=== PATIENT | female | born 1955 | race Caucasian/White ===

== ENCOUNTER → 2016-08-13 | Outpatient (CLI) | payer BC, MEDICAID ==
[~2016-08-13] MED LIST: IOHEXOL 350 MG/ML 100 ML (OMNIPAQUE 350) VIAL IV ONE; NS 100 ML (IVPB) BAG IV ONE
[2016-08-13 13:13] LABS: BLOOD UREA NITROGEN 11 MG/DL (7-18); BUN/CREATININE RATIO 13; CREATININE SERUM 0.82 MG/DL (0.60-1.30); GFR ESTIMATED > 60
--- NOTE | 2016-08-13 17:42 | Diagnostic Imaging Report ---
PROCEDURE: CT chest with contrast only. TECHNIQUE: Multiple contiguous axial images were obtained through the chest after administration of intravenous contrast. INDICATION: Left lung mass seen on chest x-ray performed in an outside facility. 100 mL of Omnipaque 350 is administered intravenously. FINDINGS: There are minimal areas of atelectasis in the mid and lower left lung seen. This is not associated with significant consolidation, mass or suspicious nodule. There is no pleural or pericardial effusion. The thoracic aorta is normal in caliber. The heart size appears normal. No mediastinal mass. No hilar, mediastinal or axillary lymphadenopathy is seen. The sections of the upper abdomen demonstrate cholecystectomy clips. The osseous structures demonstrate mild degenerative changes. IMPRESSION: Mild subsegmental areas of atelectasis in the mid and lower left lung. No lung mass or suspicious nodule seen. Dictated by: Dictated on workstation # [id number]
== END ==
LOC: RAD 12:29
PROVIDERS: ATTEND Nurse Practitioner Family
DX: R91.8 Other nonspecific abnormal finding of lung field (principal); J98.11 Atelectasis
CPT/HCPCS: 36415; 71260; 82565; 84520

== ENCOUNTER → 2016-09-23 | Outpatient (CLI) | payer BC, MEDICAID ==
--- NOTE | 2016-10-02 09:50 | Diagnostic Imaging Report ---
Bilateral screening mammogram The current study was also evaluated with a Computer Aided Detection (CAD) system. Indication: Screening. No current complaints stated on the questionnaire. COMPARISON: 12/20/2008 FINDINGS: The breasts are composed of scattered fibroglandular densities. There are occasional benign-appearing calcifications. Allowing for technique and positional differences, no suspicious change is seen. IMPRESSION: No significant change. ACR BI-RADS Category 2: Benign findings. Result letter will be mailed to the patient. Note: At least 10% of breast cancer is not imaged by mammography. Dictated by: Dictated on workstation # [id number]
== END ==
LOC: RAD 14:58
PROVIDERS: ATTEND Nurse Practitioner Family
DX: Z12.31 Encounter for screening mammogram for malignant neoplasm of breast (principal)
CPT/HCPCS: 77067

== ENCOUNTER 2018-01-18 14:00 | Observation (INO) | payer BC, MEDICAID, OTHER ==
[~2018-01-18] VITALS: Ht 162.6 cm; Wt 98.4 kg
--- OUTSIDE RECORDS SUMMARY | 2018-01-18 14:04 | XMS REPORT ---
Author Author RAÚL CARLSON Organization [facility] Address [address] [place] [address] Care Team Providers Care Camp Dining Room Attendant Name Role Phone RAÚL CARLSON Unavailable PROBLEMS Type Condition ICD9-CM Code WAX89-YW Code Onset Dates Condition Status SNOMED Code Problem Post traumatic stress disorder (PTSD) F43.10 Active 05866407 Problem Psychophysiological insomnia F51.04 Active 392246649 Problem Essential (primary) hypertension I10 Active 58470608 Problem Bilateral low back pain without sciatica, unspecified chronicity M54.5 Active 510540066 Problem Forgetfulness R68.89 Active 46826214 Problem Severe episode of recurrent major depressive disorder, without psychotic features F33.2 Active 94102310 Problem Anxiety, generalized F41.1 Active 36497499 Problem Pinched nerve in neck G58.8 Active 90043123 Problem Type 2 diabetes mellitus without complication, without long-term current use of insulin E11.9 Active 071558677 Problem Vaginal dryness, menopausal N95.1 Active 39126013 Problem Mild intermittent asthma with acute exacerbation J45.21 Active 611641060 Problem Chronic nonintractable headache, unspecified headache type R51 Active 79649971 Problem Vitreous floaters of right eye H43.391 Active 20281324 ALLERGIES Substance Reaction Event Type Date Status Penicillin V Potassium anaphylaxis Drug Allergy Aug, Active tape Unknown Non Drug Allergy Aug, Active ENCOUNTERS Encounter Location Date Diagnosis [facility] [address] [facility] [id number], [place] [address] Dec, [facility] [address] [facility] [id number] [id number] Sep, Post traumatic stress disorder (PTSD) F43.10 ; Severe episode of recurrent major depressive disorder, without psychotic features F33.2 and Psychophysiological insomnia F51.04 [facility] [address] [id number], [place] [address] Aug, Dental examination Z01.20 [facility] [address] [id number], [place] [address] Aug, Dental caries on smooth surface penetrating into pulp K02.63 and Encounter for dental examination Z01.20 [facility] [address] [id number], [place] [address] Aug, Dental examination Z01.20 [facility] [id number] [place] [address] Aug, [facility] [id number] [place] [address] [phone] July, Other infective chronic otitis externa of right ear H60.391 [facility] [id number] [place] [address] July, [facility] [place] [id number] [place] [address] [phone] July, Other infective acute otitis externa of right ear H60.391 and Vaginal dryness, menopausal N95.1 [facility] [place] [id number] [place] [phone] July, [facility] [id number] [place] [address] [phone] July, Dental examination Z01.20 [facility] [address] [id number] [phone] July, [facility] [address] [place] [address] Jun, Post traumatic stress disorder (PTSD) F43.10 ; Severe episode of recurrent major depressive disorder, without psychotic features F33.2 and Psychophysiological insomnia F51.04 [facility] [place] [id number] [place] [id number] May, Cervicalgia M54.2 [facility] [id number] [place] [address] May, Pinched nerve in neck G58.8 [place] [id number] [place] [address] Apr, Post traumatic stress disorder (PTSD) F43.10 ; Severe episode of recurrent major depressive disorder, without psychotic features F33.2 and Psychophysiological insomnia F51.04 [place] [id number] [place] [address] Apr, [facility] [id number] [place] [address] [id number] 07 Apr, 2017 Mild intermittent asthma with acute exacerbation J45.21 [facility] [address] [id number] Apr, 2017 Chronic nonintractable headache, unspecified headache type R51 [place] [id number] [place] [address] Mar, Post traumatic stress disorder (PTSD) F43.10 ; Severe episode of recurrent major depressive disorder, without psychotic features F33.2 and Psychophysiological insomnia F51.04 [place] [id number] [place] [address] Mar, Post traumatic stress disorder (PTSD) F43.10 [facility] [id number] [place] [address] [phone] Mar, Type 2 diabetes mellitus without complication, without long-term current use of insulin E11.9 ; Bilateral low back pain without sciatica, unspecified chronicity M54.5 and Chronic nonintractable headache, unspecified headache type R51 [place] [id number] [place] [address] Feb, [facility] [address] [id number] Jan, Vitreous floaters of right eye H43.391 [facility] [id number] [place] [address] [phone] Jan, [place] [address] [address] Nov, Post traumatic stress disorder (PTSD) F43.10 ; Severe episode of recurrent major depressive disorder, without psychotic features F33.2 ; Psychophysiological insomnia F51.04 and Homeless Z59.0 [facility] [id number] [place] [address] Oct, Post traumatic stress disorder (PTSD) F43.10 ; Severe episode of recurrent major depressive disorder, without psychotic features F33.2 and Psychophysiological insomnia F51.04 [facility] [id number] [place] [address] [phone] Oct, Vaginal dryness, menopausal N95.1 and Dyspareunia in female N94.10 [facility] [id number] [place] [address] [phone] Oct, [facility] [id number] [place] [address] Aug, Post traumatic stress disorder (PTSD) F43.10 ; Severe episode of recurrent major depressive disorder, without psychotic features F33.2 and Psychophysiological insomnia F51.04 [facility] [id number] [place] [address] [phone] Aug, [facility] [id number] [place] [address] [phone] Aug, Well woman exam Z01.419 and Vaginal dryness, menopausal N95.1 [facility] [id number] [place] [address] July, [facility] [id number] [place] [address] July, [facility] [id number] [place] [address] July, Post traumatic stress disorder (PTSD) F43.10 ; Severe episode of recurrent major depressive disorder, without psychotic features F33.2 and Psychophysiological insomnia F51.04 [facility] [id number] [place] [address] [phone] July, Mass of left lung R91.8 [facility] [address], [place] [address] Jun, Shortness of breath R06.02 ; Wheezing R06.2 and Mild intermittent asthma with acute exacerbation J45.21 [facility] [address], [place] [address] May, Post traumatic stress disorder (PTSD) F43.10 ; Severe episode of recurrent major depressive disorder, without psychotic features F33.2 ; Essential (primary) hypertension I10 and Psychophysiological insomnia F51.04 [facility] [id number] [place] [phone] May, 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 and Headache, unspecified headache type R51 [facility] [id number] [place] [address] Apr, [facility] [id number] [place] [address] Apr, Post traumatic stress disorder (PTSD) F43.10 ; Severe episode of recurrent major depressive disorder, without psychotic features F33.2 ; Essential (primary) hypertension I10 and Psychophysiological insomnia F51.04 [facility] [address] [place] [address] 21664[address] Mar, Post traumatic stress disorder (PTSD) F43.10 and Severe episode of recurrent major depressive disorder, without psychotic features F33.2 [place] [address] [place] [address]53- 8[address] Feb, Post traumatic stress disorder (PTSD) F43.10 [place] [address] [place] [address]96[address] Feb, Post traumatic stress disorder (PTSD) F43.10 and Severe episode of recurrent major depressive disorder, without psychotic features F33.2 [facility] [address] [id number] Feb, Anxiety, generalized F41.1 and Severe episode of recurrent major depressive disorder, without psychotic features F33.2 [place] [address] [id number] [address] Feb, Severe episode of recurrent major depressive disorder, without psychotic features F33.2 and Anxiety, generalized F41.1 [facility] [place] [id number] [place] [address] [phone] Aug, [facility] [place] [id number] [place] [address] [phone] May, Forgetfulness R68.89 and Bilateral low back pain without sciatica, unspecified chronicity M54.5 [facility] [place] [id number] [place] [address] [phone] Apr, Forgetfulness R68.89 [facility] [place] [address] [id number] Jan, Irritant contact dermatitis due to other chemical products L24.5 [facility] [place] [id number] [place] [address] [phone] Sep, Nausea vomiting and diarrhea 787.91 [facility] [id number] [place] [address]46- 97[address] Jun, [facility] [id number] [place] [address] 56179 2546 Jun, [facility] [id number] [place] [address]46 July, [facility] [place] [id number] [place] [address] [phone] July, [facility] [place] [id number] [place] [address] [phone] Jun, [facility] [id number] [place] [address] 52176 2546 Jun, [facility] [place] [id number] [place] [address] [phone] May, [facility] [id number] [place] [address] 66194- 2546 May, [facility] [place] [id number] [place] [address] [phone] May, [facility] [address] [facility] [id number], [place] [address] May, [facility] [place] [facility] [address] [facility] [id number] [place] [address] May, [facility] [place] [facility] [address] [facility] [id number], [place] [address] May, [facility] [address] [facility] [id number] [place] [phone] Apr, [facility] [address] [facility] [id number], [place] [address] Apr, [facility] [address] [id number] [place] [phone] Apr, [facility] [address] [id number], [place] [address] Apr, [facility] [address] [id number] [place] [id number] Apr, [facility] [address] [id number], [place] [address] Apr, [facility] [address] [id number] [place] [id number] Apr, [facility] [address] [id number], [place] [address] Apr, [facility] [id number] [place] [id number] Apr, [facility] [place] [facility] [address] [id number], [place] [address] Apr, [facility] [place] [facility] [address] [facility] [id number], [place] [address] Jan, [facility] [place] [facility] [address] [facility] [id number], [place] [address] Jan, [facility] [address] [facility] [id number] [place] [phone] Dec, [facility] [address] [facility] [id number] [place] [id number] Oct, [facility] [place] [address] [facility] [id number] [place] [id number] Sep, [facility] [address] [facility] [id number] [place] [id number] Aug, [facility] [address] [id number] [place] [id number] Aug, [facility] [address] [id number] [place] [id number] Jun, [facility] [address] [facility] [id number] [place] [phone] May, [facility] [id number] [place] [phone] May, [facility] [address] [facility] [id number], [place] [address] Apr, IMMUNIZATIONS No Known Immunizations SOCIAL HISTORY Never Assessed REASON FOR VISIT Multi TE W N2O PLAN OF CARE Activity Details Follow Up PRN Reason: VITAL SIGNS Heart Rate 70 bpm 2017-09-08 Blood pressure systolic 172 mmHg 2017-09-08 Blood pressure diastolic 90 mmHg 2017-09-08 MEDICATIONS Medication Instructions Dosage Frequency Start Date End Date Duration Status Trazodone HCl 100 mg Orally Once a day 1/2 tablet at bedtime 24h 30 days Active Ibuprofen 800 MG Orally Three times a day 1 tablet 8h 23 May, 2015 Active Ventolin HFA 108 (90 Base) MCG/ACT Inhalation 4 times a day 2 puffs as needed 6h 07 Apr, 2017 Active Acetaminophen Active Ambien 5 mg Orally Once a day 1 tablet at bedtime 24h 30 days Active [place] 7.5-325 MG Orally every 4-6 hours as needed 1 tablet Aug, Active Clindamycin HCl 150 MG Orally with food every 8 hrs 2 capsules 8h 7 days Active Premarin 0.625 MG/GM Vaginal Daily for Three Weeks, 1 Week off then every other day for 3 weeks, then twice weekly 1 gram Active Cipro HC 0.2-1 % Otic Twice a day 3 drops into affected ear 12h July, 7 day(s) Active RESULTS No Results PROCEDURES Procedure Date Ordered Result Body Site EXTRAC ERUPTED TOOTH/EXPOSED ROOT September 08, 2017 SURG REMOVAL ERUPTED TOOTH September 08, 2017 Billing Notes on claim September 08, 2017 ANALG ANXIOLYSIS INHAL NITROUS OXID September 08, 2017 INSTRUCTIONS MEDICATIONS ADMINISTERED No Known Medications MEDICAL (GENERAL) HISTORY Type Description Date Medical History hypertension Medical History type II diabetes Medical History depression Medical History acid reflux Medical History anxiety Medical History PTSD Medical History headache Medical History asthma Surgical History cholecystectomy 1979 Surgical History tonsillectomy childhood Surgical History hysterectomy, total with bilateral salpingo-oophorectomy (BSO ) 1996 Hospitalization History surgeries
--- OUTSIDE RECORDS SUMMARY | 2018-01-18 14:04 | XMS REPORT ---
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 Name Role Phone CHRISTIAN RAYMOND Unavailable PROBLEMS Type Condition ICD9-CM Code TQS43-RB Code Onset Dates Condition Status SNOMED Code Problem Post traumatic stress disorder (PTSD) F43.10 Active 65224939 Problem Psychophysiological insomnia F51.04 Active 260531167 Problem Essential (primary) hypertension I10 Active 54830836 Problem Bilateral low back pain without sciatica, unspecified chronicity M54.5 Active 794359160 Problem Forgetfulness R68.89 Active 24720497 Problem Severe episode of recurrent major depressive disorder, without psychotic features F33.2 Active 19596323 Problem Anxiety, generalized F41.1 Active 17492103 Problem Pinched nerve in neck G58.8 Active 72161552 Problem Type 2 diabetes mellitus without complication, without long-term current use of insulin E11.9 Active 272546859 Problem Vaginal dryness, menopausal N95.1 Active 20428317 Problem Mild intermittent asthma with acute exacerbation J45.21 Active 765120783 Problem Chronic nonintractable headache, unspecified headache type R51 Active 80651219 Problem Vitreous floaters of right eye H43.391 Active 75239246 ALLERGIES No Information ENCOUNTERS Encounter Location Date Diagnosis [facility] [id number] [id number] Dec, [facility] [id number] [id number] Nov, [facility] [address] [address] 11 Sep, 2017 Post traumatic stress disorder (PTSD) F43.10 ; Severe episode of recurrent major depressive disorder, without psychotic features F33.2 and Psychophysiological insomnia F51.04 [facility] [address] [id number] [address] Aug, Dental examination Z01.20 [facility] [id number] [place] [address] Aug, Dental caries on smooth surface penetrating into pulp K02.63 and Encounter for dental examination Z01.20 [facility] [id number] [place] [address] Aug, Dental examination Z01.20 [facility] [id number] [place] [address] Aug, [facility] [place] [id number] [place] [id number] July, Other infective chronic otitis externa of right ear H60.391 [facility] [id number] [place] [address] July, [facility] [place] [id number] [place] [phone] July, Other infective acute otitis externa of right ear H60.391 and Vaginal dryness, menopausal N95.1 [facility] [address] [id number] [id number] July, [facility] [address] [id number][place] [phone] July, Dental examination Z01.20 [facility] [address] [id number][place] [id number] July, [facility] [address] [place] [address] Jun, Post traumatic stress disorder (PTSD) F43.10 ; Severe episode of recurrent major depressive disorder, without psychotic features F33.2 and Psychophysiological insomnia F51.04 [facility] [place] [id number] [id number] May, Cervicalgia M54.2 [facility] [id number] [place] [address] May, Pinched nerve in neck G58.8 [place] [address] [address] Apr, Post traumatic stress disorder (PTSD) F43.10 ; Severe episode of recurrent major depressive disorder, without psychotic features F33.2 and Psychophysiological insomnia F51.04 [address] [address] [address] Apr, [facility] [id number] [place] [id number] Apr, Mild intermittent asthma with acute exacerbation J45.[address] [id number] Apr, Chronic nonintractable headache, unspecified headache type R51 [address] [address] [address] Mar, Post traumatic stress disorder (PTSD) F43.10 ; Severe episode of recurrent major depressive disorder, without psychotic features F33.2 and Psychophysiological insomnia F51.04 [place] [address] [address] Mar, Post traumatic stress disorder (PTSD) F43.10 [address] [id number] [place] [id number] Mar, Type 2 diabetes mellitus without complication, without long-term current use of insulin E11.9 ; Bilateral low back pain without sciatica, unspecified chronicity M54.5 and Chronic nonintractable headache, unspecified headache type R51 [place] [id number] [place] [address] Feb, [address] [id number] Jan, Vitreous floaters of right eye H43.391 [facility] [id number] [place] [id number] Jan, [place] [address] [place] [address] Nov, Post traumatic stress disorder (PTSD) F43.10 ; Severe episode of recurrent major depressive disorder, without psychotic features F33.2 ; Psychophysiological insomnia F51.04 and Homeless Z59.0 [facility] [id number] [place] [address] Oct, Post traumatic stress disorder (PTSD) F43.10 ; Severe episode of recurrent major depressive disorder, without psychotic features F33.2 and Psychophysiological insomnia F51.04 [facility] [id number] [place] [address] [phone] Oct, Vaginal dryness, menopausal N95.1 and Dyspareunia in female N94.10 [facility] [id number] [place] [address] [id number] Oct, [facility] [id number] [place] [address] Aug, Post traumatic stress disorder (PTSD) F43.10 ; Severe episode of recurrent major depressive disorder, without psychotic features F33.2 and Psychophysiological insomnia F51.04 [facility] [id number] [place] [address] [id number] Aug, [facility] [id number] [place] [address] [phone] Aug, Well woman exam Z01.419 and Vaginal dryness, menopausal N95.1 [facility] [id number] [place] [address] July, [facility] [id number] [place] [address] July, [facility] [id number] [place] [address] July, Post traumatic stress disorder (PTSD) F43.10 ; Severe episode of recurrent major depressive disorder, without psychotic features F33.2 and Psychophysiological insomnia F51.04 [facility] [id number] [place] [address] [id number] July, Mass of left lung R91.8 [facility] [address], [place] [address] Jun, Shortness of breath R06.02 ; Wheezing R06.2 and Mild intermittent asthma with acute exacerbation J45.21 [facility] [address]100[place], [place] [address] May, Post traumatic stress disorder (PTSD) F43.10 ; Severe episode of recurrent major depressive disorder, without psychotic features F33.2 ; Essential (primary) hypertension I10 and Psychophysiological insomnia F51.04 [facility] [id number][place] [id number] May, 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 and Headache, unspecified headache type R51 [facility] [id number] [place] [address] Apr, [facility] [id number] [place] [address]65[address] Apr, Post traumatic stress disorder (PTSD) F43.10 ; Severe episode of recurrent major depressive disorder, without psychotic features F33.2 ; Essential (primary) hypertension I10 and Psychophysiological insomnia F51.04 [facility] [address] [place] [address]47[address] Mar, Post traumatic stress disorder (PTSD) F43.10 and Severe episode of recurrent major depressive disorder, without psychotic features F33.2 [facility] [address] [place] [address] Feb, Post traumatic stress disorder (PTSD) F43.10 [facility] [address] [place] [address] Feb, Post traumatic stress disorder (PTSD) F43.10 and Severe episode of recurrent major depressive disorder, without psychotic features F33.2 [facility] [id number], [place] [id number] Feb, Anxiety, generalized F41.1 and Severe episode of recurrent major depressive disorder, without psychotic features F33.2 [place] [id number] [place] [address] Feb, Severe episode of recurrent major depressive disorder, without psychotic features F33.2 and Anxiety, generalized F41.1 [facility] [place] [id number] [place] [address] [id number] Aug, [facility] [place] [id number] [place] [address] [phone] May, Forgetfulness R68.89 and Bilateral low back pain without sciatica, unspecified chronicity M54.5 [facility] [place] [id number] [place] [address] [id number] Apr, Forgetfulness R68.89 [facility] [place] [address] [id number] Jan, Irritant contact dermatitis due to other chemical products L24.5 [facility] [place] [id number] [place] [address] [phone] Sep, Nausea vomiting and diarrhea 787.91 [facility] [id number] [place] [address]- [address] Jun, [facility] [id number] [place] [address] 92104- [address] Jun, [facility] [id number] [place] [address]22- [address] July, [facility] [place] [id number] [place] [address] [id number] July, [facility] [place] [id number] [place] [address] [phone] Jun, [facility] [id number] [place] [address] 2546 Jun, [facility] [place] [id number] [place] [address] [phone] May, [facility] [id number] [place] [address]18- [address] May, [facility] [place] [id number] [place] [address] [phone] May, [facility] [place] [facility] [address] [facility] [id number], [place] [address] May, [facility] [place] [facility] [address] [facility] [id number] [place] [address]- [address] May, [facility] [place] [facility] [address] [facility] [id number] [place] [address]- [address] May, [facility] [address] [facility] [id number][place] [phone] Apr, [facility] [place] [facility] [address] [facility] [id number] [place] [address] Apr, [facility] [address] [facility] [id number][place] [phone] Apr, [facility] [place] [facility] [address], [place] [address] Apr, [facility] [address] [id number][place] [id number] Apr, [facility] [place] [facility] [id number], [place] [address] Apr, [facility] [address] [id number][place] [id number] Apr, [facility] [place] [facility] [id number], [place] [address] Apr, [facility] [address] [id number], [place] [id number] Apr, [facility] [place] [facility] [id number], [place] [address] Apr, [facility] [place] [facility] [address], [place] [address] Jan, [facility] [place] [facility] [address] [facility] [id number], [place] [address] Jan, [facility] [address] [id number][place] [id number] Dec, [facility] [address] [facility] [id number][place] [phone] Oct, [facility] [address] [facility] [id number], [place] [id number] Sep, [facility] [address] [id number], [place] [phone] Aug, [facility] [address] [id number][place] [id number] Aug, [facility] [address] [id number][place] [id number] Jun, [facility] [address] [id number] [id number] May, [id number] [id number] May, [facility] [address] [facility] [id number] [place] [address] Apr, IMMUNIZATIONS No Known Immunizations SOCIAL HISTORY Never Assessed REASON FOR VISIT Requests return call PLAN OF CARE VITAL SIGNS MEDICATIONS Medication Instructions Dosage Frequency Start Date End Date Duration Status Abilify 5 mg Orally Once a day 1 tablet 24h May, 30 days Active RESULTS No Results PROCEDURES No Known procedures INSTRUCTIONS MEDICATIONS ADMINISTERED No Known Medications MEDICAL [...]
--- OUTSIDE RECORDS SUMMARY | 2018-01-18 14:05 | XMS REPORT ---
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 Role Phone RAÚL CARLSON Unavailable PROBLEMS Type Condition ICD9-CM Code RAB25-NC Code Onset Dates Condition Status SNOMED Code Problem Post traumatic stress disorder (PTSD) F43.10 Active 30721393 Problem Psychophysiological insomnia F51.04 Active 574281922 Problem Essential (primary) hypertension I10 Active 43811267 Problem Bilateral low back pain without sciatica, unspecified chronicity M54.5 Active 510320406 Problem Forgetfulness R68.89 Active 07099215 Problem Severe episode of recurrent major depressive disorder, without psychotic features F33.2 Active 14993832 Problem Anxiety, generalized F41.1 Active 22026599 Problem Pinched nerve in neck G58.8 Active 16919172 Problem Type 2 diabetes mellitus without complication, without long-term current use of insulin E11.9 Active 890942777 Problem Vaginal dryness, menopausal N95.1 Active 76927503 Problem Mild intermittent asthma with acute exacerbation J45.21 Active 374998469 Problem Chronic nonintractable headache, unspecified headache type R51 Active 05972797 Problem Vitreous floaters of right eye H43.391 Active 49247815 ALLERGIES No Information ENCOUNTERS Encounter Location Date Diagnosis [facility] [address] [facility] [id number], [place] [address] Dec, [facility] [address], [place] [address] 11 Sep, 2017 Post traumatic stress disorder (PTSD) F43.10 ; Severe episode of recurrent major depressive disorder, without psychotic features F33.2 and Psychophysiological insomnia F51.04 [facility] [address] [id number] [place] [address] 25 Robel, 2018 Dental examination Z01.20 [facility] [address] [id number] [place] [address] Aug, Dental caries on smooth surface penetrating into pulp K02.63 and Encounter for dental examination Z01.20 [facility] [address] [id number] [place] [address] Aug, Dental examination Z01.20 [facility] [address] [id number] [place] [address] Aug, [facility] [id number] [place] [address] [id number] July, Other infective chronic otitis externa of right ear H60.391 [facility] [address] [id number] [place] [address] July, [facility] [id number] [place] [address] [phone] July, Other infective acute otitis externa of right ear H60.391 and Vaginal dryness, menopausal N95.1 [facility] [address] [id number] [phone] July, [facility] [address] [id number][place] [id number] July, Dental examination Z01.20 [facility] [address] [facility] [address] [id number] [phone] July, [facility] [address] [place] [address] Jun, Post traumatic stress disorder (PTSD) F43.10 ; Severe episode of recurrent major depressive disorder, without psychotic features F33.2 and Psychophysiological insomnia F51.04 [facility] [id number] [place] [address] [phone] May, Cervicalgia M54.2 [facility] [address] [place] [address] May, Pinched nerve in neck G58.8 [place] [id number] [place] [address] Apr, Post traumatic stress disorder (PTSD) F43.10 ; Severe episode of recurrent major depressive disorder, without psychotic features F33.2 and Psychophysiological insomnia F51.04 [place] [facility] [id number] [place] [address] Apr, [id number] [place] [address] [phone] [id number] Apr, 2017 Mild intermittent asthma with acute exacerbation J45.21 [address] [place] [id number] [place] [address] [phone] Apr, Chronic nonintractable headache, unspecified headache type R51 [place] [facility] [id number] [place] [address] Mar, Post traumatic stress disorder (PTSD) F43.10 ; Severe episode of recurrent major depressive disorder, without psychotic features F33.2 and Psychophysiological insomnia F51.04 [place] [id number] [place] [address] Mar, Post traumatic stress disorder (PTSD) F43.10 [place] [id number] [place] [address] [id number] Mar, Type 2 diabetes mellitus without complication, without long-term current use of insulin E11.9 ; Bilateral low back pain without sciatica, unspecified chronicity M54.5 and Chronic nonintractable headache, unspecified headache type R51 [place] [address] [place] [address] Feb, [place] [id number] [place] [address] [phone] Jan, Vitreous floaters of right eye H43.391 [address] [id number] [place] [address] [id number] Jan, [place] [id number] [place] [address] Nov, Post traumatic stress disorder (PTSD) F43.10 ; Severe episode of recurrent major depressive disorder, without psychotic features F33.2 ; Psychophysiological insomnia F51.04 and Homeless Z59.0 [facility] [address] [address] Oct, Post traumatic stress disorder (PTSD) F43.10 ; Severe episode of recurrent major depressive disorder, without psychotic features F33.2 and Psychophysiological insomnia F51.04 [facility] [id number] [place] [address] [id number] Oct, Vaginal dryness, menopausal N95.1 and Dyspareunia in female N94.10 [facility] [address] [id number] Oct, [facility] [id number] [place] [address] Aug, Post traumatic stress disorder (PTSD) F43.10 ; Severe episode of recurrent major depressive disorder, without psychotic features F33.2 and Psychophysiological insomnia F51.04 [facility] [id number] [place] [address] [phone] Aug, [facility] [id number] [place] [address] [id number] Aug, Well woman exam Z01.419 and Vaginal dryness, menopausal N95.1 [facility] [id number] [place] [address] July, [facility] [id number] [place] [address] July, [facility] [id number] [place] [address] July, Post traumatic stress disorder (PTSD) F43.10 ; Severe episode of recurrent major depressive disorder, without psychotic features F33.2 and Psychophysiological insomnia F51.04 [facility] [id number] [place] [address] [phone] July, Mass of left lung R91.8 [facility] [id number] [place] [address] Jun, Shortness of breath R06.02 ; Wheezing R06.2 and Mild intermittent asthma with acute exacerbation J45.21 [place] [id number] [place] [address] May, Post traumatic stress disorder (PTSD) F43.10 ; Severe episode of recurrent major depressive disorder, without psychotic features F33.2 ; Essential (primary) hypertension I10 and Psychophysiological insomnia F51.04 [facility] [id number] [phone] May, 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 and Headache, unspecified headache type R51 [place] [id number] [place] [address] 99383[address] Apr, [place] [id number] [place] [address] 51971[address] 7183 Apr, Post traumatic stress disorder (PTSD) F43.10 ; Severe episode of recurrent major depressive disorder, without psychotic features F33.2 ; Essential (primary) hypertension I10 and Psychophysiological insomnia F51.04 [place] [address] [place] [address] 40535- 2759 Mar, Post traumatic stress disorder (PTSD) F43.10 and Severe episode of recurrent major depressive disorder, without psychotic features F33.2 [place] [address] [place] [address] 02905- 5[address] Feb, Post traumatic stress disorder (PTSD) F43.10 [facility] [facility] [id number] [place] [address] 13568- 8[address] Feb, Post traumatic stress disorder (PTSD) F43.10 and Severe episode of recurrent major depressive disorder, without psychotic features F33.2 [facility] [address] [id number] Feb, Anxiety, generalized F41.1 and Severe episode of recurrent major depressive disorder, without psychotic features F33.2 [facility] [facility] [id number] [place] [address] 65530- 7983 Feb, Severe episode of recurrent major depressive disorder, without psychotic features F33.2 and Anxiety, generalized F41.1 [facility] [id number] [place] [address] [id number] Aug, [facility] [id number] [place] [address] [id number] May, Forgetfulness R68.89 and Bilateral low back pain without sciatica, unspecified chronicity M54.5 [facility] [id number] [place] [address] [phone] Apr, Forgetfulness R68.89 [facility] [id number] [place] [address] [id number] Jan, Irritant contact dermatitis due to other chemical products L24.5 [facility] [id number] [place] [address] [id number] Sep, Nausea vomiting and diarrhea 787.91 [facility] [address] [address] Jun, [facility] [id number] [place] [address] 11249- 6816 Jun, [facility] [address] [address] July, [facility] [id number] [place] [address] [id number] July, [facility] [id number] [place] [address] [phone] Jun, [facility] [id number] [place] [address] 72009- 5387 Jun, [facility] [id number] [place] [address] [id number] May, [facility] [id number] [place] [address] 82534- 5696 May, [facility] [id number] [place] [address] [phone] May, [facility] [address] [id number] 3566 May, [facility] [address] [facility] [id number], [place] [address] May, [facility] [address] [facility] [id number], [place] [address] May, [facility] [address] [id number] [place] [id number] Apr, [facility] [address] [facility] [id number], [place] [address] Apr, [facility] [address] [id number] [id number] Apr, [facility] [address] [facility] [id number], [place] [address] Apr, [facility] [address] [id number][place] [phone] Apr, [facility] [address] [facility] [id number], [place] [address] Apr, [facility] [address] [id number][place] [id number] Apr, [facility] [address] [facility] [id number], [place] [address] Apr, [facility] [address] [facility] [id number][place] [id number] Apr, [facility] [address] [facility] [id number], [place] [address] Apr, [facility] [address] [facility] [id number], [place] [address] Jan, [facility] [address] [facility] [id number], [place] [address] Jan, [facility] [address] [id number][place] [id number] Dec, [facility] [address] [id number][place] [id number] Oct, [facility] [address] [id number][place] [id number] Sep, [place] [id number] [id number] Aug, [place] [id number] [id number] Aug, [place] [id number] [id number] Jun, [place] [id number] [id number] May, [address] [id number] [id number] May, [facility] [address] [facility] [id number]12[place] Apr, IMMUNIZATIONS No Known Immunizations SOCIAL HISTORY Never Assessed REASON FOR VISIT Referral Change requested PLAN OF CARE VITAL SIGNS MEDICATIONS Unknown Medications RESULTS No Results PROCEDURES No Known procedures [...]
--- OUTSIDE RECORDS SUMMARY | 2018-01-18 14:05 | XMS REPORT ---
Author Author CHRISTIAN RAYMOND [facility] [address] Address [address] [place] [address] Care Team Providers Care Criminal Legal Assistant Name Role Phone FLOR RAYMONDJONO Unavailable PROBLEMS Type Condition ICD9-CM Code KYI94-[place] Code Onset Dates Condition Status SNOMED Code Problem Post traumatic stress disorder (PTSD) F43.10 Active 22373391 Problem Psychophysiological insomnia F51.04 Active 055805682 Problem Essential (primary) hypertension I10 Active 49587112 Problem Bilateral low back pain without sciatica, unspecified chronicity M54.5 Active 848359089 Problem Forgetfulness R68.89 Active 75152715 Problem Severe episode of recurrent major depressive disorder, without psychotic features F33.2 Active 02005296 Problem Anxiety, generalized F41.1 Active 55251883 Problem Pinched nerve in neck G58.8 Active 53326215 Problem Type 2 diabetes mellitus without complication, without long-term current use of insulin E11.9 Active 425296397 Problem Vaginal dryness, menopausal N95.1 Active 74688382 Problem Mild intermittent asthma with acute exacerbation J45.21 Active 366733844 Problem Chronic nonintractable headache, unspecified headache type R51 Active 19652607 Problem Vitreous floaters of right eye H43.391 Active 04297595 ALLERGIES No Information ENCOUNTERS Encounter Location Date Diagnosis [facility] [address] [facility] [id number] [address] Dec, [facility] [address] [id number] [address] Sep, Post traumatic stress disorder (PTSD) F43.10 ; Severe episode of recurrent major depressive disorder, without psychotic features F33.2 and Psychophysiological insomnia F51.04 [facility] [address] [id number] [address] Aug, Dental examination Z01.20 [facility] [address] [id number] [place] [address] Aug, Dental caries on smooth surface penetrating into pulp K02.63 and Encounter for dental examination Z01.20 [facility] [address] [id number] [place] [address] Aug, Dental examination Z01.20 [facility] [id number] [place] [address] Aug, [facility] [id number] [place] [address] [phone] July, Other infective chronic otitis externa of right ear H60.391 [facility] [address] [id number] [place] [address] July, [facility] [id number] [place] [address] [id number] July, Other infective acute otitis externa of right ear H60.391 and Vaginal dryness, menopausal N95.1 [facility] [address] [id number] [phone] July, [facility] [id number] [place] [id number] July, Dental examination Z01.20 [facility] [address] [facility] [address] [id number][place] [phone] July, [facility] [address] [place] [address] Jun, Post traumatic stress disorder (PTSD) F43.10 ; Severe episode of recurrent major depressive disorder, without psychotic features F33.2 and Psychophysiological insomnia F51.04 [facility] [id number] [place] [address] [phone] May, Cervicalgia M54.2 [facility] [id number] [place] [address] May, Pinched nerve in neck G58.8 [facility] [id number] [place] [address] Apr, Post traumatic stress disorder (PTSD) F43.10 ; Severe episode of recurrent major depressive disorder, without psychotic features F33.2 and Psychophysiological insomnia F51.04 [id number] [place] [address] Apr, [facility] [id number] [place] [address] [phone] Apr, Mild intermittent asthma with acute exacerbation J45.21 [id number] [place] [address] [phone] Apr, Chronic nonintractable headache, unspecified headache type R51 [address] [id number] [place] [address] Mar, Post traumatic stress disorder (PTSD) F43.10 ; Severe episode of recurrent major depressive disorder, without psychotic features F33.2 and Psychophysiological insomnia F51.04 [address] [place] [id number] [place] [address] Mar, Post traumatic stress disorder (PTSD) F43.10 [id number] [place] [address] [id number] Mar, Type 2 diabetes mellitus without complication, without long-term current use of insulin E11.9 ; Bilateral low back pain without sciatica, unspecified chronicity M54.5 and Chronic nonintractable headache, unspecified headache type R51 [address] [place] [address] Feb, [id number] [place] [address] [id number] Jan, Vitreous floaters of right eye H43.391 [id number] [place] [address] [phone] Jan, [address] [place] [id number] [place] [address] Nov, Post traumatic stress disorder (PTSD) F43.10 ; Severe episode of recurrent major depressive disorder, without psychotic features F33.2 ; Psychophysiological insomnia F51.04 and Homeless Z59.0 [facility] [id number] [place] [address] Oct, Post traumatic stress disorder (PTSD) F43.10 ; Severe episode of recurrent major depressive disorder, without psychotic features F33.2 and Psychophysiological insomnia F51.04 [facility] [id number] [place] [address] [phone] Oct, Vaginal dryness, menopausal N95.1 and Dyspareunia in female N94.10 [facility] [id number] [place] [address] [id number] Oct, [facility] [id number] [place] [address] Aug, Post traumatic stress disorder (PTSD) F43.10 ; Severe episode of recurrent major depressive disorder, without psychotic features F33.2 and Psychophysiological insomnia F51.04 [facility] [id number] [place] [address] [id number] Aug, [facility] [id number] [place] [address] [id number] Aug, Well woman exam Z01.419 and Vaginal dryness, menopausal N95.1 [facility] [id number] [place] [address] July, [facility] [id number] [place] [address]26[address] July, [facility] [id number] [place] [address] 76902- [address] July, Post traumatic stress disorder (PTSD) F43.10 ; Severe episode of recurrent major depressive disorder, without psychotic features F33.2 and Psychophysiological insomnia F51.04 [facility] [id number] [place] [address] [id number] July, Mass of left lung R91.8 [facility] [id number] [place] [address] Jun, Shortness of breath R06.02 ; Wheezing R06.2 and Mild intermittent asthma with acute exacerbation J45.21 [facility] [address] [address] May, Post traumatic stress disorder (PTSD) F43.10 ; Severe episode of recurrent major depressive disorder, without psychotic features F33.2 ; Essential (primary) hypertension I10 and Psychophysiological insomnia F51.04 [facility] [id number] [phone] May, 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 and Headache, unspecified headache type R51 [facility] [address] [place] [address]21[address] Apr, [facility] [id number] [place] [address] 47485- 3798 Apr, Post traumatic stress disorder (PTSD) F43.10 ; Severe episode of recurrent major depressive disorder, without psychotic features F33.2 ; Essential (primary) hypertension I10 and Psychophysiological insomnia F51.04 [address] [address] Mar, Post traumatic stress disorder (PTSD) F43.10 and Severe episode of recurrent major depressive disorder, without psychotic features F33.2 [facility] [address] [address] Feb, Post traumatic stress disorder (PTSD) F43.10 [address] [place] [address] Feb, Post traumatic stress disorder (PTSD) F43.10 and Severe episode of recurrent major depressive disorder, without psychotic features F33.2 [facility] [id number][place] [id number] Feb, Anxiety, generalized F41.1 and Severe episode of recurrent major depressive disorder, without psychotic features F33.2 [facility] [address] [address] Feb, Severe episode of recurrent major depressive disorder, without psychotic features F33.2 and Anxiety, generalized F41.1 [facility] [id number][place] [id number] Aug, [facility] [id number] [place] [address] [id number] May, Forgetfulness R68.89 and Bilateral low back pain without sciatica, unspecified chronicity M54.5 [facility] [id number] [place] [address] [id number] Apr, Forgetfulness R68.89 [facility] [id number] [place] [address] [id number] Jan, Irritant contact dermatitis due to other chemical products L24.5 [facility] [id number] [place] [address] [id number] Sep, Nausea vomiting and diarrhea 787.91 [facility] [id number] [place] [address] 51044- 6996 Jun, [facility] [id number] [place] [address] 21894- 2546 Jun, [facility] [id number] [place] [address] 46937- 0366 July, [facility] [id number] [place] [address] [id number] July, [facility] [id number] [place] [address] [id number] Jun, [facility] [id number] [place] [address] 10617 2546 Jun, [facility] [id number] [place] [address] [phone] May, [facility] [id number] [place] [address] 35391- 1696 May, [facility] [id number] [place] [address] [id number] May, [facility] [id number] [place] [address] 63627- 2826 May, [facility] [address] [facility] [id number] [place] [address] May, [facility] [address] [facility] [id number] [place] [address] May, [facility] [address] [id number][place] [phone] Apr, [facility] [address] [facility] [id number] [place] [address] Apr, [facility] [address] [id number] [place] [id number] Apr, [facility] [address] [facility] [id number] [place] [address] Apr, [facility] [address] [id number][place] [id number] Apr, [facility] [address] [facility] [id number] [place] [address]46 Apr, [facility] [address] [id number], [place] [phone] Apr, [facility] [address] [facility] [id number] [place] [address] Apr, [facility] [address] [id number], [place] [id number] Apr, [facility] [address] [facility] [id number] [place] [address] Apr, [facility] [address] [facility] [id number] [place] [address] Jan, [facility] [address] [facility] [id number] [place] [address] Jan, [facility] [address] [id number], [place] [id number] Dec, [facility] [address] [id number][place] [phone] Oct, [facility] [address] [id number] [place] [phone] Sep, [facility] [address] [facility] [id number][place] [id number] Aug, [facility] [address] [facility] [id number], [place] [id number] Aug, [facility] [address] [facility] [id number], [place] [phone] Jun, [facility] [address] [facility] [id number], [place] [id number] May, [facility] [address] [facility] [id number][place] [phone] May, [facility] [address] [facility] [id number] [place] [address] Apr, IMMUNIZATIONS No Known Immunizations SOCIAL HISTORY Never Assessed REASON FOR VISIT f/u PLAN OF CARE Activity Details Follow Up 3 Months Reason: VITAL SIGNS Height 64.75 in 2017-09-29 Weight 229.0 lbs 2017-09-29 Heart Rate 78 bpm 2017-09-29 Respiratory Rate 22 2017-09-29 BMI 38.4 kg/m2 2017-09-29 Blood pressure systolic 144 mmHg 2017-09-29 Blood pressure diastolic 74 mmHg 2017-09-29 MEDICATIONS Medication Instructions Dosage Frequency Start Date End Date Duration Status Cipro HC 0.2-1 % Otic Twice a day 3 drops into affected ear 12h July, 7 day(s) Not-Taking Premarin 0.625 MG/GM Vaginal Daily for Three Weeks, 1 Week off then every other day for 3 weeks, then twice weekly 1 gram Active Acetaminophen Active [place]ao 7.5-325 MG Orally every 4-6 hours as needed 1 tablet 20 Aug, 2017 Not-Taking Ventolin HFA 108 (90 Base) MCG/ACT Inhalation 4 times a day 2 puffs as needed 6h Apr, Active Ibuprofen 800 MG Orally Three times a day 1 tablet 8h 23 May, 2015 Active Trazodone HCl 50 mg Orally 2 times a day 1 tablet 12h 30 days Active Clindamycin HCl 150 MG Orally with food every 8 hrs 2 capsules 8h 7 days Not-Taking Ambien 5 mg Orally Once a day 1 tablet at bedtime 24h Sep, 30 days Active RESULTS No Results PROCEDURES [...]
--- OUTSIDE RECORDS SUMMARY | 2018-01-18 14:05 | XMS REPORT ---
Author Author KELSY QUESADA Organization [facility] Address [address] [place] [address] Care Team Providers Care Deputy Director Name Role Phone KELSY QUESADA Unavailable PROBLEMS Type Condition ICD9-CM Code YFT71-EC Code Onset Dates Condition Status SNOMED Code Problem Post traumatic stress disorder (PTSD) F43.10 Active 74790914 Problem Psychophysiological insomnia F51.04 Active 512393820 Problem Essential (primary) hypertension I10 Active 32305859 Problem Bilateral low back pain without sciatica, unspecified chronicity M54.5 Active 584867069 Problem Forgetfulness R68.89 Active 46116548 Problem Severe episode of recurrent major depressive disorder, without psychotic features F33.2 Active 09104538 Problem Anxiety, generalized F41.1 Active 04064327 Problem Pinched nerve in neck G58.8 Active 31497247 Problem Type 2 diabetes mellitus without complication, without long-term current use of insulin E11.9 Active 173206252 Problem Vaginal dryness, menopausal N95.1 Active 08427063 Problem Mild intermittent asthma with acute exacerbation J45.21 Active 474513344 Problem Chronic nonintractable headache, unspecified headache type R51 Active 81915500 Problem Vitreous floaters of right eye H43.391 Active 26658699 ALLERGIES Substance Reaction Event Type Date Status Penicillin V Potassium anaphylaxis Drug Allergy Aug, Active tape Unknown Non Drug Allergy Aug, Active ENCOUNTERS Encounter Location Date Diagnosis [facility] [address] [facility] [id number] [address] Dec, [facility] [address] [facility] [id number] [address] Sep, Post traumatic stress disorder (PTSD) F43.10 ; Severe episode of recurrent major depressive disorder, without psychotic features F33.2 and Psychophysiological insomnia F51.04 [facility] [address] [id number], [place] [address] Aug, Dental examination Z01.20 [facility] [id number] [place] [address] Aug, Dental caries on smooth surface penetrating into pulp K02.63 and Encounter for dental examination Z01.20 [facility] [address] [id number], [place] [address] Aug, Dental examination Z01.20 [facility] [id number] [place] [address] Aug, [facility] [id number] [place] [phone] July, Other infective chronic otitis externa of right ear H60.391 [facility] [id number] [place] [address] July, [facility] [id number] [place] [id number] July, Other infective acute otitis externa of right ear H60.391 and Vaginal dryness, menopausal N95.1 [facility] [place] [address] [id number] [place] [id number] July, [facility] [address] [id number] [place] [id number] July, Dental examination Z01.20 [facility] [address] [id number] [place] [phone] July, [facility] [address] [address] Jun, Post traumatic stress disorder (PTSD) F43.10 ; Severe episode of recurrent major depressive disorder, without psychotic features F33.2 and Psychophysiological insomnia F51.04 [facility] [id number] [id number] May, Cervicalgia M54.2 [facility] [id number] [place] [phone] May, Pinched nerve in neck G58.8 [facility] [id number] [place] [address] Apr, Post traumatic stress disorder (PTSD) F43.10 ; Severe episode of recurrent major depressive disorder, without psychotic features F33.2 and Psychophysiological insomnia F51.04 [place] [address] [address] Apr, [facility] [id number] [place] [phone] Apr, Mild intermittent asthma with acute exacerbation J45.[address] [id number] Apr, Chronic nonintractable headache, unspecified headache type R51 [place] [id number] [place] [address] Mar, Post traumatic stress disorder (PTSD) F43.10 ; Severe episode of recurrent major depressive disorder, without psychotic features F33.2 and Psychophysiological insomnia F51.04 [place] [id number] [place] [address] Mar, Post traumatic stress disorder (PTSD) F43.10 [facility] [id number] [place] [address] [id number] Mar, Type 2 diabetes mellitus without complication, without long-term current use of insulin E11.9 ; Bilateral low back pain without sciatica, unspecified chronicity M54.5 and Chronic nonintractable headache, unspecified headache type R51 [place] [id number] [place] [address] Feb, [address] [id number] Jan, Vitreous floaters of right eye H43.391 [facility] [id number] [place] [phone] Jan, [place] [address] [address] Nov, Post traumatic stress disorder (PTSD) F43.10 ; Severe episode of recurrent major depressive disorder, without psychotic features F33.2 ; Psychophysiological insomnia F51.04 and Homeless Z59.0 [facility] [address], [place] [address] Oct, Post traumatic stress disorder (PTSD) F43.10 ; Severe episode of recurrent major depressive disorder, without psychotic features F33.2 and Psychophysiological insomnia F51.04 [facility] [id number] [place] [id number] Oct, Vaginal dryness, menopausal N95.1 and Dyspareunia in female N94.10 [facility] [id number] [place] [address] [phone] Oct, [facility] [id number] [place] [address] Aug, Post traumatic stress disorder (PTSD) F43.10 ; Severe episode of recurrent major depressive disorder, without psychotic features F33.2 and Psychophysiological insomnia F51.04 [facility] [address] [id number] [id number] Aug, [facility] [id number] [place] [address] [id number] Aug, Well woman exam Z01.419 and Vaginal dryness, menopausal N95.1 [facility] [address], [place] [address] July, [facility] [id number] [place] [address] July, [facility] [address] [place] [address] July, Post traumatic stress disorder (PTSD) F43.10 ; Severe episode of recurrent major depressive disorder, without psychotic features F33.2 and Psychophysiological insomnia F51.04 [facility] [id number] [place] [id number] July, Mass of left lung R91.8 [facility] [address], [place] [address] Jun, Shortness of breath R06.02 ; Wheezing R06.2 and Mild intermittent asthma with acute exacerbation J45.21 [facility] [address]100[place], [place] [address] May, Post traumatic stress disorder (PTSD) F43.10 ; Severe episode of recurrent major depressive disorder, without psychotic features F33.2 ; Essential (primary) hypertension I10 and Psychophysiological insomnia F51.04 [facility] [id number] [place] [id number] May, 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 and Headache, unspecified headache type R51 [facility] [address] [place] [address] Apr, [facility] [id number] [place] [address] Apr, Post traumatic stress disorder (PTSD) F43.10 ; Severe episode of recurrent major depressive disorder, without psychotic features F33.2 ; Essential (primary) hypertension I10 and Psychophysiological insomnia F51.04 [facility] [address] [place] [address] Mar, Post traumatic stress disorder (PTSD) F43.10 and Severe episode of recurrent major depressive disorder, without psychotic features F33.2 [facility] [address] [place] [address] Feb, Post traumatic stress disorder (PTSD) F43.10 [facility] [address] [place] [address] Feb, Post traumatic stress disorder (PTSD) F43.10 and Severe episode of recurrent major depressive disorder, without psychotic features F33.2 [facility] [address] [phone] Feb, Anxiety, generalized F41.1 and Severe episode of recurrent major depressive disorder, without psychotic features F33.2 [facility] [address] [place] [address] Feb, Severe episode of recurrent major depressive disorder, without psychotic features F33.2 and Anxiety, generalized F41.1 [facility] [id number] [place] [address] [id number] Aug, [facility] [id number] [place] [address] [id number] May, Forgetfulness R68.89 and Bilateral low back pain without sciatica, unspecified chronicity M54.5 [facility] [id number] [place] [address] [id number] Apr, Forgetfulness R68.89 [facility] [id number] [place] [address] [id number] Jan, Irritant contact dermatitis due to other chemical products L24.5 [facility] [id number] [place] [address] [id number] Sep, Nausea vomiting and diarrhea 787.91 [facility] [id number] [place] [address] Jun, [facility] [id number] [place] [address] Jun, [facility] [id number] [place] [address] July, [facility] [id number] [place] [address] [id number] July, [facility] [id number] [place] [address] [phone] Jun, [facility] [id number] [place] [address] Jun, [facility] [id number] [place] [address] [phone] May, [facility] [id number] [place] [address] May, [facility] [id number] [place] [address] [id number] May, [facility] [address] [facility] [id number] [address] May, [facility] [place] [facility] [address] [facility] [id number] [place] [address] May, [facility] [place] [facility] [address] [facility] [id number] [place] [address] May, [facility] [address] [facility] [id number] [place] [id number] Apr, [facility] [place] [facility] [address] [facility] [id number] [place] [address] Apr, [facility] [address] [facility] [id number] [place] [id number] Apr, [facility] [address] [facility] [id number], [place] [address] Apr, [facility] [address] [id number] [phone] Apr, [facility] [address] [id number], [place] [address] Apr, [facility] [address] [facility] [id number] [place] [phone] Apr, [facility] [address] [facility] [id number], [place] [address] Apr, [facility] [address] [id number] [place] [id number] Apr, [facility] [place] [facility] [address] [facility] [id number], [place] [address] Apr, [facility] [place] [facility] [address] [facility] [id number], [place] [address] Jan, [facility] [place] [facility] [address] [facility] [id number] [place] [address] Jan, [facility] [address] [id number] [place] [id number] Dec, [facility] [address] [facility] [id number] [place] [id number] Oct, [facility] [address] [facility] [id number] [place] [phone] Sep, [facility] [address] [facility] [id number] [place] [id number] Aug, [facility] [address] [facility] [id number] [place] [id number] Aug, [facility] [address] [id number] [place] [id number] Jun, [facility] [address] [facility] [id number] [place] [phone] May, [facility] [address] [id number] [place] [id number] May, [facility] [address] [facility] [id number] [address] Apr, IMMUNIZATIONS No Known Immunizations SOCIAL HISTORY Never Assessed REASON FOR VISIT JOHAN PLAN OF CARE Activity Details Follow Up Multi Extraction with N2o 1hr Rincon Reason: VITAL SIGNS Height 64.75 in 2017-08-23 Heart Rate 60 bpm 2017-08-23 Blood pressure systolic 120 mmHg 2017-08-23 Blood pressure diastolic 80 mmHg 2017-08-23 MEDICATIONS Medication Instructions Dosage Frequency Start Date End Date Duration Status Clindamycin HCl 150 MG Orally with food every 8 hrs 2 capsules 8h 7 days Active Ibuprofen 800 MG Orally Three times a day 1 tablet 8h 23 May, 2015 Active Ventolin HFA 108 (90 Base) MCG/ACT Inhalation 4 times a day 2 puffs as needed 6h 07 Apr, 2017 Active Acetaminophen Active Trazodone HCl 100 mg Orally Once a day 1/2 tablet at bedtime 24h 30 days Active Ambien 5 mg Orally Once a day 1 tablet at bedtime 24h 30 days Active Cipro HC 0.2-1 % Otic Twice a day 3 drops into affected ear 12h July, 7 day(s) Active Premarin 0.625 MG/GM Vaginal Daily for Three Weeks, 1 Week off then every other day for 3 weeks, then twice weekly 1 gram Active RESULTS No Results PROCEDURES Procedure Date Ordered Result Body Site RE-EVALUATION - LTD PROBLEM FOCUSED August 23, 2017 INSTRUCTIONS MEDICATIONS ADMINISTERED No Known Medications [...]
--- OUTSIDE RECORDS SUMMARY | 2018-01-18 14:05 | XMS REPORT ---
Author Author KELSY QUESADA Organization [facility] Address [address] [place] [address] Care Team Providers Care Laborer Syrup Machine Name Role Phone KELSY QUESADA Unavailable PROBLEMS Type Condition ICD9-CM Code VOY19-XH Code Onset Dates Condition Status SNOMED Code Problem Post traumatic stress disorder (PTSD) F43.10 Active 83257974 Problem Psychophysiological insomnia F51.04 Active 020125120 Problem Essential (primary) hypertension I10 Active 52290443 Problem Bilateral low back pain without sciatica, unspecified chronicity M54.5 Active 681753887 Problem Forgetfulness R68.89 Active 15652917 Problem Severe episode of recurrent major depressive disorder, without psychotic features F33.2 Active 04904716 Problem Anxiety, generalized F41.1 Active 77324451 Problem Pinched nerve in neck G58.8 Active 09840971 Problem Type 2 diabetes mellitus without complication, without long-term current use of insulin E11.9 Active 668227185 Problem Vaginal dryness, menopausal N95.1 Active 83471741 Problem Mild intermittent asthma with acute exacerbation J45.21 Active 115208316 Problem Chronic nonintractable headache, unspecified headache type R51 Active 82848372 Problem Vitreous floaters of right eye H43.391 Active 45794591 ALLERGIES Substance Reaction Event Type Date Status Penicillin V Potassium anaphylaxis Drug Allergy Aug, Active tape Unknown Non Drug Allergy Aug, Active ENCOUNTERS Encounter Location Date Diagnosis [facility] [address] [facility] [id number] [address] Dec, [facility] [address] [facility] [place] [id number], [place] [address] Sep, Post traumatic stress disorder (PTSD) F43.10 ; Severe episode of recurrent major depressive disorder, without psychotic features F33.2 and Psychophysiological insomnia F51.04 [facility] [address] [id number], [place] [address] Aug, Dental examination Z01.20 [facility] [id number] [place] [address] Aug, Dental caries on smooth surface penetrating into pulp K02.63 and Encounter for dental examination Z01.20 [facility] [address] [id number], [place] [address] Aug, Dental examination Z01.20 [facility] [id number] [place] [address] Aug, [facility] [id number] [place] [id number] July, Other infective chronic otitis externa of right ear H60.391 [facility] [id number] [place] [address] July, [facility] [id number] [place] [id number] July, Other infective acute otitis externa of right ear H60.391 and Vaginal dryness, menopausal N95.1 [facility] [place] [address] [id number] [place] [phone] July, [facility] [address] [id number] [place] [id number] July, Dental examination Z01.20 [facility] [address] [id number] [place] [phone] July, [facility] [address]65[address] [address] Jun, Post traumatic stress disorder (PTSD) F43.10 ; Severe episode of recurrent major depressive disorder, without psychotic features F33.2 and Psychophysiological insomnia F51.04 [facility] [place] [id number] [place] [id number] May, Cervicalgia M54.2 [facility] [address] [place] [address] May, Pinched nerve in neck G58.8 [facility] [id number] [place] [address] Apr, Post traumatic stress disorder (PTSD) F43.10 ; Severe episode of recurrent major depressive disorder, without psychotic features F33.2 and Psychophysiological insomnia F51.04 [place] [address] [address] Apr, [facility] [id number] [place] [phone] Apr, Mild intermittent asthma with acute exacerbation J45.[address] [id number] Apr, Chronic nonintractable headache, unspecified headache type R51 [place] [id number] [place] [address] Mar, Post traumatic stress disorder (PTSD) F43.10 ; Severe episode of recurrent major depressive disorder, without psychotic features F33.2 and Psychophysiological insomnia F51.04 [place] [id number] [place] [address] Mar, Post traumatic stress disorder (PTSD) F43.10 [facility] [id number] [place] [phone] Mar, Type 2 diabetes mellitus without complication, without long-term current use of insulin E11.9 ; Bilateral low back pain without sciatica, unspecified chronicity M54.5 and Chronic nonintractable headache, unspecified headache type R51 [place] [id number] [place] [address] Feb, [address] [id number] Jan, Vitreous floaters of right eye H43.391 [facility] [id number] [place] [phone] Jan, [place] [address] [address] Nov, Post traumatic stress disorder (PTSD) F43.10 ; Severe episode of recurrent major depressive disorder, without psychotic features F33.2 ; Psychophysiological insomnia F51.04 and Homeless Z59.0 [facility] [address]65100[place], [place] [address] Oct, Post traumatic stress disorder (PTSD) F43.10 ; Severe episode of recurrent major depressive disorder, without psychotic features F33.2 and Psychophysiological insomnia F51.04 [facility] [id number] [place] [id number] Oct, Vaginal dryness, menopausal N95.1 and Dyspareunia in female N94.10 [facility] [id number] [place] [id number] Oct, [facility] [id number] [place] [address] Aug, Post traumatic stress disorder (PTSD) F43.10 ; Severe episode of recurrent major depressive disorder, without psychotic features F33.2 and Psychophysiological insomnia F51.04 [facility] [address] [id number] [id number] Aug, [facility] [id number] [place] [address] [id number] Aug, Well woman exam Z01.419 and Vaginal dryness, menopausal N95.1 [facility] [address]00565100[place], [place] [address] July, [facility] [id number] [place] [address] July, [facility] [address] [place] [address] July, Post traumatic stress disorder (PTSD) F43.10 ; Severe episode of recurrent major depressive disorder, without psychotic features F33.2 and Psychophysiological insomnia F51.04 [facility] [id number] [place] [id number] July, Mass of left lung R91.8 [facility] [address], [place] [address] Jun, Shortness of breath R06.02 ; Wheezing R06.2 and Mild intermittent asthma with acute exacerbation J45.21 [facility] [address]65100[place], [place] [address] May, Post traumatic stress disorder (PTSD) F43.10 ; Severe episode of recurrent major depressive disorder, without psychotic features F33.2 ; Essential (primary) hypertension I10 and Psychophysiological insomnia F51.04 [facility] [id number] [place] [id number] May, 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 and Headache, unspecified headache type R51 [facility] [address] [place] [address] Apr, [facility] [id number] [place] [address] Apr, Post traumatic stress disorder (PTSD) F43.10 ; Severe episode of recurrent major depressive disorder, without psychotic features F33.2 ; Essential (primary) hypertension I10 and Psychophysiological insomnia F51.04 [facility] [address] [place] [address] Mar, Post traumatic stress disorder (PTSD) F43.10 and Severe episode of recurrent major depressive disorder, without psychotic features F33.2 [facility] [address] [place] [address] Feb, Post traumatic stress disorder (PTSD) F43.10 [facility] [address] [place] [address] Feb, Post traumatic stress disorder (PTSD) F43.10 and Severe episode of recurrent major depressive disorder, without psychotic features F33.2 [facility] [address]100[place] [id number] Feb, Anxiety, generalized F41.1 and Severe episode of recurrent major depressive disorder, without psychotic features F33.2 [facility] [address] [place] [address] Feb, Severe episode of recurrent major depressive disorder, without psychotic features F33.2 and Anxiety, generalized F41.1 [facility] [id number] [place] [phone] Aug, [facility] [id number] [place] [address] [phone] May, Forgetfulness R68.89 and Bilateral low back pain without sciatica, unspecified chronicity M54.5 [facility] [id number] [place] [address] [phone] Apr, Forgetfulness R68.89 [facility] [id number] [place] [address] [phone] Jan, Irritant contact dermatitis due to other chemical products L24.5 [facility] [id number] [place] [phone] Sep, Nausea vomiting and diarrhea 787.91 [facility] [id number] [place] [address] Jun, [facility] [id number] [place] [address] Jun, [facility] [id number] [place] [address] July, [facility] [id number] [place] [id number] July, [facility] [id number] [place] [address] [phone] Jun, [facility] [id number] [place] [address] Jun, [facility] [id number] [place] [address] [phone] May, [facility] [id number] [place] [address] May, [facility] [id number] [place] [address] [phone] May, [facility] [address] [facility] [place] [id number] [address] May, [facility] [place] [facility] [address] [facility] [place] [id number] [place] [address] May, [facility] [place] [facility] [address] [facility] [place] [id number] [place] [address] May, [facility] [address] [facility] [id number] [place] [id number] Apr, [facility] [place] [facility] [address] [facility] [place] [id number] [place] [address] Apr, [facility] [address] [facility] [id number] [place] [id number] Apr, [facility] [address] [facility] [place] [id number], [place] [address] Apr, [facility] [address] [id number] [place] [id number] Apr, [facility] [address] [id number], [place] [address] Apr, [facility] [address] [facility] [id number] [place] [id number] Apr, [facility] [address] [facility] [place] [id number][place] [address] Apr, [facility] [address] [id number] [place] [id number] Apr, [facility] [place] [facility] [address] [facility] [place] [id number][place] [address] Apr, [facility] [place] [facility] [address] [facility] [place] [id number] [address]46 Jan, [facility] [place] [facility] [address] [facility] [place] [id number] [place] [address] Jan, [facility] [address] [id number] [place] [id number] Dec, [facility] [address] [facility] [id number] [place] [id number] Oct, [facility] [address] [facility] [id number] [place] [phone] Sep, [facility] [address] [facility] [id number] [place] [id number] Aug, [facility] [address] [facility] [id number] [place] [id number] Aug, [facility] [address] [id number] [place] [id number] Jun, [facility] [address] [facility] [id number] [place] [id number] May, [facility] [address] [facility] [id number] [place] [id number] May, [facility] [address] [facility] [place] [id number], [place] [address] Apr, IMMUNIZATIONS No Known Immunizations SOCIAL HISTORY Never Assessed REASON FOR VISIT pain PLAN OF CARE Activity Details Follow Up PRN Reason: VITAL SIGNS MEDICATIONS Medication Instructions Dosage Frequency Start Date End Date Duration Status Pecos 7.5-325 MG Orally every 4-6 hours as needed 1 tablet Aug, Active Ambien 5 mg Orally Once a day 1 tablet at bedtime 24h 30 days Active Ventolin HFA 108 (90 Base) MCG/ACT Inhalation 4 times a day 2 puffs as needed 6h 07 Apr, 2017 Active Acetaminophen Active Ibuprofen 800 MG Orally Three times a day 1 tablet 8h May, Active Trazodone HCl 100 mg Orally Once a day 1/2 tablet at bedtime 24h 30 days Active Clindamycin HCl 150 MG Orally with food every 8 hrs 2 capsules 8h 7 days Active Cipro HC 0.2-1 % Otic Twice a day 3 drops into affected ear 12h July, 7 day(s) Active Premarin 0.625 MG/GM Vaginal Daily for Three Weeks, 1 Week off then every other day for 3 weeks, then twice weekly 1 gram Active RESULTS No Results PROCEDURES Procedure Date Ordered Result Body Site APPLICATION DESENZT MEDICAMENT September 13, 2017 Dental no charge September 13, 2017 INSTRUCTIONS MEDICATIONS ADMINISTERED No Known Medications [...]
--- OUTSIDE RECORDS SUMMARY | 2018-01-18 14:06 | XMS REPORT ---
Author Author RC FLORES [facility] Address [address] [place] [address] Care Team Providers Care Insurance Producer Name Role Phone RC FLORES Unavailable PROBLEMS Type Condition ICD9-CM Code [id number] Code Onset Dates Condition Status SNOMED Code Problem Post traumatic stress disorder (PTSD) F43.10 Active 62519872 Problem Psychophysiological insomnia F51.04 Active 019176981 Problem Essential (primary) hypertension I10 Active 47153037 Problem Bilateral low back pain without sciatica, unspecified chronicity M54.5 Active 417527491 Problem Forgetfulness R68.89 Active 97775723 Problem Severe episode of recurrent major depressive disorder, without psychotic features F33.2 Active 12206938 Problem Anxiety, generalized F41.1 Active 93712322 Problem Pinched nerve in neck G58.8 Active 67148564 Problem Type 2 diabetes mellitus without complication, without long-term current use of insulin E11.9 Active 111061125 Problem Vaginal dryness, menopausal N95.1 Active 01222004 Problem Mild intermittent asthma with acute exacerbation J45.21 Active 875002292 Problem Chronic nonintractable headache, unspecified headache type R51 Active 92812660 Problem Vitreous floaters of right eye H43.391 Active 39119031 ALLERGIES Substance Reaction Event Type Date Status Penicillin V Potassium anaphylaxis Drug Allergy July, Active tape Unknown Non Drug Allergy July, Active ENCOUNTERS Encounter Location Date Diagnosis [facility] [address] [facility] [id number] [address] Dec, [facility] [address] [id number] [address] Sep, Post traumatic stress disorder (PTSD) F43.10 ; Severe episode of recurrent major depressive disorder, without psychotic features F33.2 and Psychophysiological insomnia F51.04 [facility] [address] [id number] [address] Aug, Dental examination Z01.20 [facility] [address] [id number] [address] Aug, Dental caries on smooth surface penetrating into pulp K02.63 and Encounter for dental examination Z01.20 [facility] [address] [id number] [place] [address] Aug, Dental examination Z01.20 [facility] [id number] [place] [address] Aug, [facility] [id number] [place] [id number] July, Other infective chronic otitis externa of right ear H60.391 [facility] [id number] [place] [address] July, [facility] [id number] [place] [id number] July, Other infective acute otitis externa of right ear H60.391 and Vaginal dryness, menopausal N95.1 [facility] [address] [id number][place] [id number] July, [facility] [address] [id number] [id number] July, Dental examination Z01.20 [facility] [place] [address] [facility] [id number] [id number] July, [facility] [address] [address] Jun, Post traumatic stress disorder (PTSD) F43.10 ; Severe episode of recurrent major depressive disorder, without psychotic features F33.2 and Psychophysiological insomnia F51.04 [facility] [place] [id number] [id number] May, Cervicalgia M54.2 [facility] [id number] [place] [address] May, Pinched nerve in neck G58.8 [facility] [id number] [place] [address] Apr, Post traumatic stress disorder (PTSD) F43.10 ; Severe episode of recurrent major depressive disorder, without psychotic features F33.2 and Psychophysiological insomnia F51.04 [place] [id number] [place] [address] Apr, [facility] [address] [id number] Apr, Mild intermittent asthma with acute exacerbation J45.[address] [id number] Apr, Chronic nonintractable headache, unspecified headache type R51 [place] [id number] [place] [address] Mar, Post traumatic stress disorder (PTSD) F43.10 ; Severe episode of recurrent major depressive disorder, without psychotic features F33.2 and Psychophysiological insomnia F51.04 [place] [id number] [place] [address] Mar, Post traumatic stress disorder (PTSD) F43.10 [facility] [id number] [place] [id number] Mar, Type 2 diabetes mellitus without complication, without long-term current use of insulin E11.9 ; Bilateral low back pain without sciatica, unspecified chronicity M54.5 and Chronic nonintractable headache, unspecified headache type R51 [place] [id number] [place] [address] Feb, [facility] [address] [id number] Jan, Vitreous floaters of right eye H43.391 [facility] [id number] [place] [address] [id number] Jan, [place] [address] [address] Nov, Post traumatic stress disorder (PTSD) F43.10 ; Severe episode of recurrent major depressive disorder, without psychotic features F33.2 ; Psychophysiological insomnia F51.04 and Homeless Z59.0 [facility] [id number] [place] [address] Oct, Post traumatic stress disorder (PTSD) F43.10 ; Severe episode of recurrent major depressive disorder, without psychotic features F33.2 and Psychophysiological insomnia F51.04 [facility] [id number] [place] [id number] Oct, Vaginal dryness, menopausal N95.1 and Dyspareunia in female N94.10 [facility] [id number] [place] [address] [id number] Oct, [place] [id number] [place] [address] Aug, Post traumatic stress disorder (PTSD) F43.10 ; Severe episode of recurrent major depressive disorder, without psychotic features F33.2 and Psychophysiological insomnia F51.04 [facility] [id number] [place] [address] [id number] Aug, [facility] [id number] [place] [address] [id number] Aug, Well woman exam Z01.419 and Vaginal dryness, menopausal N95.1 [facility] [id number] [place] [address] July, [place] [id number] [place] [address] July, [facility] [id number] [place] [address] July, Post traumatic stress disorder (PTSD) F43.10 ; Severe episode of recurrent major depressive disorder, without psychotic features F33.2 and Psychophysiological insomnia F51.04 [facility] [id number] [place] [address] [id number] July, Mass of left lung R91.8 [facility] [address]100[place] [address] Jun, Shortness of breath R06.02 ; Wheezing R06.2 and Mild intermittent asthma with acute exacerbation J45.21 [facility] [address]100[place] [address] May, Post traumatic stress disorder (PTSD) F43.10 ; Severe episode of recurrent major depressive disorder, without psychotic features F33.2 ; Essential (primary) hypertension I10 and Psychophysiological insomnia F51.04 [facility] [id number][place] [id number] May, 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 and Headache, unspecified headache type R51 [facility] [id number] [place] [address] 19997[address] Apr, [facility] [id number] [place] [address]363[address] Apr, Post traumatic stress disorder (PTSD) F43.10 ; Severe episode of recurrent major depressive disorder, without psychotic features F33.2 ; Essential (primary) hypertension I10 and Psychophysiological insomnia F51.04 [facility] [id number] [place] [address] Mar, Post traumatic stress disorder (PTSD) F43.10 and Severe episode of recurrent major depressive disorder, without psychotic features F33.2 [place] [address] [place] [address] Feb, Post traumatic stress disorder (PTSD) F43.10 [place] [address] [place] [address] Feb, Post traumatic stress disorder (PTSD) F43.10 and Severe episode of recurrent major depressive disorder, without psychotic features F33.2 [facility] [id number][place] [id number] Feb, Anxiety, generalized F41.1 and Severe episode of recurrent major depressive disorder, without psychotic features F33.2 [place] [id number] [place] [address] 55[address] Feb, Severe episode of recurrent major depressive disorder, without psychotic features F33.2 and Anxiety, generalized F41.1 [facility] [id number] [place] [address] [id number] Aug, [facility] [id number] [place] [address] [id number] May, Forgetfulness R68.89 and Bilateral low back pain without sciatica, unspecified chronicity M54.5 [facility] [place] [id number] [place] [address] [id number] Apr, Forgetfulness R68.89 [facility] [place] [address] [id number] Jan, Irritant contact dermatitis due to other chemical products L24.5 [facility] [place] [id number] [place] [address] [id number] Sep, Nausea vomiting and diarrhea 787.91 [facility] [address] [address] Jun, [facility] [address] [address] Jun, [facility] [id number] [place] [address] 2546 July, [facility] [id number] [place] [address] [id number] July, [facility] [id number] [place] [address] [id number] Jun, [facility] [id number] [place] [address] 50[address]- 4[address] Jun, [facility] [id number] [place] [address] [id number] May, [facility] [id number] [place] [address] 23260- 2546 May, [facility] [id number] [place] [address] [id number] May, [facility] [address] [facility] [id number] [address] May, [facility] [address] [facility] [id number] [place] [address] May, [facility] [address] [facility] [id number] [place] [address] May, [facility] [address] [facility] [id number][place] [id number] Apr, [facility] [address] [facility] [id number] [place] [address] Apr, [facility] [address] [facility] [id number][place] [id number] Apr, [facility] [address] [address] Apr, [facility] [id number][place] [id number] Apr, [facility] [address] [address] Apr, [facility] [address] [id number] [id number] Apr, [facility] [address] [address] Apr, [facility] [address] [id number][place] [id number] Apr, [facility] [address] [id number] [address] Apr, [facility] [address] [facility] [id number] [place] [address] Jan, [facility] [address] [facility] [id number] [place] [address] Jan, [facility] [address] [facility] [id number][place] [id number] Dec, [facility] [address] [id number][place] [id number] Oct, [facility] [address] [facility] [id number][place] [id number] Sep, [facility] [address] [id number] [id number] Aug, [facility] [address] [id number][place] [id number] Aug, [facility] [address] [id number], [place] [id number] Jun, [facility] [address] [id number][place] [id number] May, [facility] [address] [facility] [id number][place] [id number] May, [facility] [address] [facility] [id number] [address] Apr, IMMUNIZATIONS No Known Immunizations SOCIAL HISTORY Never Assessed REASON FOR VISIT Earache right ear Jose RN PLAN OF CARE Activity Details Follow Up prn Reason: VITAL SIGNS Height 64.75 in 2017-08-10 Weight 230.8 lbs 2017-08-10 Temperature 97.7 degrees Fahrenheit 2017-08-10 Heart Rate 60 bpm 2017-08-10 Respiratory Rate 18 2017-08-10 BMI 38.70 kg/m2 2017-08-10 Blood pressure systolic 130 mmHg 2017-08-10 Blood pressure diastolic 70 mmHg 2017-08-10 MEDICATIONS Medication Instructions Dosage Frequency Start Date End Date Duration Status Ambien 5 mg Orally Once a day 1 tablet at bedtime 24h 30 days Active Trazodone HCl 100 mg Orally Once a day 1/2 tablet at bedtime 24h 30 days Active Cortisporin 3.5-41775-9 Otic Three times a day 4 drops into affected ear 8h July, 7 day(s) Active Premarin 0.625 MG/GM Vaginal Daily for Three Weeks, 1 Week off then every other day for 3 weeks, then twice weekly 1 gram Active Flexeril 5 mg Orally Three times a day 1 tablet as needed 8h May, Not-Taking Ventolin HFA 108 (90 Base) MCG/ACT Inhalation 4 times a day 2 puffs as needed 6h Apr, Active Ibuprofen 800 MG Orally Three times a day 1 tablet 8h May, Active Acetaminophen Active RESULTS No Results PROCEDURES No Known [...]
--- OUTSIDE RECORDS SUMMARY | 2018-01-18 14:06 | XMS REPORT ---
Author Author RC FLORES [facility] Address [address] [place] [address] Care Team Providers Care Shank Breaker Name Role Phone RC FLORES Unavailable PROBLEMS Type Condition ICD9-CM Code UGK73-LQ Code Onset Dates Condition Status SNOMED Code Problem Post traumatic stress disorder (PTSD) F43.10 Active 87997284 Problem Psychophysiological insomnia F51.04 Active 882379706 Problem Essential (primary) hypertension I10 Active 51268242 Problem Bilateral low back pain without sciatica, unspecified chronicity M54.5 Active 041722052 Problem Forgetfulness R68.89 Active 31661033 Problem Severe episode of recurrent major depressive disorder, without psychotic features F33.2 Active 86231048 Problem Anxiety, generalized F41.1 Active 20199750 Problem Pinched nerve in neck G58.8 Active 76240634 Problem Type 2 diabetes mellitus without complication, without long-term current use of insulin E11.9 Active 425596253 Problem Vaginal dryness, menopausal N95.1 Active 38142994 Problem Mild intermittent asthma with acute exacerbation J45.21 Active 193275649 Problem Chronic nonintractable headache, unspecified headache type R51 Active 06457886 Problem Vitreous floaters of right eye H43.391 Active 41778581 ALLERGIES Substance Reaction Event Type Date Status Penicillin V Potassium anaphylaxis Drug Allergy July, Active tape Unknown Non Drug Allergy July, Active ENCOUNTERS Encounter Location Date Diagnosis [facility] [address] [facility] [id number] [address] Dec, [facility] [address] [id number] [address] Sep, Post traumatic stress disorder (PTSD) F43.10 ; Severe episode of recurrent major depressive disorder, without psychotic features F33.2 and Psychophysiological insomnia F51.04 [facility] [address] [id number], [place] [address] Aug, Dental examination Z01.20 [facility] [address] [id number], [place] [address] Aug, Dental caries on smooth surface penetrating into pulp K02.63 and Encounter for dental examination Z01.20 [facility] [address] [id number], [place] [address] Aug, Dental examination Z01.20 [facility] [address] [id number] [place] [address] Aug, [facility] [id number] [place] [id number] July, Other infective chronic otitis externa of right ear H60.391 [facility] [id number] [place] [address] July, [facility] [id number] [place] [id number] July, Other infective acute otitis externa of right ear H60.391 and Vaginal dryness, menopausal N95.1 [facility] [address] [id number] [id number] July, [facility] [address] [id number] [id number] July, Dental examination Z01.20 [facility] [address] [facility] [id number][place] [id number] July, [facility] [address]65[address] [address] Jun, Post traumatic stress disorder (PTSD) F43.10 ; Severe episode of recurrent major depressive disorder, without psychotic features F33.2 and Psychophysiological insomnia F51.04 [facility] [id number] [id number] May, Cervicalgia M54.2 [facility] [address] [place] [address] May, Pinched nerve in neck G58.8 [facility] [id number] [place] [address] Apr, Post traumatic stress disorder (PTSD) F43.10 ; Severe episode of recurrent major depressive disorder, without psychotic features F33.2 and Psychophysiological insomnia F51.04 [place] [id number] [place] [address] Apr, [facility] [address] [id number] Apr, Mild intermittent asthma with acute exacerbation J45.[address] [id number] Apr, Chronic nonintractable headache, unspecified headache type R51 [place] [id number] [place] [address] Mar, Post traumatic stress disorder (PTSD) F43.10 ; Severe episode of recurrent major depressive disorder, without psychotic features F33.2 and Psychophysiological insomnia F51.04 [place] [id number] [place] [address] Mar, Post traumatic stress disorder (PTSD) F43.10 [facility] [id number] [place] [id number] Mar, Type 2 diabetes mellitus without complication, without long-term current use of insulin E11.9 ; Bilateral low back pain without sciatica, unspecified chronicity M54.5 and Chronic nonintractable headache, unspecified headache type R51 [address] [id number] [place] [address] Feb, [facility] [address] [id number] Jan, Vitreous floaters of right eye H43.391 [facility] [id number] [place] [id number] Jan, [place] [address] Nov, Post traumatic stress disorder (PTSD) F43.10 ; Severe episode of recurrent major depressive disorder, without psychotic features F33.2 ; Psychophysiological insomnia F51.04 and Homeless Z59.0 [facility] [id number] [place] [address] Oct, Post traumatic stress disorder (PTSD) F43.10 ; Severe episode of recurrent major depressive disorder, without psychotic features F33.2 and Psychophysiological insomnia F51.04 [facility] [id number] [place] [id number] Oct, Vaginal dryness, menopausal N95.1 and Dyspareunia in female N94.10 [facility] [id number] [place] [id number] Oct, [place] [id number] [place] [address] Aug, Post traumatic stress disorder (PTSD) F43.10 ; Severe episode of recurrent major depressive disorder, without psychotic features F33.2 and Psychophysiological insomnia F51.04 [facility] [id number] [place] [id number] Aug, [facility] [id number] [place] [address] [id number] Aug, Well woman exam Z01.419 and Vaginal dryness, menopausal N95.1 [facility] [id number] [place] [address] July, [place] [id number] [place] [address] July, [facility] [id number] [place] [address] July, Post traumatic stress disorder (PTSD) F43.10 ; Severe episode of recurrent major depressive disorder, without psychotic features F33.2 and Psychophysiological insomnia F51.04 [facility] [id number] [place] [address] [id number] July, Mass of left lung R91.8 [facility] [address]65[address] [address] Jun, Shortness of breath R06.02 ; Wheezing R06.2 and Mild intermittent asthma with acute exacerbation J45.21 [facility] [address] [address] May, Post traumatic stress disorder (PTSD) F43.10 ; Severe episode of recurrent major depressive disorder, without psychotic features F33.2 ; Essential (primary) hypertension I10 and Psychophysiological insomnia F51.04 [facility] [id number][place] [id number] May, 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 and Headache, unspecified headache type R51 [facility] [id number] [place] [address] Apr, [facility] [id number] [place] [address] Apr, Post traumatic stress disorder (PTSD) F43.10 ; Severe episode of recurrent major depressive disorder, without psychotic features F33.2 ; Essential (primary) hypertension I10 and Psychophysiological insomnia F51.04 [facility] [id number] [place] [address] Mar, Post traumatic stress disorder (PTSD) F43.10 and Severe episode of recurrent major depressive disorder, without psychotic features F33.2 [place] [address] [place] [address] Feb, Post traumatic stress disorder (PTSD) F43.10 [place] [address] [place] [address] Feb, Post traumatic stress disorder (PTSD) F43.10 and Severe episode of recurrent major depressive disorder, without psychotic features F33.2 [facility] [id number][place] [id number] Feb, Anxiety, generalized F41.1 and Severe episode of recurrent major depressive disorder, without psychotic features F33.2 [place] [id number] [place] [address] Feb, Severe episode of recurrent major depressive disorder, without psychotic features F33.2 and Anxiety, generalized F41.1 [facility] [id number] [place] [address] [id number] Aug, [facility] [id number] [place] [address] [id number] May, Forgetfulness R68.89 and Bilateral low back pain without sciatica, unspecified chronicity M54.5 [facility] [place] [id number] [place] [address] [id number] Apr, Forgetfulness R68.89 [facility] [address] [id number] Jan, Irritant contact dermatitis due to other chemical products L24.5 [facility] [id number] [place] [address] [id number] Sep, Nausea vomiting and diarrhea 787.91 [facility] [address] [address] Jun, [facility] [address] [address] Jun, [facility] [id number] [place] [address] July, [facility] [id number] [place] [address] [id number] July, [facility] [id number] [place] [address] [id number] Jun, [facility] [id number] [place] [address] Jun, [facility] [id number] [place] [address] [id number] May, [facility] [id number] [place] [address] May, [facility] [id number] [place] [address] [id number] May, [facility] [address] [facility] [id number] [address] May, [facility] [address] [facility] [id number] [place] [address] May, [facility] [address] [facility] [id number] [place] [address] May, [facility] [address] [facility] [id number][place] [id number] Apr, [facility] [address] [facility] [id number] [place] [address] Apr, [facility] [address] [facility] [id number][place] [id number] Apr, [facility] [address] [address] Apr, [facility] [id number][place] [id number] Apr, [facility] [address] [address] Apr, [facility] [address] [id number] [id number] Apr, [facility] [address] [address] Apr, [facility] [address] [id number][place] [id number] Apr, [facility] [address] [id number] [address] Apr, [facility] [address] [facility] [id number] [place] [address] Jan, [facility] [address] [facility] [id number] [address] Jan, [facility] [address] [facility] [id number][place] [id number] Dec, [facility] [address] [id number][place] [id number] Oct, [facility] [address] [facility] [id number][place] [id number] Sep, [facility] [address] [id number][place] [id number] Aug, [facility] [address] [id number][place] [id number] Aug, [facility] [address] [id number][place] [id number] Jun, [facility] [address] [id number][place] [id number] May, [place] [address] [id number], [place] [id number] May, [facility] [address] [facility] [id number] [address] Apr, IMMUNIZATIONS No Known Immunizations SOCIAL HISTORY Never Assessed REASON FOR VISIT ear ache on right side--used all the drops and the itching is better but still has pain---jennifer RN PLAN OF CARE Activity Details Follow Up 2 Weeks Reason:oe VITAL SIGNS Height 64.75 in 2017-08-17 Weight 229.6 lbs 2017-08-17 Temperature 97.9 degrees Fahrenheit 2017-08-17 Heart Rate 60 bpm 2017-08-17 Respiratory Rate 16 2017-08-17 BMI 38.50 kg/m2 2017-08-17 Blood pressure systolic 122 mmHg 2017-08-17 Blood pressure diastolic 76 mmHg 2017-08-17 MEDICATIONS Medication Instructions Dosage Frequency Start Date End Date Duration Status Ambien 5 mg Orally Once a day 1 tablet at bedtime 24h 30 days Active Trazodone HCl 100 mg Orally Once a day 1/2 tablet at bedtime 24h 30 days Active Cipro HC 0.2-1 % Otic Twice a day 3 drops into affected ear 12h July, 7 day(s) Active Ventolin HFA 108 (90 Base) MCG/ACT Inhalation 4 times a day 2 puffs as needed 6h 07 Apr, 2017 Active Ibuprofen 800 MG Orally Three times a day 1 tablet 8h 23 May, 2015 Active Premarin 0.625 MG/GM Vaginal Daily for Three Weeks, 1 Week off then every other day for 3 weeks, then twice weekly 1 gram Active Acetaminophen Active RESULTS No Results PROCEDURES [...]
--- OUTSIDE RECORDS SUMMARY | 2018-01-18 14:06 | XMS REPORT ---
Author Author RAÚL CARLSON Organization [facility] Address [address] [place] [address] Care Team Providers Care Keeper Helper Name Role Phone RAÚL CARLSON Unavailable PROBLEMS Type Condition ICD9-CM Code [id number] Code Onset Dates Condition Status SNOMED Code Problem Post traumatic stress disorder (PTSD) F43.10 Active 66045513 Problem Psychophysiological insomnia F51.04 Active 223222523 Problem Essential (primary) hypertension I10 Active 63638994 Problem Bilateral low back pain without sciatica, unspecified chronicity M54.5 Active 126457404 Problem Forgetfulness R68.89 Active 59454557 Problem Severe episode of recurrent major depressive disorder, without psychotic features F33.2 Active 08080087 Problem Anxiety, generalized F41.1 Active 42146571 Problem Pinched nerve in neck G58.8 Active 32264544 Problem Type 2 diabetes mellitus without complication, without long-term current use of insulin E11.9 Active 939181264 Problem Vaginal dryness, menopausal N95.1 Active 75528160 Problem Mild intermittent asthma with acute exacerbation J45.21 Active 203300448 Problem Chronic nonintractable headache, unspecified headache type R51 Active 92109385 Problem Vitreous floaters of right eye H43.391 Active 29909127 ALLERGIES No Information ENCOUNTERS Encounter Location Date Diagnosis [facility] [address] [facility] [id number] [address] Dec, [facility] [address] [address] 11 Sep, 2017 Post traumatic stress disorder (PTSD) F43.10 ; Severe episode of recurrent major depressive disorder, without psychotic features F33.2 and Psychophysiological insomnia F51.04 [facility] [address] [id number], [place] [address] 25 Robel, 2018 Dental examination Z01.20 [facility] [address] [id number], [place] [address] Aug, Dental caries on smooth surface penetrating into pulp K02.63 and Encounter for dental examination Z01.20 [facility] [address] [id number], [place] [address] Aug, Dental examination Z01.20 [facility] [address] [id number], [place] [address] Aug, [facility] [id number] [place] [address] [id number] July, Other infective chronic otitis externa of right ear H60.391 [facility] [address] [id number], [place] [address] July, [facility] [id number] [place] [address] [id number] July, Other infective acute otitis externa of right ear H60.391 and Vaginal dryness, menopausal N95.1 [facility] [address] [id number] [place] [id number] July, [facility] [address] [address] [id number] [place] [id number] July, Dental examination Z01.20 [facility] [address] [facility] [address] [id number] [place] [id number] July, [facility] [id number] [place] [address] Jun, Post traumatic stress disorder (PTSD) F43.10 ; Severe episode of recurrent major depressive disorder, without psychotic features F33.2 and Psychophysiological insomnia F51.04 [facility] [id number] [place] [address] [id number] May, Cervicalgia M54.2 [facility] [id number] [place] [address] May, Pinched nerve in neck G58.8 [place] [id number] [place] [address] Apr, Post traumatic stress disorder (PTSD) F43.10 ; Severe episode of recurrent major depressive disorder, without psychotic features F33.2 and Psychophysiological insomnia F51.04 [place] [id number] [place] [address] Apr, [id number] [place] [address] [id number] Apr, 2017 Mild intermittent asthma with acute exacerbation J45.21 [address] [place] [id number] [place] [address] [id number] Apr, Chronic nonintractable headache, unspecified headache type R51 [place] [id number] [place] [address] 9785 Mar, Post traumatic stress disorder (PTSD) F43.10 ; Severe episode of recurrent major depressive disorder, without psychotic features F33.2 and Psychophysiological insomnia F51.04 [place] [id number] [place] [address] 65619- 1195 Mar, Post traumatic stress disorder (PTSD) F43.10 [address] [id number] [place] [address] [id number] Mar, Type 2 diabetes mellitus without complication, without long-term current use of insulin E11.9 ; Bilateral low back pain without sciatica, unspecified chronicity M54.5 and Chronic nonintractable headache, unspecified headache type R51 [place] [id number] [place] [address] 6[address] Feb, [address] [id number] [place] [address] [id number] Jan, Vitreous floaters of right eye H43.391 [address] [place] [id number] [place] [address] [id number] Jan, [place] [id number] [place] [address]30[address] 49[address] Nov, Post traumatic stress disorder (PTSD) F43.10 ; Severe episode of recurrent major depressive disorder, without psychotic features F33.2 ; Psychophysiological insomnia F51.04 and Homeless Z59.0 [facility] [address] [address] Oct, Post traumatic stress disorder (PTSD) F43.10 ; Severe episode of recurrent major depressive disorder, without psychotic features F33.2 and Psychophysiological insomnia F51.04 [facility] [id number] [place] [address] [id number] Oct, Vaginal dryness, menopausal N95.1 and Dyspareunia in female N94.10 [facility] [address] [id number] Oct, [facility] [id number] [place] [address] Aug, Post traumatic stress disorder (PTSD) F43.10 ; Severe episode of recurrent major depressive disorder, without psychotic features F33.2 and Psychophysiological insomnia F51.04 [facility] [id number] [place] [address] [id number] Aug, [facility] [id number] [place] [address] [id number] Aug, Well woman exam Z01.419 and Vaginal dryness, menopausal N95.1 [facility] [id number] [place] [address] 79594[address] 69[address] July, [facility] [id number] [place] [address] 49[address] July, [facility] [id number] [place] [address] July, Post traumatic stress disorder (PTSD) F43.10 ; Severe episode of recurrent major depressive disorder, without psychotic features F33.2 and Psychophysiological insomnia F51.04 [facility] [id number] [place] [address] [id number] July, Mass of left lung R91.8 [facility] [id number] [place] [address] Jun, Shortness of breath R06.02 ; Wheezing R06.2 and Mild intermittent asthma with acute exacerbation J45.21 [place] [id number] [place] [address] 40463- 9312 May, Post traumatic stress disorder (PTSD) F43.10 ; Severe episode of recurrent major depressive disorder, without psychotic features F33.2 ; Essential (primary) hypertension I10 and Psychophysiological insomnia F51.04 [facility] [id number] [id number] May, 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 and Headache, unspecified headache type R51 [place] [id number] [place] [address] 19429[address] 9120 Apr, [place] [id number] [place] [address] 59518- 5147 Apr, Post traumatic stress disorder (PTSD) F43.10 ; Severe episode of recurrent major depressive disorder, without psychotic features F33.2 ; Essential (primary) hypertension I10 and Psychophysiological insomnia F51.04 [place] [address] [place] [address] 50352- 2185 Mar, Post traumatic stress disorder (PTSD) F43.10 and Severe episode of recurrent major depressive disorder, without psychotic features F33.2 [place] [address] [place] [address] 39593- 0128 Feb, Post traumatic stress disorder (PTSD) F43.10 [place] [id number] [place] [address] 85989- 0[address] Feb, Post traumatic stress disorder (PTSD) F43.10 and Severe episode of recurrent major depressive disorder, without psychotic features F33.2 [facility] [address] [id number] Feb, Anxiety, generalized F41.1 and Severe episode of recurrent major depressive disorder, without psychotic features F33.2 [place] [id number] [place] [address] 52369- 3608 Feb, Severe episode of recurrent major depressive disorder, without psychotic features F33.2 and Anxiety, generalized F41.1 [facility] [place] [id number] [place] [address] [id number] Aug, [facility] [place] [id number] [place] [address] [id number] May, Forgetfulness R68.89 and Bilateral low back pain without sciatica, unspecified chronicity M54.5 [facility] [place] [id number] [place] [address] [id number] Apr, Forgetfulness R68.89 [facility] [place] [id number] [place] [address] [id number] Jan, Irritant contact dermatitis due to other chemical products L24.5 [facility] [place] [id number] [place] [address] [id number] Sep, Nausea vomiting and diarrhea 787.91 [facility] [place] [address] [address] Jun, [facility] [id number] [place] [address] 34300- 8172 Jun, [facility] [address] [address] July, [facility] [place] [id number] [place] [address] [id number] July, [facility] [place] [id number] [place] [address] [id number] Jun, [facility] [id number] [place] [address] 07836- 4741 Jun, [facility] [place] [id number] [place] [address] [id number] May, [facility] [place] [id number] [place] [address] 85951- 5656 May, [facility] [place] [id number] [place] [address] [id number] May, [facility] [address] [id number]- 1166 May, [facility] [address] [facility] [id number], [place] [address] May, [facility] [address] [facility] [id number], [place] [address] May, [facility] [address] [id number] [place] [id number] Apr, [facility] [address] [facility] [id number], [place] [address] Apr, [facility] [address] [id number] [id number] Apr, [facility] [address] [facility] [id number], [place] [address] Apr, [facility] [address] [id number] [id number] Apr, [facility] [address] [facility] [id number], [place] [address] Apr, [facility] [address] [id number] [id number] Apr, [facility] [address] [facility] [id number], [place] [address] Apr, [facility] [address] [facility] [id number] [id number] Apr, [facility] [address] [facility] [id number], [place] [address] Apr, [facility] [address] [facility] [id number], [place] [address] Jan, [facility] [address] [facility] [id number], [place] [address] Jan, [facility] [address] [id number] [id number] Dec, [facility] [address] [id number] [id number] Oct, [facility] [address] [id number][place] [id number] Sep, [id number] [id number] Aug, [id number] [id number] Aug, [id number] [id number] Jun, [address] [id number] [id number] May, [address] [id number] [id number] May, [facility] [address] [facility] [id number] [address] Apr, IMMUNIZATIONS No Known Immunizations SOCIAL HISTORY Never Assessed REASON FOR VISIT APPOINTMENT PLAN OF CARE VITAL SIGNS MEDICATIONS Unknown [...]
--- OUTSIDE RECORDS SUMMARY | 2018-01-18 14:06 | XMS REPORT ---
Author Author GEORGES YAEL [facility] Address [address] [place] [address] Care Team Providers Care Price Changer Name Role Phone YAEL GEORGES Unavailable PROBLEMS Type Condition ICD9-CM Code KUL75-IX Code Onset Dates Condition Status SNOMED Code Problem Post traumatic stress disorder (PTSD) F43.10 Active 83583491 Problem Psychophysiological insomnia F51.04 Active 151175035 Problem Essential (primary) hypertension I10 Active 82417356 Problem Bilateral low back pain without sciatica, unspecified chronicity M54.5 Active 913623727 Problem Forgetfulness R68.89 Active 89061789 Problem Severe episode of recurrent major depressive disorder, without psychotic features F33.2 Active 79106417 Problem Anxiety, generalized F41.1 Active 39134766 Problem Pinched nerve in neck G58.8 Active 61425212 Problem Type 2 diabetes mellitus without complication, without long-term current use of insulin E11.9 Active 682987381 Problem Vaginal dryness, menopausal N95.1 Active 88764701 Problem Mild intermittent asthma with acute exacerbation J45.21 Active 579998756 Problem Chronic nonintractable headache, unspecified headache type R51 Active 55586926 Problem Vitreous floaters of right eye H43.391 Active 17600986 ALLERGIES Substance Reaction Event Type Date Status Penicillin V Potassium anaphylaxis Drug Allergy July, Active tape Unknown Non Drug Allergy July, Active ENCOUNTERS Encounter Location Date Diagnosis [facility] [address] [id number] [address] Dec, [facility] [address] [id number] [place] [address] Sep, Post traumatic stress disorder (PTSD) F43.10 ; Severe episode of recurrent major depressive disorder, without psychotic features F33.2 and Psychophysiological insomnia F51.04 [facility] [address] [id number], [place] [address] Aug, Dental examination Z01.20 [facility] [id number] [place] [phone] Aug, Dental caries on smooth surface penetrating into pulp K02.63 and Encounter for dental examination Z01.20 [facility] [address] [id number], [place] [address] Aug, Dental examination Z01.20 [facility] [id number] [place] [address] Aug, [facility] [place] [address] [id number] [place] [id number] July, Other infective chronic otitis externa of right ear H60.391 [facility] [id number] [place] [address] July, [facility] [place] [id number] [place] [id number] July, Other infective acute otitis externa of right ear H60.391 and Vaginal dryness, menopausal N95.1 [facility] [place] [address] [facility] [address] [id number] [id number] July, [facility] [address] [id number][place] [id number] July, Dental examination Z01.20 [facility] [address] [id number] [id number] July, [facility] [address] [address] Jun, Post traumatic stress disorder (PTSD) F43.10 ; Severe episode of recurrent major depressive disorder, without psychotic features F33.2 and Psychophysiological insomnia F51.04 [facility] [place] [id number] [id number] May, Cervicalgia M54.2 [facility] [address] [address] May, Pinched nerve in neck G58.8 [facility] [id number] [place] [address] Apr, Post traumatic stress disorder (PTSD) F43.10 ; Severe episode of recurrent major depressive disorder, without psychotic features F33.2 and Psychophysiological insomnia F51.04 [place] [address] [address] Apr, [facility] [id number] [place] [id number] Apr, Mild intermittent asthma with acute exacerbation J45.[address] [id number] Apr, Chronic nonintractable headache, unspecified headache type R51 [place] [address] [address] Mar, Post traumatic stress disorder (PTSD) F43.10 ; Severe episode of recurrent major depressive disorder, without psychotic features F33.2 and Psychophysiological insomnia F51.04 [place] [id number] [place] [address] Mar, Post traumatic stress disorder (PTSD) F43.10 [place] [id number] [place] [id number] Mar, Type 2 diabetes mellitus without complication, without long-term current use of insulin E11.9 ; Bilateral low back pain without sciatica, unspecified chronicity M54.5 and Chronic nonintractable headache, unspecified headache type R51 [place] [id number] [place] [address] Feb, [address] [id number] Jan, Vitreous floaters of right eye H43.391 [place] [id number] [place] [id number] Jan, [place] [address] [address] Nov, Post traumatic stress disorder (PTSD) F43.10 ; Severe episode of recurrent major depressive disorder, without psychotic features F33.2 ; Psychophysiological insomnia F51.04 and Homeless Z59.0 [facility] [address] [address] Oct, Post traumatic stress disorder (PTSD) F43.10 ; Severe episode of recurrent major depressive disorder, without psychotic features F33.2 and Psychophysiological insomnia F51.04 [facility] [id number] [place] [id number] Oct, Vaginal dryness, menopausal N95.1 and Dyspareunia in female N94.10 [facility] [id number] [place] [id number] Oct, [place] [address] [address] [id number] [place] [address] Aug, Post traumatic stress disorder (PTSD) F43.10 ; Severe episode of recurrent major depressive disorder, without psychotic features F33.2 and Psychophysiological insomnia F51.04 [facility] [id number] [place] [address] [id number] Aug, [facility] [id number] [place] [id number] Aug, Well woman exam Z01.419 and Vaginal dryness, menopausal N95.1 [facility] [id number] [place] [address] July, [facility] [id number] [place] [address] July, [facility] [id number] [place] [address] July, Post traumatic stress disorder (PTSD) F43.10 ; Severe episode of recurrent major depressive disorder, without psychotic features F33.2 and Psychophysiological insomnia F51.04 [facility] [id number] [place] [id number] July, Mass of left lung R91.8 [facility] [address] [address] Jun, Shortness of breath R06.02 ; Wheezing R06.2 and Mild intermittent asthma with acute exacerbation J45.21 [facility] [address] [address] May, Post traumatic stress disorder (PTSD) F43.10 ; Severe episode of recurrent major depressive disorder, without psychotic features F33.2 ; Essential (primary) hypertension I10 and Psychophysiological insomnia F51.04 [facility] [id number] [id number] May, 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 and Headache, unspecified headache type R51 [facility] [id number] [place] [address] Apr, [facility] [id number] [place] [address] Apr, Post traumatic stress disorder (PTSD) F43.10 ; Severe episode of recurrent major depressive disorder, without psychotic features F33.2 ; Essential (primary) hypertension I10 and Psychophysiological insomnia F51.04 [facility] [id number] [place] [address] Mar, Post traumatic stress disorder (PTSD) F43.10 and Severe episode of recurrent major depressive disorder, without psychotic features F33.2 [facility] [address] [address] Feb, Post traumatic stress disorder (PTSD) F43.10 [facility] [id number] [place] [address] Feb, Post traumatic stress disorder (PTSD) F43.10 and Severe episode of recurrent major depressive disorder, without psychotic features F33.2 [facility] [address] [id number] Feb, Anxiety, generalized F41.1 and Severe episode of recurrent major depressive disorder, without psychotic features F33.2 [place] [id number] [place] [address] Feb, Severe episode of recurrent major depressive disorder, without psychotic features F33.2 and Anxiety, generalized F41.1 [facility] [place] [id number] [place] [address] [id number] Aug, [facility] [place] [id number] [place] [address] [id number] May, Forgetfulness R68.89 and Bilateral low back pain without sciatica, unspecified chronicity M54.5 [facility] [place] [id number] [place] [address] [id number] Apr, Forgetfulness R68.89 [facility] [place] [address] [id number] Jan, Irritant contact dermatitis due to other chemical products L24.5 [facility] [place] [id number] [place] [address] [id number] Sep, Nausea vomiting and diarrhea 787.91 [facility] [id number] [place] [address] Jun, [facility] [id number] [place] [address] Jun, [facility] [id number] [place] [address] July, [facility] [place] [id number] [place] [address] [id number] July, [facility] [place] [id number] [place] [address] [id number] Jun, [facility] [id number] [place] [address] Jun, [facility] [place] [id number] [place] [address] [id number] May, [facility] [id number] [place] [address] May, [facility] [place] [id number] [place] [id number] May, [facility] [address] [facility] [id number] [place] [address] May, [facility] [place] [facility] [address] [facility] [id number] [place] [address] May, [facility] [place] [facility] [address] [facility] [id number] [place] [address] May, [facility] [place] [address] [facility] [id number] [place] [id number] Apr, [facility] [place] [facility] [address] [facility] [id number] [place] [address] Apr, [facility] [place] [address] [facility] [id number] [place] [id number] Apr, [facility] [id number] [place] [address] Apr, [facility] [place] [address] [place] [address] [id number] [id number] Apr, [facility] [id number] [address] Apr, [facility] [place] [address] [facility] [id number][place] [id number] Apr, [facility] [id number] [address] Apr, [facility] [place] [address] [place] [address] [id number] [id number] Apr, [facility] [place] [facility] [address] [facility] [id number] [place] [address] Apr, [facility] [place] [facility] [address] [facility] [id number] [place] [address] Jan, [facility] [place] [facility] [address] [facility] [id number] [place] [address] Jan, [facility] [place] [address] [facility] [id number][place] [id number] Dec, [facility] [place] [address] [facility] [id number][place] [id number] Oct, [facility] [address] [facility] [id number][place] [id number] Sep, [facility] [address] [facility] [id number][place] [id number] Aug, [facility] [address] [facility] [id number][place] [id number] Aug, [facility] [address] [facility] [id number][place] [id number] Jun, [facility] [address] [facility] [id number][place] [id number] May, [facility] [address] [facility] [id number][place] [id number] May, [facility] [address] [facility] [id number] [place] [address] Apr, IMMUNIZATIONS No Known Immunizations SOCIAL HISTORY Never Assessed REASON FOR VISIT truman/prophy PLAN OF CARE Activity Details Follow Up PRN Reason: VITAL SIGNS Blood pressure systolic 138 mmHg 2017-07-28 Blood pressure diastolic 82 mmHg 2017-07-28 MEDICATIONS Medication Instructions Dosage Frequency Start Date End Date Duration Status Premarin 0.625 MG/GM Vaginal Daily for Three Weeks, 1 Week off then every other day for 3 weeks, then twice weekly 1 gram Active Ventolin HFA 108 (90 Base) MCG/ACT Inhalation 4 times a day 2 puffs as needed 6h Apr, Active Ibuprofen 800 MG Orally Three times a day 1 tablet 8h May, Active ProAir HFA 108 (90 Base) MCG/ACT INHALE 2 PUFFS BY MOUTH EVERY 4 HOURS NEEDED 16 Active Flexeril 5 mg Orally Three times a day 1 tablet as needed 8h May, Active Ambien 5 mg Orally Once a day 1 tablet at bedtime 24h 30 days Active Acetaminophen Active Pristiq 50 MG Orally Once a day 1 tablet 24h 30 days Not-Taking Trazodone HCl 100 mg Orally Once a day 1/2 tablet at bedtime 24h 30 days Active RESULTS No Results PROCEDURES Procedure Date Ordered Result Body Site COMP ORAL EVALUATION - NEW/EST PT July 28, 2017 INTRAORL - CMPL SERIES CODE 39802 July 28, 2017 INSTRUCTIONS MEDICATIONS ADMINISTERED No Known Medications [...]
--- OUTSIDE RECORDS SUMMARY | 2018-01-18 14:07 | XMS REPORT ---
Author Author RC FLOR[facility] Address [address] [place] [address] Care Team Providers Care Billing Auditor Name Role Phone RC FLORES Unavailable PROBLEMS Type Condition ICD9-CM Code [id number] Code Onset Dates Condition Status SNOMED Code Problem Post traumatic stress disorder (PTSD) F43.10 Active 61556209 Problem Psychophysiological insomnia F51.04 Active 828527303 Problem Essential (primary) hypertension I10 Active 92747516 Problem Bilateral low back pain without sciatica, unspecified chronicity M54.5 Active 788260524 Problem Forgetfulness R68.89 Active 75712343 Problem Severe episode of recurrent major depressive disorder, without psychotic features F33.2 Active 86902287 Problem Anxiety, generalized F41.1 Active 50571314 Problem Pinched nerve in neck G58.8 Active 63822510 Problem Type 2 diabetes mellitus without complication, without long-term current use of insulin E11.9 Active 077770453 Problem Vaginal dryness, menopausal N95.1 Active 91537303 Problem Mild intermittent asthma with acute exacerbation J45.21 Active 418988639 Problem Chronic nonintractable headache, unspecified headache type R51 Active 86446340 Problem Vitreous floaters of right eye H43.391 Active 69208286 ALLERGIES No Information ENCOUNTERS Encounter Location Date Diagnosis [facility] [address] [facility] [id number] [address] Dec, [facility] [address] [facility] [id number] [place] [address] 11 Sep, 2017 Post traumatic stress disorder (PTSD) F43.10 ; Severe episode of recurrent major depressive disorder, without psychotic features F33.2 and Psychophysiological insomnia F51.04 [facility] [address] [id number], [place] [address] Aug, Dental examination Z01.20 [facility] [address] [id number], [place] [address] Aug, Dental caries on smooth surface penetrating into pulp K02.63 and Encounter for dental examination Z01.20 [facility] [address] [id number], [place] [address] Aug, Dental examination Z01.20 [facility] [address] [id number], [place] [address] Aug, [facility] [id number] [place] [id number] July, Other infective chronic otitis externa of right ear H60.391 [facility] [address] [id number], [place] [address] July, [facility] [id number] [place] [address] [phone] July, Other infective acute otitis externa of right ear H60.391 and Vaginal dryness, menopausal N95.1 [facility] [address] [id number] [id number] July, [facility] [address] [id number] [id number] July, Dental examination Z01.20 [facility] [address] [id number] [place] [id number] July, [facility] [address]65[address] [address] Jun, Post traumatic stress disorder (PTSD) F43.10 ; Severe episode of recurrent major depressive disorder, without psychotic features F33.2 and Psychophysiological insomnia F51.04 [facility] [id number] [place] [id number] May, Cervicalgia M54.2 [facility] [address]65[address] [address] May, Pinched nerve in neck G58.8 [facility] [id number] [place] [address] Apr, Post traumatic stress disorder (PTSD) F43.10 ; Severe episode of recurrent major depressive disorder, without psychotic features F33.2 and Psychophysiological insomnia F51.04 [facility] [id number] [place] [address] Apr, [facility] [id number] [place] [address] [phone] Apr, Mild intermittent asthma with acute exacerbation J45.21 [facility] [id number] [place] [address] [phone] Apr, Chronic nonintractable headache, unspecified headache type R51 [place] [id number] [place] [address] Mar, Post traumatic stress disorder (PTSD) F43.10 ; Severe episode of recurrent major depressive disorder, without psychotic features F33.2 and Psychophysiological insomnia F51.04 [place] [id number] [place] [address] Mar, Post traumatic stress disorder (PTSD) F43.10 [id number] [place] [address] [id number] Mar, Type 2 diabetes mellitus without complication, without long-term current use of insulin E11.9 ; Bilateral low back pain without sciatica, unspecified chronicity M54.5 and Chronic nonintractable headache, unspecified headache type R51 [place] [address] [place] [address] Feb, [place] [id number] [place] [address] [phone] Jan, Vitreous floaters of right eye H43.391 [place] [id number] [place] [address] [id number] Jan, [place] [id number] [place] [address] Nov, Post traumatic stress disorder (PTSD) F43.10 ; Severe episode of recurrent major depressive disorder, without psychotic features F33.2 ; Psychophysiological insomnia F51.04 and Homeless Z59.0 [facility] [id number] [place] [address] Oct, Post traumatic stress disorder (PTSD) F43.10 ; Severe episode of recurrent major depressive disorder, without psychotic features F33.2 and Psychophysiological insomnia F51.04 [facility] [id number] [place] [address] [phone] Oct, Vaginal dryness, menopausal N95.1 and Dyspareunia in female N94.10 [facility] [id number] [place] [address] [id number] Oct, [place] [address] [address] Aug, Post traumatic stress disorder (PTSD) F43.10 ; Severe episode of recurrent major depressive disorder, without psychotic features F33.2 and Psychophysiological insomnia F51.04 [facility] [id number] [place] [address] [id number] Aug, [facility] [id number] [place] [address] [id number] Aug, Well woman exam Z01.419 and Vaginal dryness, menopausal N95.1 [facility] [id number] [place] [address] July, [facility] [id number] [place] [address] July, [facility] [address] [address] July, Post traumatic stress disorder (PTSD) F43.10 ; Severe episode of recurrent major depressive disorder, without psychotic features F33.2 and Psychophysiological insomnia F51.04 [facility] [id number] [place] [address] [id number] July, Mass of left lung R91.8 [facility] [id number] [place] [address] Jun, Shortness of breath R06.02 ; Wheezing R06.2 and Mild intermittent asthma with acute exacerbation J45.21 [facility] [address] [address] May, Post traumatic stress disorder (PTSD) F43.10 ; Severe episode of recurrent major depressive disorder, without psychotic features F33.2 ; Essential (primary) hypertension I10 and Psychophysiological insomnia F51.04 [facility] [id number] [id number] May, 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 and Headache, unspecified headache type R51 [facility] [id number] [place] [address] Apr, [place] [id number] [place] [address] Apr, Post traumatic stress disorder (PTSD) F43.10 ; Severe episode of recurrent major depressive disorder, without psychotic features F33.2 ; Essential (primary) hypertension I10 and Psychophysiological insomnia F51.04 [place] [address] [place] [address]33[address] Mar, Post traumatic stress disorder (PTSD) F43.10 and Severe episode of recurrent major depressive disorder, without psychotic features F33.2 [place] [address] [place] [address] Feb, Post traumatic stress disorder (PTSD) F43.10 [place] [address] [place] [address] Feb, Post traumatic stress disorder (PTSD) F43.10 and Severe episode of recurrent major depressive disorder, without psychotic features F33.2 [facility] [id number][place] [id number] Feb, Anxiety, generalized F41.1 and Severe episode of recurrent major depressive disorder, without psychotic features F33.2 [facility] [address] [address] Feb, Severe episode of recurrent major depressive disorder, without psychotic features F33.2 and Anxiety, generalized F41.1 [facility] [id number] [place] [address] [id number] Aug, [facility] [id number] [place] [address] [phone] May, Forgetfulness R68.89 and Bilateral low back pain without sciatica, unspecified chronicity M54.5 [facility] [id number] [place] [address] [id number] Apr, Forgetfulness R68.89 [facility] [id number] [place] [address] [id number] Jan, Irritant contact dermatitis due to other chemical products L24.5 [facility] [id number] [place] [address] [phone] Sep, Nausea vomiting and diarrhea 787.91 [facility] [id number] [place] [address]22- [address] Jun, [facility] [id number] [place] [address] 47899- 00[address] Jun, [facility] [id number] [place] [address] 71409- 74[address] July, [facility] [id number] [place] [address] [id number] July, [facility] [id number] [place] [address] [phone] Jun, [facility] [id number] [place] [address] 79706- 28[address] Jun, [facility] [id number] [place] [address] [id number] May, [facility] [id number] [place] [address]45- [address]0 May, [facility] [id number] [place] [address] [id number] May, [facility] [id number] [place] [address] 02132- 15[address] May, [facility] [address] [id number] [place] [address] May, [facility] [address] [facility] [id number] [place] [address] May, [facility] [address] [id number][place] [id number] Apr, [facility] [address] [facility] [id number] [place] [address] Apr, [facility] [address] [id number][place] [id number] Apr, [facility] [address] [facility] [id number] [place] [address] Apr, [facility] [address] [id number], [place] [id number] Apr, [facility] [address] [address] Apr, [facility] [address] [id number][place] [phone] Apr, [facility] [address] [facility] [id number] [place] [address] Apr, [facility] [address] [id number][place] [id number] Apr, [facility] [address] [id number] [address] Apr, [facility] [address] [facility] [id number] [place] [address] Jan, [facility] [address] [facility] [id number] [place] [address] Jan, [facility] [address] [id number], [place] [id number] Dec, [facility] [address] [id number][place] [id number] Oct, [facility] [address] [id number] [place] [id number] Sep, [id number] [id number] Aug, [id number] [id number] Aug, [id number] [id number] Jun, [address] [id number] [id number] May, [place] [id number] [id number] May, [facility] [address] [id number] [address] Apr, IMMUNIZATIONS No Known Immunizations SOCIAL HISTORY Never Assessed REASON FOR VISIT Requests return call PLAN OF CARE VITAL SIGNS MEDICATIONS Unknown [...]
--- OUTSIDE RECORDS SUMMARY | 2018-01-18 14:07 | XMS REPORT ---
Author Author RC FLORES [facility] Address [address] [place] [address] Care Team Providers [employer]ist[employer] Name Role Phone RC FLORES Unavailable PROBLEMS Type Condition ICD9-CM Code XSP20-RJ Code Onset Dates Condition Status SNOMED Code Problem Post traumatic stress disorder (PTSD) F43.10 Active 49549020 Problem Psychophysiological insomnia F51.04 Active 233700030 Problem Essential (primary) hypertension I10 Active 27593754 Problem Bilateral low back pain without sciatica, unspecified chronicity M54.5 Active 142804738 Problem Forgetfulness R68.89 Active 79853282 Problem Severe episode of recurrent major depressive disorder, without psychotic features F33.2 Active 54716672 Problem Anxiety, generalized F41.1 Active 66791374 Problem Pinched nerve in neck G58.8 Active 99760422 Problem Type 2 diabetes mellitus without complication, without long-term current use of insulin E11.9 Active 638921237 Problem Vaginal dryness, menopausal N95.1 Active 60146447 Problem Mild intermittent asthma with acute exacerbation J45.21 Active 837831224 Problem Chronic nonintractable headache, unspecified headache type R51 Active 53312979 Problem Vitreous floaters of right eye H43.391 Active 41675223 ALLERGIES Substance Reaction Event Type Date Status Penicillin V Potassium anaphylaxis Drug Allergy May, Active ENCOUNTERS Encounter Location Date Diagnosis [facility] [address] [facility] [id number] [address] Dec, [facility] [address] [id number] [address] Sep, Post traumatic stress disorder (PTSD) F43.10 ; Severe episode of recurrent major depressive disorder, without psychotic features F33.2 and Psychophysiological insomnia F51.04 [facility] [address] [id number] [address] Aug, Dental examination Z01.20 [facility] [address] [id number] [place] [address] Aug, Dental caries on smooth surface penetrating into pulp K02.63 and Encounter for dental examination Z01.20 [facility] [address] [id number] [place] [address] Aug, Dental examination Z01.20 [facility] [address] [id number] [place] [address] Aug, [facility] [id number] [place] [id number] July, Other infective chronic otitis externa of right ear H60.391 [facility] [address] [id number] [place] [address] July, [facility] [id number] [place] [address] [id number] July, Other infective acute otitis externa of right ear H60.391 and Vaginal dryness, menopausal N95.1 [facility] [place] [address] [id number][place] [id number] July, [facility] [address] [id number] [id number] July, Dental examination Z01.20 [facility] [address] [id number][place] [id number] July, [facility] [address] [place] [address] Jun, Post traumatic stress disorder (PTSD) F43.10 ; Severe episode of recurrent major depressive disorder, without psychotic features F33.2 and Psychophysiological insomnia F51.04 [facility] [id number] [id number] May, Cervicalgia M54.2 [facility] [address]65100[place] [address] May, Pinched nerve in neck G58.8 [facility] [id number] [place] [address] Apr, Post traumatic stress disorder (PTSD) F43.10 ; Severe episode of recurrent major depressive disorder, without psychotic features F33.2 and Psychophysiological insomnia F51.04 [place] [id number] [place] [address] Apr, [facility] [id number] [place] [address] [id number] Apr, Mild intermittent asthma with acute exacerbation J45.21 [id number] [place] [address] [id number] Apr, Chronic nonintractable headache, unspecified headache type R51 [place] [id number] [place] [address] Mar, Post traumatic stress disorder (PTSD) F43.10 ; Severe episode of recurrent major depressive disorder, without psychotic features F33.2 and Psychophysiological insomnia F51.04 [place] [id number] [place] [address] Mar, Post traumatic stress disorder (PTSD) F43.10 [id number] [place] [address] [id number] Mar, Type 2 diabetes mellitus without complication, without long-term current use of insulin E11.9 ; Bilateral low back pain without sciatica, unspecified chronicity M54.5 and Chronic nonintractable headache, unspecified headache type R51 [place] [address] [place] [address] Feb, [id number] [place] [address] [id number] Jan, Vitreous floaters of right eye H43.391 [id number] [place] [address] [phone] Jan, [place] [id number] [place] [address] Nov, Post traumatic stress disorder (PTSD) F43.10 ; Severe episode of recurrent major depressive disorder, without psychotic features F33.2 ; Psychophysiological insomnia F51.04 and Homeless Z59.0 [facility] [id number] [place] [address] Oct, Post traumatic stress disorder (PTSD) F43.10 ; Severe episode of recurrent major depressive disorder, without psychotic features F33.2 and Psychophysiological insomnia F51.04 [facility] [id number] [place] [address] [id number] Oct, Vaginal dryness, menopausal N95.1 and Dyspareunia in female N94.10 [facility] [id number] [place] [address] [phone] Oct, [facility] [id number] [place] [address] Aug, Post traumatic stress disorder (PTSD) F43.10 ; Severe episode of recurrent major depressive disorder, without psychotic features F33.2 and Psychophysiological insomnia F51.04 [facility] [id number] [place] [address] [id number] Aug, [facility] [id number] [place] [address] [phone] Aug, Well woman exam Z01.419 and Vaginal dryness, menopausal N95.1 [facility] [id number] [place] [address] July, [facility] [id number] [place] [address] July, [facility] [id number] [place] [address] July, Post traumatic stress disorder (PTSD) F43.10 ; Severe episode of recurrent major depressive disorder, without psychotic features F33.2 and Psychophysiological insomnia F51.04 [facility] [id number] [place] [address] [phone] July, Mass of left lung R91.8 [facility] [id number] [place] [address] Jun, Shortness of breath R06.02 ; Wheezing R06.2 and Mild intermittent asthma with acute exacerbation J45.21 [place] [address] [place] [address] May, Post traumatic stress disorder (PTSD) F43.10 ; Severe episode of recurrent major depressive disorder, without psychotic features F33.2 ; Essential (primary) hypertension I10 and Psychophysiological insomnia F51.04 [facility] [id number] [place] [address] [id number] May, 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 and Headache, unspecified headache type R51 [place] [id number] [place] [address] Apr, [place] [id number] [place] [address] 37[address] Apr, Post traumatic stress disorder (PTSD) F43.10 ; Severe episode of recurrent major depressive disorder, without psychotic features F33.2 ; Essential (primary) hypertension I10 and Psychophysiological insomnia F51.04 [place] [address] [place] [address] 71687[address] Mar, Post traumatic stress disorder (PTSD) F43.10 and Severe episode of recurrent major depressive disorder, without psychotic features F33.2 [place] [address]65100[place] [address] Feb, Post traumatic stress disorder (PTSD) F43.10 [place] [address] [place] [address] Feb, Post traumatic stress disorder (PTSD) F43.10 and Severe episode of recurrent major depressive disorder, without psychotic features F33.2 [facility] [address] [place] [address] [id number] Feb, Anxiety, generalized F41.1 and Severe episode of recurrent major depressive disorder, without psychotic features F33.2 [place] [address] [place] [address]644[address] Feb, Severe episode of recurrent major depressive disorder, without psychotic features F33.2 and Anxiety, generalized F41.1 [facility] [id number] [place] [address] [phone] Aug, [facility] [id number] [place] [address] [phone] May, Forgetfulness R68.89 and Bilateral low back pain without sciatica, unspecified chronicity M54.5 [facility] [id number] [place] [address] [id number] Apr, Forgetfulness R68.89 [facility] [id number] [place] [address] [phone] Jan, Irritant contact dermatitis due to other chemical products L24.5 [facility] [id number] [place] [address] [id number] Sep, Nausea vomiting and diarrhea 787.91 [facility] [address] [address] Jun, [facility] [id number] [place] [address] 55800[address] Jun, [facility] [address] [address] July, [facility] [id number] [place] [address] [phone] July, [facility] [id number] [place] [address] [id number] Jun, [facility] [id number] [place] [address] 39917- 25[address] Jun, [facility] [id number] [place] [address] [phone] May, [facility] [id number] [place] [address] 01004- 2546 May, [facility] [id number] [place] [address] [phone] May, [facility] [address] [place] [address] May, [facility] [address] [facility] [id number] [place] [address] May, [facility] [address] [id number] [address] May, [facility] [address] [facility] [id number][place] [phone] Apr, [facility] [address] [facility] [id number] [place] [address] Apr, [facility] [address] [facility] [id number][place] [phone] Apr, [facility] [address] [id number] [address] Apr, [facility] [address] [id number][place] [id number] Apr, [facility] [address]65[address] [address] Apr, [facility] [address] [id number] [phone] Apr, [facility] [address] [id number] [address] Apr, [facility] [address] [id number], [place] [id number] Apr, [facility] [address]65[address] [address] Apr, [facility] [address] [facility] [id number] [place] [address] Jan, [facility] [address] [facility] [id number] [place] [address] Jan, [facility] [address] [id number], [place] [phone] Dec, [facility] [address] [facility] [id number][place] [id number] Oct, [facility] [address] [facility] [id number] [place] [phone] Sep, [facility] [address] [facility] [id number], [place] [id number] Aug, [facility] [address] [facility] [id number][place] [id number] Aug, [facility] [address] [facility] [id number][place] [id number] Jun, [facility] [address] [facility] [id number][place] [id number] May, [facility] [address] [facility] [id number], [place] [phone] May, [facility] [address] [facility] [id number] [place] [address] Apr, IMMUNIZATIONS No Known Immunizations SOCIAL HISTORY Never Assessed REASON FOR VISIT Walk-in care f/u [facility] 06[facility]01 [facility] [place] [facility] Activity Details Follow Up prn Reason: VITAL SIGNS Height 64.75 in 2017-06-09 Weight 227.1 lbs 2017-06-09 Temperature 96.9 degrees Fahrenheit 2017-06-09 Heart Rate 76 bpm 2017-06-09 Respiratory Rate 16 2017-06-09 BMI 38.08 kg/m2 2017-06-09 Blood pressure systolic 120 mmHg 2017-06-09 Blood pressure diastolic 68 mmHg 2017-06-09 MEDICATIONS Medication Instructions Dosage Frequency Start Date End Date Duration Status Flexeril 5 mg Orally Three times a day 1 tablet as needed 8h May, Active Pristiq 50 MG Orally Once a day 1 tablet 24h 30 days Not-Taking Premarin 0.625 MG/GM Vaginal Daily for Three Weeks, 1 Week off then every other day for 3 weeks, then twice weekly 1 gram Active Trazodone HCl 100 mg Orally Once [...] a day 1 tablet 8h May, Active RESULTS No Results PROCEDURES No Known [...]
--- OUTSIDE RECORDS SUMMARY | 2018-01-18 14:07 | XMS REPORT ---
Author Author STACY Luna [facility] Address [address] [place] [address] Care Team Providers Care Clinical Provider Trainer Name Role Phone STACY Luna Unavailable PROBLEMS Type Condition ICD9-CM Code PGF63-CZ Code Onset Dates Condition Status SNOMED Code Problem Post traumatic stress disorder (PTSD) F43.10 Active 91152888 Problem Psychophysiological insomnia F51.04 Active 389262590 Problem Essential (primary) hypertension I10 Active 68292284 Problem Bilateral low back pain without sciatica, unspecified chronicity M54.5 Active 359256340 Problem Forgetfulness R68.89 Active 97033413 Problem Severe episode of recurrent major depressive disorder, without psychotic features F33.2 Active 11452820 Problem Anxiety, generalized F41.1 Active 23117785 Problem Pinched nerve in neck G58.8 Active 12189668 Problem Type 2 diabetes mellitus without complication, without long-term current use of insulin E11.9 Active 734822406 Problem Vaginal dryness, menopausal N95.1 Active 46813987 Problem Mild intermittent asthma with acute exacerbation J45.21 Active 500300113 Problem Chronic nonintractable headache, unspecified headache type R51 Active 75160961 Problem Vitreous floaters of right eye H43.391 Active 84230429 ALLERGIES No Information ENCOUNTERS Encounter Location Date Diagnosis [facility] [address] [id number] [address] Dec, [facility] [address], [place] [address] Sep, Post traumatic stress disorder (PTSD) F43.10 ; Severe episode of recurrent major depressive disorder, without psychotic features F33.2 and Psychophysiological insomnia F51.04 [facility] [address] [id number], [place] [address] Aug, Dental examination Z01.20 [facility] [address] [id number], [place] [address] Aug, Dental caries on smooth surface penetrating into pulp K02.63 and Encounter for dental examination Z01.20 [facility] [address] [id number], [place] [address] Aug, Dental examination Z01.20 [facility] [address] [id number], [place] [address] Aug, [facility] [id number] [place] [phone] July, Other infective chronic otitis externa of right ear H60.391 [facility] [address] [id number], [place] [address] July, [facility] [id number] [place] [address] [phone] July, Other infective acute otitis externa of right ear H60.391 and Vaginal dryness, menopausal N95.1 [facility] [address] [id number] [id number] July, [facility] [address] [id number] [id number] July, Dental examination Z01.20 [facility] [address] [id number] [id number] July, [facility] [id number] [place] [address] Jun, Post traumatic stress disorder (PTSD) F43.10 ; Severe episode of recurrent major depressive disorder, without psychotic features F33.2 and Psychophysiological insomnia F51.04 [facility] [id number] [place] [address] [phone] May, Cervicalgia M54.2 [facility] [address], [place] [address] May, Pinched nerve in neck G58.8 [address] [place] [id number] [place] [address] Apr, Post traumatic stress disorder (PTSD) F43.10 ; Severe episode of recurrent major depressive disorder, without psychotic features F33.2 and Psychophysiological insomnia F51.04 [place] [id number] [place] [address] 09 Apr, 2017 [facility] [id number] [place] [address] [id number] Apr, 2017 Mild intermittent asthma with acute exacerbation J45.21 [id number] [place] [address] [id number] 06 Apr, 2017 Chronic nonintractable headache, unspecified headache type R51 [place] [id number] [place] [address] Mar, Post traumatic stress disorder (PTSD) F43.10 ; Severe episode of recurrent major depressive disorder, without psychotic features F33.2 and Psychophysiological insomnia F51.04 [place] [id number] [place] [address] 98[address] Mar, Post traumatic stress disorder (PTSD) F43.10 [id number] [place] [address] [id number] Mar, Type 2 diabetes mellitus without complication, without long-term current use of insulin E11.9 ; Bilateral low back pain without sciatica, unspecified chronicity M54.5 and Chronic nonintractable headache, unspecified headache type R51 [address] [address], [place] [address] Feb, [id number] [place] [address] [phone] Jan, Vitreous floaters of right eye H43.391 [id number] [place] [address] [phone] Jan, [place] [id number] [place] [address] Nov, Post traumatic stress disorder (PTSD) F43.10 ; Severe episode of recurrent major depressive disorder, without psychotic features F33.2 ; Psychophysiological insomnia F51.04 and Homeless Z59.0 [facility] [id number] [place] [address] Oct, Post traumatic stress disorder (PTSD) F43.10 ; Severe episode of recurrent major depressive disorder, without psychotic features F33.2 and Psychophysiological insomnia F51.04 [facility] [id number] [place] [address] [id number] Oct, Vaginal dryness, menopausal N95.1 and Dyspareunia in female N94.10 [facility] [id number] [place] [address] [phone] Oct, [facility] [id number] [place] [address] Aug, Post traumatic stress disorder (PTSD) F43.10 ; Severe episode of recurrent major depressive disorder, without psychotic features F33.2 and Psychophysiological insomnia F51.04 [facility] [id number] [place] [address] [phone] Aug, [facility] [id number] [place] [address] [id number] Aug, Well woman exam Z01.419 and Vaginal dryness, menopausal N95.1 [facility] [id number] [place] [address] July, [facility] [id number] [place] [address] July, [facility] [id number] [place] [address] July, Post traumatic stress disorder (PTSD) F43.10 ; Severe episode of recurrent major depressive disorder, without psychotic features F33.2 and Psychophysiological insomnia F51.04 [facility] [id number] [place] [address] [id number] July, Mass of left lung R91.8 [facility] [id number] [place] [address] Jun, Shortness of breath R06.02 ; Wheezing R06.2 and Mild intermittent asthma with acute exacerbation J45.21 [place] [place] [address] May, Post traumatic stress disorder (PTSD) F43.10 ; Severe episode of recurrent major depressive disorder, without psychotic features F33.2 ; Essential (primary) hypertension I10 and Psychophysiological insomnia F51.04 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 and Headache, unspecified headache type R51 [address] [id number] [place] [address] Apr, [place] [id number] [place] [address] 9[address]23- 7918 Apr, Post traumatic stress disorder (PTSD) F43.10 ; Severe episode of recurrent major depressive disorder, without psychotic features F33.2 ; Essential (primary) hypertension I10 and Psychophysiological insomnia F51.04 [address] [address] [place] [address] 18402[address] 8882 Mar, Post traumatic stress disorder (PTSD) F43.10 and Severe episode of recurrent major depressive disorder, without psychotic features F33.2 [place] [address] [place] [address] 91518- 7068 Feb, Post traumatic stress disorder (PTSD) F43.10 [place] [id number] [place] [address] 38793[address] 9485 Feb, Post traumatic stress disorder (PTSD) F43.10 and Severe episode of recurrent major depressive disorder, without psychotic features F33.2 [facility] [address] [id number] Feb, Anxiety, generalized F41.1 and Severe episode of recurrent major depressive disorder, without psychotic features F33.2 [place] [id number] [place] [address] 11248- 8444 Feb, Severe episode of recurrent major depressive disorder, without psychotic features F33.2 and Anxiety, generalized F41.1 [facility] [id number] [place] [address] [id number] Aug, [facility] [id number] [place] [address] [id number] May, Forgetfulness R68.89 and Bilateral low back pain without sciatica, unspecified chronicity M54.5 [facility] [id number] [place] [address] [phone] Apr, Forgetfulness R68.89 [facility] [id number] [place] [address] [id number] Jan, Irritant contact dermatitis due to other chemical products L24.5 [facility] [id number] [place] [address] [phone] Sep, Nausea vomiting and diarrhea 787.91 [facility] [address] [address] Jun, [facility] [id number] [place] [address] 82275- 2546 Jun, [facility] [address] [address] July, [facility] [id number] [place] [address] [phone] July, [facility] [id number] [place] [address] [phone] Jun, [facility] [id number] [place] [address] 89095- 2546 Jun, [facility] [id number] [place] [address] [id number] May, [facility] [address] [address] May, [facility] [id number] [place] [address] [phone] May, [facility] [address] [address] May, [facility] [address] [facility] [id number], [place] [address] May, [facility] [address] [facility] [id number], [place] [address] May, [facility] [address] [id number] [id number] Apr, [facility] [address] [facility] [id number], [place] [address] Apr, [facility] [address] [id number][place] [phone] Apr, [facility] [address] [facility] [id number], [place] [address] Apr, [facility] [address] [facility] [id number][place] [id number] Apr, [facility] [address] [facility] [id number], [place] [address] Apr, [facility] [address] [facility] [id number][place] [id number] Apr, [facility] [address] [facility] [id number], [place] [address] Apr, [facility] [address] [facility] [id number][place] [phone] Apr, [facility] [address] [facility] [id number], [place] [address] Apr, [facility] [address] [facility] [id number], [place] [address] Jan, [facility] [address] [facility] [id number], [place] [address] Jan, [facility] [address] [id number][place] [id number] Dec, [facility] [address] [id number][place] [id number] Oct, [facility] [address] [facility] [id number] [place] [id number] Sep, [facility] 120 [facility] [id number][place] [id number] Aug, [facility] [address] [id number] [id number] Aug, [facility] 120 [facility] [id number][place] [id number] Jun, [id number] [id number] May, [address] [id number][place] [id number] May, [facility] [address] [facility] [id number], [place] [address] Apr, IMMUNIZATIONS No Known Immunizations SOCIAL HISTORY Never Assessed REASON FOR VISIT PLAN OF CARE VITAL SIGNS MEDICATIONS Medication Instructions Dosage Frequency Start Date End Date Duration Status Clindamycin HCl 150 MG Orally every 8 hrs 2 capsules 8h 5 day(s) Active RESULTS No Results PROCEDURES No Known [...]
--- OUTSIDE RECORDS SUMMARY | 2018-01-18 14:07 | XMS REPORT ---
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 Name Role Phone FLOR RAYMONDJONO Unavailable PROBLEMS Type Condition ICD9-CM Code VNR08-ZM Code Onset Dates Condition Status SNOMED Code Problem Post traumatic stress disorder (PTSD) F43.10 Active 22131163 Problem Psychophysiological insomnia F51.04 Active 940776046 Problem Essential (primary) hypertension I10 Active 38000339 Problem Bilateral low back pain without sciatica, unspecified chronicity M54.5 Active 320357064 Problem Forgetfulness R68.89 Active 21897626 Problem Severe episode of recurrent major depressive disorder, without psychotic features F33.2 Active 46708698 Problem Anxiety, generalized F41.1 Active 70062554 Problem Pinched nerve in neck G58.8 Active 81511326 Problem Type 2 diabetes mellitus without complication, without long-term current use of insulin E11.9 Active 042696506 Problem Vaginal dryness, menopausal N95.1 Active 50946528 Problem Mild intermittent asthma with acute exacerbation J45.21 Active 902637370 Problem Chronic nonintractable headache, unspecified headache type R51 Active 54422826 Problem Vitreous floaters of right eye H43.391 Active 99464862 ALLERGIES No Information ENCOUNTERS Encounter Location Date Diagnosis [facility] [address] [id number] [address] Dec, [facility] [address] [id number] [address] 11 Sep, 2017 Post traumatic stress disorder (PTSD) F43.10 ; Severe episode of recurrent major depressive disorder, without psychotic features F33.2 and Psychophysiological insomnia F51.04 [facility] [address] [id number], [place] [address] Aug, Dental examination Z01.20 [facility] [address] [id number], [place] [address] Aug, Dental caries on smooth surface penetrating into pulp K02.63 and Encounter for dental examination Z01.20 [facility] [address] [id number], [place] [address] Aug, Dental examination Z01.20 [facility] [id number] [place] [address] Aug, [facility] [id number] [place] [address] [id number] July, Other infective chronic otitis externa of right ear H60.391 [facility] [address] [id number], [place] [address] July, [facility] [id number] [place] [address] [id number] July, Other infective acute otitis externa of right ear H60.391 and Vaginal dryness, menopausal N95.1 [facility] [address] [id number] [id number] July, [facility] [id number] [place] [phone] July, Dental examination Z01.20 [facility] [address] [facility] [address] [id number][place] [id number] July, [facility] [id number] [place] [address] Jun, Post traumatic stress disorder (PTSD) F43.10 ; Severe episode of recurrent major depressive disorder, without psychotic features F33.2 and Psychophysiological insomnia F51.04 [facility] [id number] [place] [address] [id number] May, Cervicalgia M54.2 [facility] [id number] [place] [address] May, Pinched nerve in neck G58.8 [facility] [id number] [place] [address] Apr, Post traumatic stress disorder (PTSD) F43.10 ; Severe episode of recurrent major depressive disorder, without psychotic features F33.2 and Psychophysiological insomnia F51.04 [id number] [place] [address] Apr, [facility] [id number] [place] [address] [id number] Apr, Mild intermittent asthma with acute exacerbation J45.21 [id number] [place] [address] [id number] Apr, Chronic nonintractable headache, unspecified headache type R51 [address] [id number] [place] [address] Mar, Post traumatic stress disorder (PTSD) F43.10 ; Severe episode of recurrent major depressive disorder, without psychotic features F33.2 and Psychophysiological insomnia F51.04 [id number] [place] [address] Mar, Post traumatic stress disorder (PTSD) F43.10 [id number] [place] [address] [id number] Mar, Type 2 diabetes mellitus without complication, without long-term current use of insulin E11.9 ; Bilateral low back pain without sciatica, unspecified chronicity M54.5 and Chronic nonintractable headache, unspecified headache type R51 [address] [place] [address] Feb, [id number] [place] [address] [id number] Jan, Vitreous floaters of right eye H43.391 [id number] [place] [address] [id number] Jan, [id number] [place] [address] Nov, Post traumatic stress disorder (PTSD) F43.10 ; Severe episode of recurrent major depressive disorder, without psychotic features F33.2 ; Psychophysiological insomnia F51.04 and Homeless Z59.0 [facility] [id number] [place] [address] Oct, Post traumatic stress disorder (PTSD) F43.10 ; Severe episode of recurrent major depressive disorder, without psychotic features F33.2 and Psychophysiological insomnia F51.04 [facility] [id number] [place] [address] [id number] Oct, Vaginal dryness, menopausal N95.1 and Dyspareunia in female N94.10 [facility] [id number] [place] [address] [id number] Oct, [facility] [id number] [place] [address] Aug, Post traumatic stress disorder (PTSD) F43.10 ; Severe episode of recurrent major depressive disorder, without psychotic features F33.2 and Psychophysiological insomnia F51.04 [facility] [id number] [place] [address] [id number] Aug, [facility] [id number] [place] [address] [id number] Aug, Well woman exam Z01.419 and Vaginal dryness, menopausal N95.1 [facility] [id number] [place] [address] July, [facility] [id number] [place] [address] July, [facility] [id number] [place] [address] July, Post traumatic stress disorder (PTSD) F43.10 ; Severe episode of recurrent major depressive disorder, without psychotic features F33.2 and Psychophysiological insomnia F51.04 [facility] [id number] [place] [address] [id number] July, Mass of left lung R91.8 [facility] [id number] [place] [address] Jun, Shortness of breath R06.02 ; Wheezing R06.2 and Mild intermittent asthma with acute exacerbation J45.21 [facility] [address] [address] May, Post traumatic stress disorder (PTSD) F43.10 ; Severe episode of recurrent major depressive disorder, without psychotic features F33.2 ; Essential (primary) hypertension I10 and Psychophysiological insomnia F51.04 [facility] [id number] [id number] May, 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 and Headache, unspecified headache type R51 [facility] [address] [place] [address] Apr, [facility] [id number] [place] [address]23[address] Apr, Post traumatic stress disorder (PTSD) F43.10 ; Severe episode of recurrent major depressive disorder, without psychotic features F33.2 ; Essential (primary) hypertension I10 and Psychophysiological insomnia F51.04 [address]100[place] [address] Mar, Post traumatic stress disorder (PTSD) F43.10 and Severe episode of recurrent major depressive disorder, without psychotic features F33.2 [facility] [address] [address] Feb, Post traumatic stress disorder (PTSD) F43.10 [address] [place] [address] Feb, Post traumatic stress disorder (PTSD) F43.10 and Severe episode of recurrent major depressive disorder, without psychotic features F33.2 [facility] [id number][place] [id number] Feb, Anxiety, generalized F41.1 and Severe episode of recurrent major depressive disorder, without psychotic features F33.2 [facility] [address] [address] Feb, Severe episode of recurrent major depressive disorder, without psychotic features F33.2 and Anxiety, generalized F41.1 [facility] [id number][place] [id number] Aug, [facility] [id number] [place] [address] [id number] May, Forgetfulness R68.89 and Bilateral low back pain without sciatica, unspecified chronicity M54.5 [facility] [id number] [place] [address] [id number] Apr, Forgetfulness R68.89 [facility] [id number] [place] [address] [id number] Jan, Irritant contact dermatitis due to other chemical products L24.5 [facility] [id number] [place] [address] [id number] Sep, Nausea vomiting and diarrhea 787.91 [facility] [id number] [place] [address] 01116- 3806 Jun, [facility] [id number] [place] [address] 79104- 2546 Jun, [facility] [id number] [place] [address] 95299- 0376 July, [facility] [id number] [place] [address] [id number] July, [facility] [id number] [place] [address] [id number] Jun, [facility] [id number] [place] [address] 51546 2546 Jun, [facility] [id number] [place] [address] [id number] May, [facility] [id number] [place] [address] 73077- 7756 May, [facility] [id number] [place] [address] [id number] May, [facility] [id number] [place] [address] 80371- 9796 May, [facility] [address] [id number] [place] [address] May, [facility] [address] [id number] [address] May, [facility] [address] [id number] [id number] Apr, [facility] [address] [id number] [address] Apr, [facility] [address] [id number] [place] [id number] Apr, [facility] [address] [id number] [place] [address] Apr, [facility] [address] [id number][place] [id number] Apr, [facility] [address] [id number] [address] 2546 Apr, [facility] [address] [id number][place] [id number] Apr, [facility] [address] [id number] [place] [address] Apr, [facility] [address] [id number][place] [id number] Apr, [facility] [address] [id number] [address] Apr, [facility] [address] [id number] [place] [address] Jan, [facility] [address] [id number] [address] Jan, [facility] [address] [id number][place] [id number] Dec, [facility] [address] [id number][place] [id number] Oct, [facility] [address] [id number] [place] [phone] Sep, [facility] [address] [facility] [id number][place] [phone] Aug, [facility] [address] [facility] [id number][place] [id number] Aug, [facility] [address] [facility] [id number][place] [id number] Jun, [facility] [address] [facility] [id number][place] [id number] May, [facility] [address] [facility] [id number][place] [id number] May, [facility] [address] [id number] [address] Apr, IMMUNIZATIONS No Known Immunizations SOCIAL HISTORY Never Assessed REASON FOR VISIT f/u PLAN OF CARE Activity Details Follow Up 3 Months Reason: VITAL SIGNS Height 64.75 in 2017-06-30 Weight 231 lbs 2017-06-30 Heart Rate 74 bpm 2017-06-30 Respiratory Rate 18 2017-06-30 BMI 38.73 kg/m2 2017-06-30 Blood pressure systolic 136 mmHg 2017-06-30 Blood pressure diastolic 76 mmHg 2017-06-30 MEDICATIONS Medication Instructions Dosage Frequency Start Date End Date Duration Status Pristiq 50 MG Orally Once a day 1 tablet 24h 30 days Not-Taking Flexeril 5 mg Orally Three times a day 1 tablet as needed 8h May, Active Ibuprofen 800 MG Orally Three times a day 1 tablet 8h May, Active Ambien 5 mg Orally Once a day 1 tablet at bedtime 24h 30 days Active Trazodone HCl 100 mg Orally Once a day 1/2 tablet at bedtime 24h 30 days Active Premarin 0.625 MG/GM Vaginal Daily for Three Weeks, 1 Week off then every other day for 3 weeks, then twice weekly 1 gram Active Ventolin HFA 108 (90 Base) MCG/ACT Inhalation 4 times a day 2 puffs as needed 6h Apr, Active RESULTS No Results PROCEDURES No Known [...]
--- OUTSIDE RECORDS SUMMARY | 2018-01-18 14:08 | XMS REPORT ---
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 Name Role Phone DANIEL ABARCA Unavailable PROBLEMS Type Condition ICD9-CM Code ADR19-VP Code Onset Dates Condition Status SNOMED Code Problem Post traumatic stress disorder (PTSD) F43.10 Active 22657244 Problem Psychophysiological insomnia F51.04 Active 787217532 Problem Essential (primary) hypertension I10 Active 77463597 Problem Bilateral low back pain without sciatica, unspecified chronicity M54.5 Active 136799222 Problem Forgetfulness R68.89 Active 10702510 Problem Severe episode of recurrent major depressive disorder, without psychotic features F33.2 Active 57257783 Problem Anxiety, generalized F41.1 Active 88200469 Problem Pinched nerve in neck G58.8 Active 73684469 Problem Type 2 diabetes mellitus without complication, without long-term current use of insulin E11.9 Active 011644023 Problem Vaginal dryness, menopausal N95.1 Active 72393874 Problem Mild intermittent asthma with acute exacerbation J45.21 Active 181832153 Problem Chronic nonintractable headache, unspecified headache type R51 Active 89576325 Problem Vitreous floaters of right eye H43.391 Active 70184067 ALLERGIES No Information ENCOUNTERS Encounter Location Date Diagnosis [facility] [id number] [address] Jun, [facility] [address] [id number] [id number] May, Cervicalgia M54.2 [facility] [address], [place] [address] May, 2017 Pinched nerve in neck G58.8 [facility] [address], [place] [address] Apr, Post traumatic stress disorder (PTSD) F43.10 ; Severe episode of recurrent major depressive disorder, without psychotic features F33.2 and Psychophysiological insomnia F51.04 [address] [place] [id number] Apr, [facility] [id number] [place] [address] [id number] Apr, Mild intermittent asthma with acute exacerbation J45.21 [facility] [id number] [place] [address] [id number] Apr, Chronic nonintractable headache, unspecified headache type R51 [place] [id number] [place] [address] Mar, Post traumatic stress disorder (PTSD) F43.10 ; Severe episode of recurrent major depressive disorder, without psychotic features F33.2 and Psychophysiological insomnia F51.04 [place] [id number] [place] [address] Mar, Post traumatic stress disorder (PTSD) F43.10 [facility] [id number] [place] [address] [phone] Mar, Type 2 diabetes mellitus without complication, without long-term current use of insulin E11.9 ; Bilateral low back pain without sciatica, unspecified chronicity M54.5 and Chronic nonintractable headache, unspecified headache type R51 [address] [address] [place] [address] Feb, [facility] [id number] [place] [address] [id number] Jan, Vitreous floaters of right eye H43.391 [facility] [id number] [place] [address] [id number] Jan, [place] [id number] [place] [address] Nov, Post traumatic stress disorder (PTSD) F43.10 ; Severe episode of recurrent major depressive disorder, without psychotic features F33.2 ; Psychophysiological insomnia F51.04 and Homeless Z59.0 [facility] [id number] [place] [address] Oct, Post traumatic stress disorder (PTSD) F43.10 ; Severe episode of recurrent major depressive disorder, without psychotic features F33.2 and Psychophysiological insomnia F51.04 [facility] [id number] [place] [address] [id number] Oct, Vaginal dryness, menopausal N95.1 and Dyspareunia in female N94.10 [facility] [id number] [place] [address] [id number] Oct, [facility] [address] [address] Aug, Post traumatic stress disorder (PTSD) F43.10 ; Severe episode of recurrent major depressive disorder, without psychotic features F33.2 and Psychophysiological insomnia F51.04 [facility] [id number] [place] [address] [id number] Aug, [facility] [address] [id number] Aug, Well woman exam Z01.419 and Vaginal dryness, menopausal N95.1 [facility] [id number] [place] [address]- [address] July, [facility] [id number] [place] [address] 71987- [address] July, [facility] [id number] [place] [address]- [address] July, Post traumatic stress disorder (PTSD) F43.10 ; Severe episode of recurrent major depressive disorder, without psychotic features F33.2 and Psychophysiological insomnia F51.04 [facility] [id number] [place] [address] [id number] July, Mass of left lung R91.8 [facility] [address] [place] [address] Jun, Shortness of breath R06.02 ; Wheezing R06.2 and Mild intermittent asthma with acute exacerbation J45.21 [facility] [address], [place] [address] May, Post traumatic stress disorder (PTSD) F43.10 ; Severe episode of recurrent major depressive disorder, without psychotic features F33.2 ; Essential (primary) hypertension I10 and Psychophysiological insomnia F51.04 [facility] [id number] [phone] May, 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 and Headache, unspecified headache type R51 [facility] [address] [place] [address]71[address] Apr, [facility] [id number] [place] [address] 089[address]- [address] Apr, Post traumatic stress disorder (PTSD) F43.10 ; Severe episode of recurrent major depressive disorder, without psychotic features F33.2 ; Essential (primary) hypertension I10 and Psychophysiological insomnia F51.04 [facility] [address] [place] [address] 89918- 8780 Mar, Post traumatic stress disorder (PTSD) F43.10 and Severe episode of recurrent major depressive disorder, without psychotic features F33.2 [facility] [address] [place] [address] 94339- [address]83 Feb, Post traumatic stress disorder (PTSD) F43.10 [facility] [address], [place] [address] Feb, Post traumatic stress disorder (PTSD) F43.10 and Severe episode of recurrent major depressive disorder, without psychotic features F33.2 [facility] [address] [id number] [id number] Feb, Anxiety, generalized F41.1 and Severe episode of recurrent major depressive disorder, without psychotic features F33.2 [facility] [address], [place] [address] Feb, Severe episode of recurrent major depressive disorder, without psychotic features F33.2 and Anxiety, generalized F41.1 [facility] [id number] [place] [id number] Aug, [facility] [id number] [place] [address] [id number] May, Forgetfulness R68.89 and Bilateral low back pain without sciatica, unspecified chronicity M54.5 [facility] [id number] [place] [address] [id number] Apr, Forgetfulness R68.89 [facility] [id number] [place] [address] [id number] Jan, Irritant contact dermatitis due to other chemical products L24.5 [facility] [id number] [place] [address] [id number] Sep, Nausea vomiting and diarrhea 787.91 [facility] [place] [id number] [place] [address] Jun, [facility] [place] [id number] [place] [address]- [address] Jun, [facility] [id number] [place] [address] 36013- 7193 July, [facility] [id number] [place] [address] [phone] July, [facility] [id number] [place] [address] [phone] Jun, [facility] [address] [place] [address] 34568- 3876 Jun, [facility] [id number] [place] [id number] May, [facility] [id number] [place] [address]14- [address] May, [facility] [id number] [place] [address] [id number] May, [facility] [id number] [place] [address]87- [address] May, [facility] [id number], [place] [address] May, [facility] [address] [facility] [id number] [address] May, [facility] [address] [id number] [place] [id number] Apr, [facility] [address] [facility] [id number], [place] [address] Apr, [facility] [address] [id number] [place] [id number] Apr, [facility] [address] [facility] [id number], [place] [address] Apr, [facility] [address] [id number] [place] [id number] Apr, [facility] [address], [place] [address] Apr, [facility] [address] [id number] [place] [id number] Apr, [facility] [address], [place] [address] Apr, [facility] [address] [id number] [place] [id number] Apr, [facility] [id number], [place] [address] Apr, [facility] [address], [place] [address] Jan, [facility] [address] [facility] [id number], [place] [address] Jan, [facility] [address] [id number] [place] [id number] Dec, [facility] [address] [id number] [place] [id number] Oct, [facility] [address] [id number] [place] [id number] Sep, [facility] [address] [id number] [place] [id number] Aug, [address] [id number] [place] [id number] Aug, [id number] [id number] Jun, [id number] [id number] May, [id number] [phone] May, [facility] [address] [facility] [id number] [address] Apr, IMMUNIZATIONS No Known Immunizations SOCIAL HISTORY Never Assessed REASON FOR VISIT Premarin clarification PLAN OF CARE VITAL SIGNS MEDICATIONS Unknown [...]
--- OUTSIDE RECORDS SUMMARY | 2018-01-18 14:08 | XMS REPORT ---
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 Name Role Phone EDE ESTRADA Unavailable PROBLEMS Type Condition ICD9-CM Code KFU60-LO Code Onset Dates Condition Status SNOMED Code Problem Post traumatic stress disorder (PTSD) F43.10 Active 89826044 Problem Psychophysiological insomnia F51.04 Active 696936542 Problem Essential (primary) hypertension I10 Active 55101171 Problem Bilateral low back pain without sciatica, unspecified chronicity M54.5 Active 020049701 Problem Forgetfulness R68.89 Active 63273178 Problem Severe episode of recurrent major depressive disorder, without psychotic features F33.2 Active 92895222 Problem Anxiety, generalized F41.1 Active 56567571 Problem Pinched nerve in neck G58.8 Active 84800038 Problem Type 2 diabetes mellitus without complication, without long-term current use of insulin E11.9 Active 531536011 Problem Vaginal dryness, menopausal N95.1 Active 11209156 Problem Mild intermittent asthma with acute exacerbation J45.21 Active 647299947 Problem Chronic nonintractable headache, unspecified headache type R51 Active 65156799 Problem Vitreous floaters of right eye H43.391 Active 27179706 ALLERGIES Substance Reaction Event Type Date Status Penicillin V Potassium anaphylaxis Drug Allergy May, Active ENCOUNTERS Encounter Location Date Diagnosis [facility] [address] [facility] [id number] [address] Dec, [facility] [address] [facility] [id number] [address] Sep, Post traumatic stress disorder (PTSD) F43.10 ; Severe episode of recurrent major depressive disorder, without psychotic features F33.2 and Psychophysiological insomnia F51.04 [facility] [address] [id number], [place] [address] Aug, Dental examination Z01.20 [facility] [address] [id number], [place] [address] Aug, Dental caries on smooth surface penetrating into pulp K02.63 and Encounter for dental examination Z01.20 [facility] [address] [id number], [place] [address] Aug, Dental examination Z01.20 [facility] [address] [id number], [place] [address] Aug, [facility] [id number] [place] [id number] July, Other infective chronic otitis externa of right ear H60.391 [facility] [id number] [place] [address] July, [facility] [id number] [place] [address] [id number] July, Other infective acute otitis externa of right ear H60.391 and Vaginal dryness, menopausal N95.1 [facility] [address] [id number] [phone] July, [facility] [address] [id number][place] [phone] July, Dental examination Z01.20 [facility] [address] [id number][place] [phone] July, [facility] [address]65100[place] [address] Jun, Post traumatic stress disorder (PTSD) F43.10 ; Severe episode of recurrent major depressive disorder, without psychotic features F33.2 and Psychophysiological insomnia F51.04 [facility] [id number] [id number] May, Cervicalgia M54.2 [facility] [address]65100[place] [address] May, Pinched nerve in neck G58.8 [place] [id number] [place] [address] Apr, Post traumatic stress disorder (PTSD) F43.10 ; Severe episode of recurrent major depressive disorder, without psychotic features F33.2 and Psychophysiological insomnia F51.04 [place] [id number] [place] [address] Apr, [facility] [id number] [place] [address] [id number] Apr, Mild intermittent asthma with acute exacerbation J45.21 [id number] [place] [id number] Apr, Chronic nonintractable headache, unspecified headache type R51 [place] [address] [address] Mar, Post traumatic stress disorder (PTSD) F43.10 ; Severe episode of recurrent major depressive disorder, without psychotic features F33.2 and Psychophysiological insomnia F51.04 [place] [id number] [place] [address] Mar, Post traumatic stress disorder (PTSD) F43.10 [address] [id number] [place] [phone] Mar, Type 2 diabetes mellitus without complication, without long-term current use of insulin E11.9 ; Bilateral low back pain without sciatica, unspecified chronicity M54.5 and Chronic nonintractable headache, unspecified headache type R51 [place] [address] [place] [address] Feb, [place] [id number] [place] [address] [id number] Jan, Vitreous floaters of right eye H43.391 [facility] [id number] [place] [address] [id number] Jan, [place] [address] [address] Nov, Post traumatic stress disorder (PTSD) F43.10 ; Severe episode of recurrent major depressive disorder, without psychotic features F33.2 ; Psychophysiological insomnia F51.04 and Homeless Z59.0 [facility] [address] [place] [address] Oct, Post traumatic stress disorder (PTSD) F43.10 ; Severe episode of recurrent major depressive disorder, without psychotic features F33.2 and Psychophysiological insomnia F51.04 [facility] [id number] [place] [address] [id number] Oct, Vaginal dryness, menopausal N95.1 and Dyspareunia in female N94.10 [facility] [id number] [place] [address] [id number] Oct, [facility] [id number] [place] [address] Aug, Post traumatic stress disorder (PTSD) F43.10 ; Severe episode of recurrent major depressive disorder, without psychotic features F33.2 and Psychophysiological insomnia F51.04 [facility] [id number][place] [id number] Aug, [facility] [id number] [place] [id number] Aug, Well woman exam Z01.419 and Vaginal dryness, menopausal N95.1 [facility] [address]65100[place] [address] July, [facility] [id number] [place] [address] July, [facility] [address] [place] [address] July, Post traumatic stress disorder (PTSD) F43.10 ; Severe episode of recurrent major depressive disorder, without psychotic features F33.2 and Psychophysiological insomnia F51.04 [facility] [id number][place] [phone] July, Mass of left lung R91.8 [facility] [address] [id number] [address] Jun, Shortness of breath R06.02 ; Wheezing R06.2 and Mild intermittent asthma with acute exacerbation J45.21 [place] [address] [place] [address] May, Post traumatic stress disorder (PTSD) F43.10 ; Severe episode of recurrent major depressive disorder, without psychotic features F33.2 ; Essential (primary) hypertension I10 and Psychophysiological insomnia F51.04 [facility] [id number] [place] [address] [id number] May, 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 and Headache, unspecified headache type R51 [place] [id number] [place] [address] Apr, [place] [id number] [place] [address] Apr, Post traumatic stress disorder (PTSD) F43.10 ; Severe episode of recurrent major depressive disorder, without psychotic features F33.2 ; Essential (primary) hypertension I10 and Psychophysiological insomnia F51.04 [place] [id number] [place] [address] Mar, Post traumatic stress disorder (PTSD) F43.10 and Severe episode of recurrent major depressive disorder, without psychotic features F33.2 [place] [address] [place] [address] Feb, Post traumatic stress disorder (PTSD) F43.10 [place] [id number] [place] [address] Feb, Post traumatic stress disorder (PTSD) F43.10 and Severe episode of recurrent major depressive disorder, without psychotic features F33.2 [facility] [id number] [place] [address] [id number] Feb, Anxiety, generalized F41.1 and Severe episode of recurrent major depressive disorder, without psychotic features F33.2 [place] [id number] [place] [address] Feb, Severe episode of recurrent major depressive disorder, without psychotic features F33.2 and Anxiety, generalized F41.1 [facility] [id number] [place] [address] [id number] Aug, [facility] [id number] [place] [address] [phone] May, Forgetfulness R68.89 and Bilateral low back pain without sciatica, unspecified chronicity M54.5 [facility] [id number] [place] [address] [phone] Apr, Forgetfulness R68.89 [facility] [id number] [place] [address] [phone] Jan, Irritant contact dermatitis due to other chemical products L24.5 [facility] [id number] [place] [address] [id number] Sep, Nausea vomiting and diarrhea 787.91 [facility] [id number] [place] [address] 25[address] Jun, [facility] [id number] [place] [address] 25[address] Jun, [facility] [id number] [place] [address] July, [facility] [id number] [place] [address] [id number] July, [facility] [id number] [place] [address] [id number] Jun, [facility] [id number] [place] [address] Jun, [facility] [id number] [place] [address] [id number] May, [facility] [id number] [place] [address] 25[address] May, [facility] [id number] [place] [address] [id number] May, [facility] [address] [id number] [address] May, [facility] [address] [facility] [id number] [address] May, [facility] [address] [facility] [id number] [place] [address] May, [facility] [address] [facility] [id number][place] [phone] Apr, [facility] [address] [facility] [id number] [place] [address] Apr, [facility] [address] [facility] [id number], [place] [phone] Apr, [facility] [address] [id number] [address] Apr, [facility] [id number] [phone] Apr, [facility] [address] [address] Apr, [facility] [address] [facility] [id number], [place] [id number] Apr, [facility] [address] [address] Apr, [facility] [address] [id number], [place] [id number] Apr, [facility] [address] [id number] [address] Apr, [facility] [address] [facility] [id number] [address] Jan, [facility] [address] [facility] [id number] [place] [address] Jan, [facility] [address] [id number][place] [id number] Dec, [facility] [address] [facility] [id number], [place] [phone] Oct, [facility] [address] [facility] [id number] [place] [phone] Sep, [facility] [address] [facility] [id number], [place] [id number] Aug, [facility] [address] [facility] [id number][place] [id number] Aug, [facility] [address] [facility] [id number][place] [phone] Jun, [facility] [address] [facility] [id number], [place] [phone] May, [facility] [address] [facility] [id number], [place] [id number] May, [facility] [address] [facility] [id number] [place] [address] Apr, IMMUNIZATIONS No Known Immunizations SOCIAL HISTORY Never Assessed REASON FOR VISIT left arm pain...reports it "goes to sleep" a lot. also reports the same feeling in her left hand. denies any injury. this has been going on for 2 weeks. [email or web address] PLAN OF CARE Activity Details Follow Up prn Reason: VITAL SIGNS Height 64.75 in 2017-06-01 Weight 228.0 lbs 2017-06-01 Temperature 98.3 degrees Fahrenheit 2017-06-01 Heart Rate 66 bpm 2017-06-01 Respiratory Rate 20 2017-06-01 BMI 38.23 kg/m2 2017-06-01 Blood pressure systolic 126 mmHg 2017-06-01 Blood pressure diastolic 78 mmHg 2017-06-01 MEDICATIONS Medication Instructions Dosage Frequency Start Date End Date Duration Status Cyclobenzaprine HCl 10 MG Orally Three times a day 1 tablet as needed 8h May, May, 7 days Active Pristiq 50 MG Orally Once a day 1 tablet 24h 30 days Not-Taking Trazodone HCl 100 mg Orally Once a day 1/2 tablet at bedtime 24h 30 days Active Premarin 0.625 MG/GM Vaginal Daily for Three Weeks, 1 Week off then every other day for 3 weeks, then twice weekly 1 gram Active Ibuprofen 800 MG Orally Three times a day 1 tablet 8h May, Active Ventolin HFA 108 (90 Base) MCG/ACT Inhalation 4 times a day 2 puffs as needed 6h 07 Apr, 2017 Active Ambien 5 mg Orally Once a day 1 tablet at bedtime 24h 30 days Active Naproxen 500 MG Orally every 12 hrs 1 tablet with food or milk as needed 12h 13 May, 2017 May, 7 days Active RESULTS No Results PROCEDURES No [...]
--- OUTSIDE RECORDS SUMMARY | 2018-01-18 14:08 | XMS REPORT ---
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 Name Role Phone RC FLORES Unavailable PROBLEMS Type Condition ICD9-CM Code ESR43-GU Code Onset Dates Condition Status SNOMED Code Problem Bilateral low back pain without sciatica, unspecified chronicity M54.5 Active 704681488 Problem Anxiety, generalized F41.1 Active 81842112 Problem Forgetfulness R68.89 Active 26333497 Problem Chronic rhinitis 472.0 Active 80757237 Problem Essential hypertension, benign 401.1 Active 6681886 Problem Effusion of ankle and foot joint 719.07 Active 9309725 Problem Asthma, unspecified, unspecified status 493.90 Active 21698746 Problem Vaginal dryness, menopausal N95.1 Active 06160703 Problem Mild intermittent asthma with acute exacerbation J45.21 Active 569215081 Problem Post traumatic stress disorder (PTSD) F43.10 Active 14242057 Problem Severe episode of recurrent major depressive disorder, without psychotic features F33.2 Active 81545279 Problem Essential (primary) hypertension I10 Active 16907117 Problem Psychophysiological insomnia F51.04 Active 703320228 ALLERGIES Substance Reaction Event Type Date Status Penicillin V Potassium anaphylaxis Drug Allergy Feb, Active SOCIAL HISTORY No smoking Hx information available PLAN OF CARE Activity Details Follow Up as carlos ibrahim Reason:anxiety VITAL SIGNS Height 64.75 in 2016-03-09 Weight 235.6 lbs 2016-03-09 Temperature 96.6 degrees Fahrenheit 2016-03-09 Heart Rate 74 bpm 2016-03-09 Respiratory Rate 18 2016-03-09 BMI 39.50 kg/m2 2016-03-09 Blood pressure systolic 132 mmHg 2016-03-09 Blood pressure diastolic 72 mmHg 2016-03-09 MEDICATIONS Medication Instructions Dosage Frequency Start Date End Date Duration Status Pristiq 50 MG Orally Once a day 1 tablet 24h Active Rexulti 0.5 MG Orally Once a day 1 tablet 24h Active Ambien 5 MG Orally Once a day 1 tablet at bedtime 24h Active Trazodone HCl 100 MG Orally Once a day 1/2 tablet at bedtime 24h Active Xanax 0.5 MG Orally Three times a day 1 tablet 8h Active Ritalin 10 mg Orally Twice a day 1 tablet 12h Active RESULTS No Results PROCEDURES Procedure Date Ordered Related Diagnosis Body Site Office Visit, Est Pt., Level 3 Mar 09, 2016 IMMUNIZATIONS No Known Immunizations
--- OUTSIDE RECORDS SUMMARY | 2018-01-18 14:08 | XMS REPORT ---
Author Author RC FLORES [facility] Address [address] [place] [address] Care Team Providers Care Irrigator Head Name Role Phone RC FLORES Unavailable PROBLEMS Type Condition ICD9-CM Code DLU51-LS Code Onset Dates Condition Status SNOMED Code Problem Post traumatic stress disorder (PTSD) F43.10 Active 63103502 Problem Psychophysiological insomnia F51.04 Active 063425522 Problem Essential (primary) hypertension I10 Active 23018396 Problem Bilateral low back pain without sciatica, unspecified chronicity M54.5 Active 222872002 Problem Forgetfulness R68.89 Active 40833809 Problem Severe episode of recurrent major depressive disorder, without psychotic features F33.2 Active 27522044 Problem Anxiety, generalized F41.1 Active 68546929 Problem Pinched nerve in neck G58.8 Active 16225492 Problem Type 2 diabetes mellitus without complication, without long-term current use of insulin E11.9 Active 075725361 Problem Vaginal dryness, menopausal N95.1 Active 22235874 Problem Mild intermittent asthma with acute exacerbation J45.21 Active 369468676 Problem Chronic nonintractable headache, unspecified headache type R51 Active 59155827 Problem Vitreous floaters of right eye H43.391 Active 96337679 ALLERGIES Substance Reaction Event Type Date Status Penicillin V Potassium anaphylaxis Drug Allergy Apr, Active ENCOUNTERS Encounter Location Date Diagnosis [facility] [address] [facility] [id number], [place] [address] Sep, [facility] [address] [id number], [place] [address] Aug, Dental examination Z01.20 [facility] [address] [id number], [place] [address] Aug, 2018 Dental caries on smooth surface penetrating into pulp K02.63 and Encounter for dental examination Z01.20 [facility] [address] [id number], [place] [address] Aug, Dental examination Z01.20 [facility] [address] [id number], [place] [address] Aug, [facility] [id number] [id number] July, Other infective chronic otitis externa of right ear H60.391 [facility] [address] [id number], [place] [address] July, [facility] [id number] [place] [id number] July, Other infective acute otitis externa of right ear H60.391 and Vaginal dryness, menopausal N95.1 [facility] [address] [id number] [phone] July, [facility] [address] [id number] [phone] July, Dental examination Z01.20 [facility] [address] [id number] FALLS[place] [phone] July, [facility] [id number] [place] [address] Jun, Post traumatic stress disorder (PTSD) F43.10 ; Severe episode of recurrent major depressive disorder, without psychotic features F33.2 and Psychophysiological insomnia F51.04 [facility] [id number] [place] [id number] May, Cervicalgia M54.2 [facility] [address] [place] [address] May, Pinched nerve in neck G58.8 [facility] [address] [place] [address] Apr, Post traumatic stress disorder (PTSD) F43.10 ; Severe episode of recurrent major depressive disorder, without psychotic features F33.2 and Psychophysiological insomnia F51.04 [place] [id number] [place] [address] Apr, [place] [id number] [place] [phone] Apr, Mild intermittent asthma with acute exacerbation J45.21 [place] [id number] [place] [phone] Apr, Chronic nonintractable headache, unspecified headache type R51 [place] [address] [address] Mar, Post traumatic stress disorder (PTSD) F43.10 ; Severe episode of recurrent major depressive disorder, without psychotic features F33.2 and Psychophysiological insomnia F51.04 [place] [id number] [place] [address] Mar, Post traumatic stress disorder (PTSD) F43.10 [place] [id number] [place] [phone] Mar, Type 2 diabetes mellitus without complication, without long-term current use of insulin E11.9 ; Bilateral low back pain without sciatica, unspecified chronicity M54.5 and Chronic nonintractable headache, unspecified headache type R51 [place] [id number] [place] [address] Feb, [place] [id number] [place] [phone] Jan, Vitreous floaters of right eye H43.391 [place] [id number] [place] [phone] Jan, [place] [address] [address] Nov, Post traumatic stress disorder (PTSD) F43.10 ; Severe episode of recurrent major depressive disorder, without psychotic features F33.2 ; Psychophysiological insomnia F51.04 and Homeless Z59.0 [place] [address] [address] Oct, Post traumatic stress disorder (PTSD) F43.10 ; Severe episode of recurrent major depressive disorder, without psychotic features F33.2 and Psychophysiological insomnia F51.04 [facility] [id number] [place] [phone] Oct, Vaginal dryness, menopausal N95.1 and Dyspareunia in female N94.10 [facility] [id number] [place] [phone] Oct, [facility] [address] [address] Aug, Post traumatic stress disorder (PTSD) F43.10 ; Severe episode of recurrent major depressive disorder, without psychotic features F33.2 and Psychophysiological insomnia F51.04 [facility] [id number] [place] [phone] Aug, [facility] [id number] [place] [phone] Aug, Well woman exam Z01.419 and Vaginal dryness, menopausal N95.1 [facility] [id number] [place] [address] July, [facility] [address] [address] July, [facility] [id number] [place] [address] July, Post traumatic stress disorder (PTSD) F43.10 ; Severe episode of recurrent major depressive disorder, without psychotic features F33.2 and Psychophysiological insomnia F51.04 [facility] [address] [place] [phone] July, Mass of left lung R91.8 [facility] [address] [address] Jun, Shortness of breath R06.02 ; Wheezing R06.2 and Mild intermittent asthma with acute exacerbation J45.21 [facility] [address] [address] May, Post traumatic stress disorder (PTSD) F43.10 ; Severe episode of recurrent major depressive disorder, without psychotic features F33.2 ; Essential (primary) hypertension I10 and Psychophysiological insomnia F51.04 [facility] [id number] [phone] May, 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 and Headache, unspecified headache type R51 [facility] [id number] [place] [address] Apr, [facility] [id number] [place] [address] Apr, Post traumatic stress disorder (PTSD) F43.10 ; Severe episode of recurrent major depressive disorder, without psychotic features F33.2 ; Essential (primary) hypertension I10 and Psychophysiological insomnia F51.04 [facility] [address] [address] Mar, Post traumatic stress disorder (PTSD) F43.10 and Severe episode of recurrent major depressive disorder, without psychotic features F33.2 [facility] [address], [place] [address] Feb, Post traumatic stress disorder (PTSD) F43.10 [facility] [address] [id number] [address] Feb, Post traumatic stress disorder (PTSD) F43.10 and Severe episode of recurrent major depressive disorder, without psychotic features F33.2 [facility] [id number][place] [phone] Feb, Anxiety, generalized F41.1 and Severe episode of recurrent major depressive disorder, without psychotic features F33.2 [facility] [address], [place] [address] Feb, Severe episode of recurrent major depressive disorder, without psychotic features F33.2 and Anxiety, generalized F41.1 [facility] [address] [id number], [place] [phone] Aug, [facility] [address] [id number] [phone] May, Forgetfulness R68.89 and Bilateral low back pain without sciatica, unspecified chronicity M54.5 [facility] [id number], [place] [phone] Apr, Forgetfulness R68.89 [facility] [id number], [place] [phone] Jan, Irritant contact dermatitis due to other chemical products L24.5 [facility] [id number], [place] [id number] Sep, Nausea vomiting and diarrhea 787.91 [facility] [id number] [place] [address] Jun, [facility] [id number] [place] [address] Jun, [facility] [id number] [place] [address]87[address] July, [facility] [id number], [place] [id number] July, [facility] [id number] [place] [id number] Jun, [facility] [id number] [place] [address]98[address] Jun, [facility] [id number], [place] [id number] May, [facility] [id number] [place] [address]67[address] May, [facility] [id number], [place] [id number] May, [facility] [id number] [place] [address]66[address] May, [facility] [id number] [place] [address] 0[address]68- 4[address] May, [facility] [id number] [place] [address] May, [facility] [address] [id number] [place] [id number] Apr, [facility] [address] [facility] [id number], [place] [address] Apr, [facility] [address] [id number] [place] [id number] Apr, [facility] [address] [facility] [id number], [place] [address] Apr, [facility] [address] [id number] [place] [id number] Apr, [facility] [address], [place] [address] Apr, [facility] [id number], [place] [phone] Apr, [facility] [address], [place] [address] Apr, [facility] [address] [id number][place] [phone] Apr, [facility] [address], [place] [address] Apr, [facility] [address], [place] [address] Jan, [facility] [address] [id number], [place] [address] Jan, [facility] [address] [id number] [place] [id number] Dec, [facility] [address] [id number] [place] [id number] Oct, [facility] [address] [id number] [place] [id number] Sep, [facility] [address] [id number] [place] [id number] Aug, [facility] [address] [id number] [place] [id number] Aug, [facility] [address] [facility] [id number] [place] [phone] Jun, [facility] [address] [facility] [id number] [place] [phone] May, [facility] [address] [facility] [id number] [place] [phone] May, [facility] [address] [facility] [id number] [place] [address] Apr, IMMUNIZATIONS No Known Immunizations SOCIAL HISTORY Never Assessed REASON FOR VISIT Headache f/u Apoorva [place] PLAN OF CARE Activity Details Follow Up 4 Weeks Reason:headaches VITAL SIGNS Height 64.75 in 2017-04-27 Weight 225 lbs 2017-04-27 Temperature 98 degrees Fahrenheit 2017-04-27 Heart Rate 68 bpm 2017-04-27 Respiratory Rate 18 2017-04-27 BMI 37.73 kg/m2 2017-04-27 Blood pressure systolic 138 mmHg 2017-04-27 Blood pressure diastolic 70 mmHg 2017-04-27 MEDICATIONS Medication Instructions Dosage Frequency Start Date End Date Duration Status Premarin 0.625 MG/GM Vaginal Daily for Three Weeks, 1 Week off then every other day for 3 weeks, then twice weekly 1 gram Active Pristiq 100 mg Orally Once a day 2 tablet 24h 30 days Active Trazodone HCl 100 mg Orally Once a day 1/2 tablet at bedtime 24h 30 days Active Ambien 5 mg Orally Once a day 1 tablet at bedtime 24h 30 days Active Ibuprofen 800 MG Orally Three times a day 1 tablet 8h 23 May, 2015 Active RESULTS No Results PROCEDURES Procedure Date Ordered Result Body Site [facility] VISIT ESTABLISHED PATIENT Apr 27, 2017 INSTRUCTIONS MEDICATIONS ADMINISTERED No Known Medications [...]
--- OUTSIDE RECORDS SUMMARY | 2018-01-18 14:08 | XMS REPORT ---
Author Author CHRISTIAN RAYMOND [facility] Address [address] [place] [address] Care Team Providers Care Belt Back Operator Name Role Phone FLOR RAYMONDJONO Unavailable PROBLEMS Type Condition ICD9-CM Code APP79-YW Code Onset Dates Condition Status SNOMED Code Problem Bilateral low back pain without sciatica, unspecified chronicity M54.5 Active 212924943 Problem Anxiety, generalized F41.1 Active 13756929 Problem Forgetfulness R68.89 Active 94536259 Problem Chronic rhinitis 472.0 Active 23105970 Problem Essential hypertension, benign 401.1 Active 5726301 Problem Effusion of ankle and foot joint 719.07 Active 1603135 Problem Asthma, unspecified, unspecified status 493.90 Active 03708701 Problem Vaginal dryness, menopausal N95.1 Active 30100652 Problem Mild intermittent asthma with acute exacerbation J45.21 Active 227345021 Problem Post traumatic stress disorder (PTSD) F43.10 Active 42139273 Problem Severe episode of recurrent major depressive disorder, without psychotic features F33.2 Active 69676715 Problem Essential (primary) hypertension I10 Active 28262775 Problem Psychophysiological insomnia F51.04 Active 884881159 ALLERGIES Substance Reaction Event Type Date Status Penicillin V Potassium anaphylaxis Drug Allergy Feb, Active SOCIAL HISTORY No smoking Hx information available PLAN OF CARE Activity Details Follow Up 4 Weeks Reason: VITAL SIGNS Height 64.75 in 2016-03-17 Weight 236.2 lbs 2016-03-17 Heart Rate 72 bpm 2016-03-17 Respiratory Rate 22 2016-03-17 BMI 39.61 kg/m2 2016-03-17 Blood pressure systolic 138 mmHg 2016-03-17 Blood pressure diastolic 72 mmHg 2016-03-17 MEDICATIONS Medication Instructions Dosage Frequency Start Date End Date Duration Status Rexulti 0.5 MG Orally Once a day 1 tablet 24h Active Pristiq 50 MG Orally Once a day 1 tablet 24h Active Trazodone HCl 100 MG Orally Once a day 1/2 tablet at bedtime 24h Active Ambien 5 mg Orally Once a day 1 tablet at bedtime 24h Active RESULTS Name Result Date Reference Range A1C (IN HOUSE) A1C IN HOUSE Previous A1c Lot Exp date URINE DRUG SCREEN (IN HOUSE) Lot # Exp date Control COCAINE AMPH MTD THC OPIATE BENZO PCP BAR OXY MAMP TCA BUP MDMA PROCEDURES Procedure Date Ordered Related Diagnosis Body Site DRUG SCREEN NON TLC DEVICES Mar 17, 2016 GLYCATED HEMOGLOBIN TEST Mar 17, 2016 Office Visit, Est Pt., Level 3 Mar 17, 2016 IMMUNIZATIONS No Known Immunizations
--- OUTSIDE RECORDS SUMMARY | 2018-01-18 14:09 | XMS REPORT ---
Author Author CHRISTIAN RAYMOND [facility] Address [address] [place] [address] Care Team Providers Care Fitness And Wellness Coordinator Name Role Phone MANDI, DAWJONO Unavailable PROBLEMS Type Condition ICD9-CM Code DRF06-OW Code Onset Dates Condition Status SNOMED Code Problem Post traumatic stress disorder (PTSD) F43.10 Active 83620483 Problem Psychophysiological insomnia F51.04 Active 171183896 Problem Essential (primary) hypertension I10 Active 93202346 Problem Bilateral low back pain without sciatica, unspecified chronicity M54.5 Active 075460116 Problem Forgetfulness R68.89 Active 25226161 Problem Severe episode of recurrent major depressive disorder, without psychotic features F33.2 Active 62341838 Problem Anxiety, generalized F41.1 Active 84297110 Problem Pinched nerve in neck G58.8 Active 07543922 Problem Type 2 diabetes mellitus without complication, without long-term current use of insulin E11.9 Active 755703341 Problem Vaginal dryness, menopausal N95.1 Active 59579151 Problem Mild intermittent asthma with acute exacerbation J45.21 Active 125101342 Problem Chronic nonintractable headache, unspecified headache type R51 Active 91251726 Problem Vitreous floaters of right eye H43.391 Active 49756185 ALLERGIES No Information ENCOUNTERS Encounter Location Date Diagnosis [facility] [address] [facility] [id number] [address] Sep, [facility] [address] [id number] [place] [address] Aug, Dental examination Z01.20 [facility] [address] [id number] [place] [address] Aug, 2018 Dental caries on smooth surface penetrating into pulp K02.63 and Encounter for dental examination Z01.20 [facility] [address] [id number] [address] Aug, Dental examination Z01.20 [facility] [address] [id number], [place] [address] Aug, [facility] [id number] [id number] July, Other infective chronic otitis externa of right ear H60.391 [facility] [address] [id number], [place] [address] July, [facility] [id number], [place] [id number] July, Other infective acute otitis externa of right ear H60.391 and Vaginal dryness, menopausal N95.1 [facility] [address] [id number] [id number] July, [facility] [place] [address] [id number][place] [id number] July, Dental examination Z01.20 [facility] [place] [address] [id number][place] [id number] July, [facility] [id number] [place] [address] Jun, Post traumatic stress disorder (PTSD) F43.10 ; Severe episode of recurrent major depressive disorder, without psychotic features F33.2 and Psychophysiological insomnia F51.04 [facility] [id number], [place] [id number] May, Cervicalgia M54.2 [facility] [id number] [place] [address] May, Pinched nerve in neck G58.8 [facility] [id number] [place] [address] Apr, Post traumatic stress disorder (PTSD) F43.10 ; Severe episode of recurrent major depressive disorder, without psychotic features F33.2 and Psychophysiological insomnia F51.04 [facility] [id number] [place] [phone] Apr, [id number] [place] [id number] Apr, Mild intermittent asthma with acute exacerbation J45.21 [facility] [id number] [place] [phone] Apr, Chronic nonintractable headache, unspecified headache type R51 [place] [id number] [place] [address] Mar, Post traumatic stress disorder (PTSD) F43.10 ; Severe episode of recurrent major depressive disorder, without psychotic features F33.2 and Psychophysiological insomnia F51.04 [place] [id number] [place] [address]86[address] 1137 Mar, Post traumatic stress disorder (PTSD) F43.10 [place] [id number] [place] [address] [id number] Mar, Type 2 diabetes mellitus without complication, without long-term current use of insulin E11.9 ; Bilateral low back pain without sciatica, unspecified chronicity M54.5 and Chronic nonintractable headache, unspecified headache type R51 [place] [id number] [place] [address] Feb, [address] [place] [id number] Jan, Vitreous floaters of right eye H43.391 [place] [id number] [place] [address] [phone] Jan, [place] [id number] [place] [address] Nov, Post traumatic stress disorder (PTSD) F43.10 ; Severe episode of recurrent major depressive disorder, without psychotic features F33.2 ; Psychophysiological insomnia F51.04 and Homeless Z59.0 [place] [address] [place] [address]27[address] Oct, Post traumatic stress disorder (PTSD) F43.10 ; Severe episode of recurrent major depressive disorder, without psychotic features F33.2 and Psychophysiological insomnia F51.04 [facility] [id number] [place] [id number] Oct, Vaginal dryness, menopausal N95.1 and Dyspareunia in female N94.10 [facility] [id number] [place] [id number] Oct, [facility] [address] [phone] Aug, Post traumatic stress disorder (PTSD) F43.10 ; Severe episode of recurrent major depressive disorder, without psychotic features F33.2 and Psychophysiological insomnia F51.04 [facility] [id number] [place] [id number] Aug, [facility] [id number] [place] [address] [phone] Aug, Well woman exam Z01.419 and Vaginal dryness, menopausal N95.1 [facility] [id number] [place] [address] July, [facility] [address] [address] July, [facility] [id number] [place] [address]35[address] July, Post traumatic stress disorder (PTSD) F43.10 ; Severe episode of recurrent major depressive disorder, without psychotic features F33.2 and Psychophysiological insomnia F51.04 [facility] [id number] [place] [address] [id number] July, Mass of left lung R91.8 [facility] [id number] [place] [address] Jun, Shortness of breath R06.02 ; Wheezing R06.2 and Mild intermittent asthma with acute exacerbation J45.21 [facility] [address] [place] [address] 9[address]30- 5[address] May, Post traumatic stress disorder (PTSD) F43.10 ; Severe episode of recurrent major depressive disorder, without psychotic features F33.2 ; Essential (primary) hypertension I10 and Psychophysiological insomnia F51.04 [facility] [id number] [place] [address] [id number] May, 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 and Headache, unspecified headache type R51 [facility] [id number] [place] [address] 10680- 5416 Apr, [facility] [id number] [place] [address] 97856[address] 6[address] Apr, Post traumatic stress disorder (PTSD) F43.10 ; Severe episode of recurrent major depressive disorder, without psychotic features F33.2 ; Essential (primary) hypertension I10 and Psychophysiological insomnia F51.04 [facility] [address] [place] [address] 91541- 2144 Mar, Post traumatic stress disorder (PTSD) F43.10 and Severe episode of recurrent major depressive disorder, without psychotic features F33.2 [facility] [id number] [place] [address] 02148[address] 9474 Feb, Post traumatic stress disorder (PTSD) F43.10 [place] [address] [place] [address] 12759[address] 7229 Feb, Post traumatic stress disorder (PTSD) F43.10 and Severe episode of recurrent major depressive disorder, without psychotic features F33.2 [facility] [id number], [place] [id number] Feb, Anxiety, generalized F41.1 and Severe episode of recurrent major depressive disorder, without psychotic features F33.2 [facility] [address] [place] [address] 59907[address] 5[address] Feb, Severe episode of recurrent major depressive disorder, without psychotic features F33.2 and Anxiety, generalized F41.1 [facility] [address] [id number][place] [id number] Aug, [facility] [id number] [place] [address] [id number] May, Forgetfulness R68.89 and Bilateral low back pain without sciatica, unspecified chronicity M54.5 [facility] [id number], [place] [id number] Apr, Forgetfulness R68.89 [facility] [id number], [place] [id number] Jan, Irritant contact dermatitis due to other chemical products L24.5 [facility] [id number] [place] [address] [id number] Sep, Nausea vomiting and diarrhea 787.91 [facility] [address] [place] [address] 68971- 1804 Jun, [facility] [address] [place] [address] 29747- 2863 Jun, [facility] [address] [place] [address] 04219- 9526 July, [facility] [id number], [place] [id number] July, [facility] [id number], [place] [id number] Jun, [facility] [address] [place] [address] 15118- 2405 Jun, [facility] [id number], [place] [phone] May, [facility] [address]100[place], [place] [address] May, [facility] [id number], [place] [id number] May, [facility] [address] [place] [address] 68747- 3431 May, [facility] [address] [place]198065[place] [address] May, [facility] [address] [place] [address] 92575- 8526 May, [facility] [address] [id number] [place] [id number] Apr, [facility] [address] [facility] [id number], [place] [address] Apr, [facility] [address] [id number] [place] [id number] Apr, [facility] [address] [facility] [id number], [place] [address] Apr, [facility] [address] [id number] [place] [id number] Apr, [facility] [address]00565100[place], [place] [address] Apr, [facility] [address] [id number] [place] [id number] Apr, [facility] [address]00565100[place], [place] [address] Apr, [facility] [address] [id number], [place] [id number] Apr, [facility] [address]00565100[place], [place] [address] Apr, [facility] [address]00565100[place], [place] [address] Jan, [facility] [address] [id number], [place] [address] Jan, [facility] [address] [id number] [place] [phone] Dec, [facility] [address] [id number] [place] [id number] Oct, [facility] [address] [id number] [place] [id number] Sep, [facility] [address] [id number] [place] [id number] Aug, [facility] [address] [id number] [place] [phone] Aug, [facility] [address] [facility] [id number] [place] [phone] Jun, [facility] [address] [facility] [id number] [place] [id number] May, [facility] [address] [facility] [id number] [place] [phone] May, [facility] [address] [facility] [id number] [place] [address] Apr, IMMUNIZATIONS No Known Immunizations SOCIAL HISTORY Never Assessed REASON FOR VISIT PA for Desvenlafaxine ER PLAN OF CARE VITAL SIGNS MEDICATIONS Unknown [...]
--- OUTSIDE RECORDS SUMMARY | 2018-01-18 14:09 | XMS REPORT ---
Author Author RC FLORES [facility] Address [address] [place] [address] Care Team Providers Care Lubricating Engineer Name Role Phone RC FLORES Unavailable PROBLEMS Type Condition ICD9-CM Code WFM07-FT Code Onset Dates Condition Status SNOMED Code Problem Post traumatic stress disorder (PTSD) F43.10 Active 39404891 Problem Psychophysiological insomnia F51.04 Active 307990156 Problem Essential (primary) hypertension I10 Active 72518088 Problem Bilateral low back pain without sciatica, unspecified chronicity M54.5 Active 238855793 Problem Forgetfulness R68.89 Active 54021811 Problem Severe episode of recurrent major depressive disorder, without psychotic features F33.2 Active 03014342 Problem Anxiety, generalized F41.1 Active 76732675 Problem Pinched nerve in neck G58.8 Active 18732596 Problem Type 2 diabetes mellitus without complication, without long-term current use of insulin E11.9 Active 638766305 Problem Vaginal dryness, menopausal N95.1 Active 30514947 Problem Mild intermittent asthma with acute exacerbation J45.21 Active 048162920 Problem Chronic nonintractable headache, unspecified headache type R51 Active 32607357 Problem Vitreous floaters of right eye H43.391 Active 94721256 ALLERGIES No Information ENCOUNTERS Encounter Location Date Diagnosis [facility] [address] [facility] [id number], [place] [address] Sep, [facility] [id number] [address] Aug, Dental examination Z01.20 [facility] [address] [id number] [place] [address] Aug, 2018 Dental caries on smooth surface penetrating into pulp K02.63 and Encounter for dental examination Z01.20 [facility] [address] [id number] [place] [address] Aug, Dental examination Z01.20 [facility] [address] [id number] [place] [address] Aug, [facility] [id number] [id number] July, Other infective chronic otitis externa of right ear H60.391 [facility] [address] [id number] [place] [address] July, [facility] [id number], [place] [id number] July, Other infective acute otitis externa of right ear H60.391 and Vaginal dryness, menopausal N95.1 [facility] [address] [id number] [id number] July, [facility] [place] [address] [facility] [address] [id number][place] [id number] July, Dental examination Z01.20 [facility] [place] [address] [facility] [address] [id number][place] [id number] July, [facility] [id number] [place] [address] Jun, Post traumatic stress disorder (PTSD) F43.10 ; Severe episode of recurrent major depressive disorder, without psychotic features F33.2 and Psychophysiological insomnia F51.04 [facility] [id number], [place] [id number] May, Cervicalgia M54.2 [facility] [id number] [place] [address] May, Pinched nerve in neck G58.8 [facility] [id number] [place] [address] Apr, Post traumatic stress disorder (PTSD) F43.10 ; Severe episode of recurrent major depressive disorder, without psychotic features F33.2 and Psychophysiological insomnia F51.04 [facility] [id number] [place] [id number] Apr, [address] [place] [phone] Apr, Mild intermittent asthma with acute exacerbation J45.21 [facility] [id number] [place] [id number] Apr, Chronic nonintractable headache, unspecified headache type R51 [place] [address] [address] Mar, Post traumatic stress disorder (PTSD) F43.10 ; Severe episode of recurrent major depressive disorder, without psychotic features F33.2 and Psychophysiological insomnia F51.04 [place] [id number] [place] [address] Mar, Post traumatic stress disorder (PTSD) F43.10 [place] [id number] [place] [id number] Mar, Type 2 diabetes mellitus without complication, without long-term current use of insulin E11.9 ; Bilateral low back pain without sciatica, unspecified chronicity M54.5 and Chronic nonintractable headache, unspecified headache type R51 [place] [id number] [place] [address] Feb, [address] [place] [id number] Jan, Vitreous floaters of right eye H43.391 [address] [id number] [place] [address] [phone] Jan, [place] [id number] [place] [address] Nov, Post traumatic stress disorder (PTSD) F43.10 ; Severe episode of recurrent major depressive disorder, without psychotic features F33.2 ; Psychophysiological insomnia F51.04 and Homeless Z59.0 [place] [id number] [place] [address] Oct, Post traumatic stress disorder (PTSD) F43.10 ; Severe episode of recurrent major depressive disorder, without psychotic features F33.2 and Psychophysiological insomnia F51.04 [facility] [id number] [place] [id number] Oct, Vaginal dryness, menopausal N95.1 and Dyspareunia in female N94.10 [facility] [id number] [place] [id number] Oct, [facility] [address] [phone] Aug, Post traumatic stress disorder (PTSD) F43.10 ; Severe episode of recurrent major depressive disorder, without psychotic features F33.2 and Psychophysiological insomnia F51.04 [facility] [id number] [place] [id number] Aug, [facility] [id number] [place] [address] [id number] Aug, Well woman exam Z01.419 and Vaginal dryness, menopausal N95.1 [facility] [id number] [place] [address] July, [facility] [id number] [place] [address] July, [facility] [id number] [place] [address] July, Post traumatic stress disorder (PTSD) F43.10 ; Severe episode of recurrent major depressive disorder, without psychotic features F33.2 and Psychophysiological insomnia F51.04 [facility] [id number] [place] [address] [id number] July, Mass of left lung R91.8 [facility] [id number] [place] [address]67 [address] Jun, Shortness of breath R06.02 ; Wheezing R06.2 and Mild intermittent asthma with acute exacerbation J45.21 [facility] [id number] [place] [address] May, Post traumatic stress disorder (PTSD) F43.10 ; Severe episode of recurrent major depressive disorder, without psychotic features F33.2 ; Essential (primary) hypertension I10 and Psychophysiological insomnia F51.04 [facility] [id number] [place] [id number] May, 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 and Headache, unspecified headache type R51 [facility] [id number] [place] [address] 84420- [address] Apr, [facility] [id number] [place] [address] 44572[address] 5765 Apr, Post traumatic stress disorder (PTSD) F43.10 ; Severe episode of recurrent major depressive disorder, without psychotic features F33.2 ; Essential (primary) hypertension I10 and Psychophysiological insomnia F51.04 [place] [address] [place] [address]1437- [address] Mar, Post traumatic stress disorder (PTSD) F43.10 and Severe episode of recurrent major depressive disorder, without psychotic features F33.2 [facility] [address] [place] [address] 80686[address] 84[address] Feb, Post traumatic stress disorder (PTSD) F43.10 [place] [id number] [place] [address] 11813[address] Feb, Post traumatic stress disorder (PTSD) F43.10 and Severe episode of recurrent major depressive disorder, without psychotic features F33.2 [facility] [id number][place] [id number] Feb, Anxiety, generalized F41.1 and Severe episode of recurrent major depressive disorder, without psychotic features F33.2 [facility] [address], [place] [address] Feb, Severe episode of recurrent major depressive disorder, without psychotic features F33.2 and Anxiety, generalized F41.1 [facility] [address] [id number], [place] [phone] Aug, [facility] [id number] [place] [address] [id number] May, Forgetfulness R68.89 and Bilateral low back pain without sciatica, unspecified chronicity M54.5 [facility] [id number], [place] [id number] Apr, Forgetfulness R68.89 [facility] [address] [id number] [phone] Jan, Irritant contact dermatitis due to other chemical products L24.5 [facility] [id number], [place] [id number] Sep, Nausea vomiting and diarrhea 787.91 [facility] [id number] [place] [address] 89884- 8[address] Jun, [facility] [id number] [place] [address] 41272- 9386 Jun, [facility] [id number] [place] [address] 41341- 2306 July, [facility] [id number], [place] [id number] July, [facility] [id number], [place] [id number] Jun, [facility] [id number] [place] [address] 26878- 3586 Jun, [facility] [id number], [place] [id number] May, [facility] [address]65100[place], [place] [address] May, [facility] [id number], [place] [id number] May, [facility] [id number] [place] [address] 98999- 3156 May, [facility] [address] [id number], [place] [address] May, [facility] [id number] [place] [address] 66365- 8486 May, [facility] [address] [facility] [id number] [place] [id number] Apr, [facility] [address]65100[place], [place] [address] Apr, [facility] [address] [facility] [id number] [place] [id number] Apr, [facility] [address]65100[place], [place] [address] Apr, [facility] [address] [facility] [id number] [place] [id number] Apr, [facility] [address]65100[place], [place] [address] Apr, [facility] [address] [id number], [place] [id number] Apr, [facility] [address]65100[place], [place] [address] Apr, [facility] [id number], [place] [id number] Apr, [facility] [address]65100[place], [place] [address] Apr, [facility] [address]65100[place], [place] [address] Jan, [facility] [address]65100[place], [place] [address] Jan, [facility] [address] [facility] [id number], [place] [id number] Dec, [facility] [address] [id number] [place] [id number] Oct, [facility] [address] [id number] [place] [id number] Sep, [facility] [address] [id number] [place] [id number] Aug, [facility] [address] [id number] [place] [id number] Aug, [facility] [address] [facility] [id number] [place] [id number] Jun, [facility] [address] [facility] [id number] [place] [id number] May, [facility] [address] [facility] [id number] [place] [phone] May, [facility] [address] [facility] [id number] [place] [address] Apr, IMMUNIZATIONS No Known Immunizations SOCIAL HISTORY Never Assessed REASON FOR VISIT med change PLAN OF CARE VITAL SIGNS MEDICATIONS Medication Instructions Dosage Frequency Start Date End Date Duration Status Ventolin HFA 108 (90 Base) MCG/ACT Inhalation [...]
--- OUTSIDE RECORDS SUMMARY | 2018-01-18 14:09 | XMS REPORT ---
Author Author SPENCER KOCH Organization [facility] Address [address] [place] [address] Care Team Providers Care Device Sales Consultant Name Role Phone SPENCER KOCH Unavailable PROBLEMS Type Condition ICD9-CM Code FKQ67-DF Code Onset Dates Condition Status SNOMED Code Problem Bilateral low back pain without sciatica, unspecified chronicity M54.5 Active 874734519 Problem Severe episode of recurrent major depressive disorder, without psychotic features F33.2 Active 91561181 Problem Forgetfulness R68.89 Active 98894197 Problem Effusion of ankle and foot joint 719.07 Active 5229429 Problem Asthma, unspecified, unspecified status 493.90 Active 19556794 Problem Chronic rhinitis 472.0 Active 66527068 Problem Essential hypertension, benign 401.1 Active 1247756 Problem Vaginal dryness, menopausal N95.1 Active 72649020 Problem Mild intermittent asthma with acute exacerbation J45.21 Active 015140676 Problem Post traumatic stress disorder (PTSD) F43.10 Active 95333451 Problem Anxiety, generalized F41.1 Active 82885296 Problem Psychophysiological insomnia F51.04 Active 729771579 Problem Essential (primary) hypertension I10 Active 19789368 ALLERGIES No Information SOCIAL HISTORY Never Assessed PLAN OF CARE VITAL SIGNS MEDICATIONS Unknown Medications RESULTS No Results PROCEDURES No Known procedures IMMUNIZATIONS No Known Immunizations MEDICAL (GENERAL) HISTORY Type Description Date Medical History hypertension Medical History type II diabetes Medical History depression Medical History acid reflux Medical History anxiety Medical History PTSD Medical History headache Medical History asthma Surgical History cholecystectomy 1979 Surgical History tonsillectomy childhood Surgical History hysterectomy, total with bilateral salpingo-oophorectomy (BSO ) 1996 Hospitalization History surgeries
--- OUTSIDE RECORDS SUMMARY | 2018-01-18 14:09 | XMS REPORT ---
Author Author RC FLORES [facility] Address [address] [place] [address] Care Team Providers Care Software Build Engineer Name Role Phone RC FLORES Unavailable PROBLEMS Type Condition ICD9-CM Code NSK05-NA Code Onset Dates Condition Status SNOMED Code Problem Bilateral low back pain without sciatica, unspecified chronicity M54.5 Active 804439167 Problem Severe episode of recurrent major depressive disorder, without psychotic features F33.2 Active 37616569 Problem Forgetfulness R68.89 Active 72903847 Problem Effusion of ankle and foot joint 719.07 Active 5858607 Problem Asthma, unspecified, unspecified status 493.90 Active 38668406 Problem Chronic rhinitis 472.0 Active 37753708 Problem Essential hypertension, benign 401.1 Active 9951060 Problem Vaginal dryness, menopausal N95.1 Active 28836536 Problem Mild intermittent asthma with acute exacerbation J45.21 Active 590828946 Problem Post traumatic stress disorder (PTSD) F43.10 Active 44521229 Problem Anxiety, generalized F41.1 Active 53167767 Problem Psychophysiological insomnia F51.04 Active 196656304 Problem Essential (primary) hypertension I10 Active 93023803 ALLERGIES No Information SOCIAL HISTORY Never Assessed PLAN OF CARE VITAL SIGNS MEDICATIONS Unknown Medications RESULTS Name Result Date Reference Range BUN 2016-08-14 BUN CREATININE, SERUM 2016-08-14 Creatinine, Serum eGFR If NonAfricn Am eGFR If Africn Am CT Scan : Chest w/ Contrast 2016-08-13 PROCEDURES Procedure Date Ordered Result Body Site ASSAY OF UREA NITROGEN August 06, 2016 ASSAY OF CREATININE August 06, 2016 IMMUNIZATIONS No Known Immunizations MEDICAL (GENERAL) HISTORY [...]
--- OUTSIDE RECORDS SUMMARY | 2018-01-18 14:09 | XMS REPORT ---
Author Author RC FLORES [facility] Address [address] [place] [address] Care Team Providers Care Site Leader Name Role Phone RC FLORES Unavailable PROBLEMS Type Condition ICD9-CM Code ZSD43-TC Code Onset Dates Condition Status SNOMED Code Problem Post traumatic stress disorder (PTSD) F43.10 Active 13177578 Problem Psychophysiological insomnia F51.04 Active 457150361 Problem Essential (primary) hypertension I10 Active 92614031 Problem Bilateral low back pain without sciatica, unspecified chronicity M54.5 Active 475419646 Problem Forgetfulness R68.89 Active 80020837 Problem Severe episode of recurrent major depressive disorder, without psychotic features F33.2 Active 32877224 Problem Anxiety, generalized F41.1 Active 58200331 Problem Pinched nerve in neck G58.8 Active 73432425 Problem Type 2 diabetes mellitus without complication, without long-term current use of insulin E11.9 Active 925381104 Problem Vaginal dryness, menopausal N95.1 Active 82445722 Problem Mild intermittent asthma with acute exacerbation J45.21 Active 482130589 Problem Chronic nonintractable headache, unspecified headache type R51 Active 20383039 Problem Vitreous floaters of right eye H43.391 Active 41718084 ALLERGIES No Information ENCOUNTERS Encounter Location Date Diagnosis [facility] [address] [facility] [id number] [address] Sep, [facility] [address] [facility] [id number] [place] [id number] July, Other infective acute otitis externa of right ear H60.391 and Vaginal dryness, menopausal N95.[address] [facility] [address] [id number] [place] [id number] July, [facility] [address] [id number] [place] [phone] July, Dental examination Z01.20 [facility] [address] [id number] [place] [id number] July, [facility] [address]65[address] [address] Jun, Post traumatic stress disorder (PTSD) F43.10 ; Severe episode of recurrent major depressive disorder, without psychotic features F33.2 and Psychophysiological insomnia F51.04 [facility] [id number] [place] [id number] May, Cervicalgia M54.2 [facility] [id number] [place] [address] May, Pinched nerve in neck G58.8 [facility] [address] [place] [address] Apr, Post traumatic stress disorder (PTSD) F43.10 ; Severe episode of recurrent major depressive disorder, without psychotic features F33.2 and Psychophysiological insomnia F51.04 [facility] [address], [place] [address] Apr, [facility] [id number] [place] [id number] Apr, Mild intermittent asthma with acute exacerbation J45.21 [facility] [id number] [place] [id number] Apr, Chronic nonintractable headache, unspecified headache type R51 [facility] [address] [place] [address] Mar, Post traumatic stress disorder (PTSD) F43.10 ; Severe episode of recurrent major depressive disorder, without psychotic features F33.2 and Psychophysiological insomnia F51.04 [facility] [address], [place] [address] Mar, Post traumatic stress disorder (PTSD) F43.10 [facility] [id number] [place] [id number] Mar, Type 2 diabetes mellitus without complication, without long-term current use of insulin E11.9 ; Bilateral low back pain without sciatica, unspecified chronicity M54.5 and Chronic nonintractable headache, unspecified headache type R51 [facility] [address] [place] [address] Feb, [facility] [id number] [place] [id number] Jan, Vitreous floaters of right eye H43.391 [facility] [address] [place] [id number] [place] [address] [id number] Jan, [facility] [address] [place] [address] [id number] [place] [address] Nov, Post traumatic stress disorder (PTSD) F43.10 ; Severe episode of recurrent major depressive disorder, without psychotic features F33.2 ; Psychophysiological insomnia F51.04 and Homeless Z59.0 [facility] [address] [place] [address] [id number] [place] [address] Oct, Post traumatic stress disorder (PTSD) F43.10 ; Severe episode of recurrent major depressive disorder, without psychotic features F33.2 and Psychophysiological insomnia F51.[address] [place] [id number] Oct, Vaginal dryness, menopausal N95.1 and Dyspareunia in female N94.10 [facility] [address] [place] [phone] Oct, [facility] [address] [place] [id number] [place] [address] Aug, Post traumatic stress disorder (PTSD) F43.10 ; Severe episode of recurrent major depressive disorder, without psychotic features F33.2 and Psychophysiological insomnia F51.04 [facility] [address] [place] [address] [id number] Aug, [facility] [address] [place] [id number] Aug, Well woman exam Z01.419 and Vaginal dryness, menopausal N95.1 [facility] [address] [id number] [address] July, [facility] [address] [place] [address] July, [facility] [address] [place] [id number] [place] [address] July, Post traumatic stress disorder (PTSD) F43.10 ; Severe episode of recurrent major depressive disorder, without psychotic features F33.2 and Psychophysiological insomnia F51.04 [facility] [id number] [place] [phone] July, Mass of left lung R91.8 [facility] [address] [id number] [place] [address] Jun, Shortness of breath R06.02 ; Wheezing R06.2 and Mild intermittent asthma with acute exacerbation J45.21 [facility] [address] [place] [id number] [place] [address] May, Post traumatic stress disorder (PTSD) F43.10 ; Severe episode of recurrent major depressive disorder, without psychotic features F33.2 ; Essential (primary) hypertension I10 and Psychophysiological insomnia F51.04 [facility] [id number] [place] [id number] May, 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 [address] [place] [id number] [place] [address] Apr, Post traumatic stress disorder (PTSD) F43.10 ; Severe episode of recurrent major depressive disorder, without psychotic features F33.2 ; Essential (primary) hypertension I10 and Psychophysiological insomnia F51.04 [facility] [address], [place] [address] Mar, Post traumatic stress disorder (PTSD) F43.10 and Severe episode of recurrent major depressive disorder, without psychotic features F33.2 [facility] [address], [place] [address] Feb, Post traumatic stress disorder (PTSD) F43.10 [facility] [address] [place] [id number] [place] [address] Feb, Post traumatic stress disorder (PTSD) F43.10 and Severe episode of recurrent major depressive disorder, without psychotic features F33.2 [facility] [id number] [place] [address] [phone] Feb, Anxiety, generalized F41.1 and Severe episode of recurrent major depressive disorder, without psychotic features F33.2 [facility] [id number] [place] [address] Feb, Severe episode of recurrent major depressive disorder, without psychotic features F33.2 and Anxiety, generalized F41.1 [facility] [id number] [place] [address] [id number] Aug, [facility] [address] [id number] [place] [address] [phone] May, Forgetfulness R68.89 and Bilateral low back pain without sciatica, unspecified chronicity M54.5 [facility] [address] [id number] [place] [address] [id number] Apr, Forgetfulness R68.89 [facility] [id number] [place] [address] [id number] Jan, Irritant contact dermatitis due to other chemical products L24.5 [facility] [address] [id number] [place] [address] [id number] Sep, Nausea vomiting and diarrhea 787.91 [facility] [address], [place] [address] Jun, [facility] [address] [place] [id number] [place] [address]- [address] Jun, [facility] [address] [id number] [place] [address]- [address] July, [facility] [id number] [place] [address], [place] [phone] July, [facility] [address] [id number] [place] [id number] Jun, [facility] [address] [facility] [id number] [address] Jun, [facility] [address] [facility] [id number] [place] [id number] May, [facility] [address] [facility] [id number] [address] May, [facility] [address] [facility] [id number] [place] [id number] May, [facility] [address], [place] [address] May, [facility] [address], [place] [address] May, [facility] [address], [place] [address] May, [facility] [address] [place] [id number] [place] [id number] Apr, [facility] [address] [address] Apr, [facility] [address] [place] [id number] [place] [id number] Apr, [facility] [address] [place] [id number], [place] [address] Apr, [facility] [address] [facility] [id number] [place] [id number] Apr, [facility] [address] [facility] [id number], [place] [address] Apr, [facility] [address] [facility] [id number] [place] [id number] Apr, [facility] [address] [place] [address] [id number], [place] [address] Apr, [facility] [id number] [place] [id number] Apr, [facility] [address], [place] [address] Apr, [facility] [address], [place] [address] Jan, [facility] [address], [place] [address] Jan, [facility] [id number] [place] [id number] Dec, [facility] [id number] [place] [id number] Oct, [facility] [id number] [place] [id number] Sep, [facility] [id number] [place] [id number] Aug, [facility] [id number] [place] [id number] Aug, [facility] [id number] [place] [id number] Jun, [facility] [id number] [place] [id number] May, [facility] [id number] [place] [id number] May, [facility] [address] [place] [address] [id number], [place] [address] 2546 Apr, IMMUNIZATIONS No Known Immunizations SOCIAL HISTORY Never Assessed REASON FOR VISIT Right eye c/o PLAN OF CARE VITAL SIGNS MEDICATIONS Unknown [...]
--- OUTSIDE RECORDS SUMMARY | 2018-01-18 14:10 | XMS REPORT ---
Author Author RC FLORES [facility] Address [address] [place] [address] Care Team Providers Care Refueler Name Role Phone RC FLORES Unavailable PROBLEMS Type Condition ICD9-CM Code AEQ45-QY Code Onset Dates Condition Status SNOMED Code Problem Bilateral low back pain without sciatica, unspecified chronicity M54.5 Active 920291172 Problem Severe episode of recurrent major depressive disorder, without psychotic features F33.2 Active 08058212 Problem Forgetfulness R68.89 Active 71670852 Problem Effusion of ankle and foot joint 719.07 Active 3675859 Problem Asthma, unspecified, unspecified status 493.90 Active 93356527 Problem Chronic rhinitis 472.0 Active 11552832 Problem Essential hypertension, benign 401.1 Active 4438936 Problem Vaginal dryness, menopausal N95.1 Active 03511212 Problem Mild intermittent asthma with acute exacerbation J45.21 Active 413224636 Problem Post traumatic stress disorder (PTSD) F43.10 Active 38116022 Problem Anxiety, generalized F41.1 Active 05644411 Problem Psychophysiological insomnia F51.04 Active 621287419 Problem Essential (primary) hypertension I10 Active 40477559 ALLERGIES No Information SOCIAL HISTORY Never Assessed [...]
--- OUTSIDE RECORDS SUMMARY | 2018-01-18 14:10 | XMS REPORT ---
Author Author GISELLA VAN Organization [facility] Address [address] [place] [address] Care Team Providers Care Client Support Administrator Name Role Phone GISELLA VAN Unavailable PROBLEMS Type Condition ICD9-CM Code KSH67-SL Code Onset Dates Condition Status SNOMED Code Problem Post traumatic stress disorder (PTSD) F43.10 Active 76460854 Problem Psychophysiological insomnia F51.04 Active 714581374 Problem Essential (primary) hypertension I10 Active 90498022 Problem Bilateral low back pain without sciatica, unspecified chronicity M54.5 Active 285053788 Problem Forgetfulness R68.89 Active 88345723 Problem Severe episode of recurrent major depressive disorder, without psychotic features F33.2 Active 68523322 Problem Anxiety, generalized F41.1 Active 04601911 Problem Pinched nerve in neck G58.8 Active 69894916 Problem Type 2 diabetes mellitus without complication, without long-term current use of insulin E11.9 Active 193703016 Problem Vaginal dryness, menopausal N95.1 Active 07763458 Problem Mild intermittent asthma with acute exacerbation J45.21 Active 996448085 Problem Chronic nonintractable headache, unspecified headache type R51 Active 13314561 Problem Vitreous floaters of right eye H43.391 Active 43420412 ALLERGIES Substance Reaction Event Type Date Status Penicillin V Potassium anaphylaxis Drug Allergy Oct, Active ENCOUNTERS Encounter Location Date Diagnosis [facility] [address] [facility] [id number], [place] [address] Sep, [facility] [address] [facility] [id number], [place] [address] Jun, Post traumatic stress disorder (PTSD) F43.10 ; Severe episode of recurrent major depressive disorder, without psychotic features F33.2 and Psychophysiological insomnia F51.04 [facility] [address] [facility] [id number] [id number] May, Cervicalgia M54.2 [facility] [id number] [place] [address] May, Pinched nerve in neck G58.8 [facility] [id number] [place] [address] Apr, Post traumatic stress disorder (PTSD) F43.10 ; Severe episode of recurrent major depressive disorder, without psychotic features F33.2 and Psychophysiological insomnia F51.04 [facility] [id number] [place] [address] Apr, [facility] [id number] [place] [phone] Apr, Mild intermittent asthma with acute exacerbation J45.21 [facility] [id number] [place] [address] [id number] Apr, Chronic nonintractable headache, unspecified headache type R51 [facility] [id number] [place] [address] Mar, Post traumatic stress disorder (PTSD) F43.10 ; Severe episode of recurrent major depressive disorder, without psychotic features F33.2 and Psychophysiological insomnia F51.04 [facility] [address] [place] [address] Mar, Post traumatic stress disorder (PTSD) F43.10 [facility] [id number] [place] [id number] Mar, Type 2 diabetes mellitus without complication, without long-term current use of insulin E11.9 ; Bilateral low back pain without sciatica, unspecified chronicity M54.5 and Chronic nonintractable headache, unspecified headache type R51 [facility] [id number] [place] [address]99[address] Feb, [facility] [id number] [place] [address] [id number] Jan, Vitreous floaters of right eye H43.391 [facility] [address] [id number] [id number] Jan, [facility] [id number] [place] [address] Nov, Post traumatic stress disorder (PTSD) F43.10 ; Severe episode of recurrent major depressive disorder, without psychotic features F33.2 ; Psychophysiological insomnia F51.04 and Homeless Z59.0 [place] [id number] [place] [address] Oct, Post traumatic stress disorder (PTSD) F43.10 ; Severe episode of recurrent major depressive disorder, without psychotic features F33.2 and Psychophysiological insomnia F51.04 [facility] [id number] [place] [address] [id number] Oct, Vaginal dryness, menopausal N95.1 and Dyspareunia in female N94.10 [facility] [id number] [place] [address] [id number] Oct, [place] [address] [place] [address] Aug, Post traumatic stress disorder (PTSD) F43.10 ; Severe episode of recurrent major depressive disorder, without psychotic features F33.2 and Psychophysiological insomnia F51.04 [facility] [id number] [place] [address] [id number] Aug, [facility] [id number] [place] [address] [id number] Aug, Well woman exam Z01.419 and Vaginal dryness, menopausal N95.1 [facility] [address] [address] July, [place] [id number] [place] [address] July, [facility] [address] [place] [address] 92185[address] July, Post traumatic stress disorder (PTSD) F43.10 ; Severe episode of recurrent major depressive disorder, without psychotic features F33.2 and Psychophysiological insomnia F51.04 [facility] [id number] [place] [address] [phone] July, Mass of left lung R91.8 [facility] [id number] [place] [phone] Jun, Shortness of breath R06.02 ; Wheezing R06.2 and Mild intermittent asthma with acute exacerbation J45.21 [facility] [address] [address] May, Post traumatic stress disorder (PTSD) F43.10 ; Severe episode of recurrent major depressive disorder, without psychotic features F33.2 ; Essential (primary) hypertension I10 and Psychophysiological insomnia F51.04 [facility] [id number] [place] [address] [id number] May, 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 and Headache, unspecified headache type R51 [facility] [address] [address] Apr, [facility] [address] [address] Apr, Post traumatic stress disorder (PTSD) F43.10 ; Severe episode of recurrent major depressive disorder, without psychotic features F33.2 ; Essential (primary) hypertension I10 and Psychophysiological insomnia F51.04 [facility] [id number] [place] [address]40- 280[address] Mar, Post traumatic stress disorder (PTSD) F43.10 and Severe episode of recurrent major depressive disorder, without psychotic features F33.2 [facility] [id number] [place] [address]21[address] Feb, Post traumatic stress disorder (PTSD) F43.10 [place] [facility] [id number] [place] [address] 94184- [address] Feb, Post traumatic stress disorder (PTSD) F43.10 and Severe episode of recurrent major depressive disorder, without psychotic features F33.2 [facility] [id number] [place] [address] [id number] Feb, Anxiety, generalized F41.1 and Severe episode of recurrent major depressive disorder, without psychotic features F33.2 [facility] [id number] [place] [address]40- [address] Feb, Severe episode of recurrent major depressive disorder, without psychotic features F33.2 and Anxiety, generalized F41.1 [facility] [id number] [place] [address] [phone] Aug, [facility] [address] [id number] May, Forgetfulness R68.89 and Bilateral low back pain without sciatica, unspecified chronicity M54.5 [facility] [id number] [place] [address] [phone] Apr, Forgetfulness R68.89 [facility] [id number] [place] [address] [id number] Jan, Irritant contact dermatitis due to other chemical products L24.5 [facility] [id number] [place] [address] [id number] Sep, Nausea vomiting and diarrhea 787.91 [facility] [id number] [place] [address] 47856- [address] Jun, [facility] [id number] [place] [address] 52203- [address] Jun, [facility] [id number] [place] [address]4742 2546 July, [facility] [id number] [place] [address] [phone] July, [facility] [id number] [place] [address] [phone] Jun, [facility] [id number] [place] [address] [phone] Jun, [facility] [id number] [place] [address] [phone] May, [facility] [id number] [place] [address] 17552- [address] May, [facility] [address] [id number] [place] [phone] May, [facility] [address] [facility] [id number], [place] [address] May, [facility] [place] [facility] [address] [facility] [id number] [place] [address] May, [facility] [address] [facility] [id number], [place] [address] May, [facility] [address] [id number] [place] [phone] Apr, [facility] [address] [facility] [id number], [place] [address] Apr, [facility] [address] [id number] [place] [phone] Apr, [facility] [address] [facility] [id number], [place] [address] Apr, [facility] [address] [id number] [place] [id number] Apr, [facility] [address] [facility] [id number], [place] [address] Apr, [facility] [address] [id number] [place] [id number] Apr, [facility] [address] [facility] [id number], [place] [address] Apr, [facility] [address] [id number][place] [phone] Apr, [facility] [place] [facility] [address] [facility] [id number], [place] [address] Apr, [facility] [place] [facility] [address] [facility] [id number], [place] [address] Jan, [facility] [place] [facility] [address] [facility] [id number], [place] [address] Jan, [facility] [address] [facility] [id number][place] [phone] Dec, [facility] [address] [id number] [phone] Oct, [facility] [address] [id number][place] [phone] Sep, [facility] [address] [id number][place] [phone] Aug, [facility] [address] [id number], [place] [phone] Aug, [facility] [address] [facility] [id number][place] [phone] Jun, [facility] [address] [facility] [id number][place] [phone] May, [facility] [address] [facility] [id number][place] [phone] May, [facility] [address] [facility] [id number], [place] [address] Apr, IMMUNIZATIONS No Known Immunizations SOCIAL HISTORY Never Assessed REASON FOR VISIT Pt c/o vaginal dryness and soreness, recently become sexually active again [facility] [place] PLAN OF CARE Activity Details Follow Up 4 Weeks Reason:CHM Vaginal dryness. VITAL SIGNS Height 64.75 in 2016-11-09 Weight 241.8 lbs 2016-11-09 Temperature 96.9 degrees Fahrenheit 2016-11-09 Heart Rate 74 bpm 2016-11-09 Respiratory Rate 18 2016-11-09 BMI 40.54 kg/m2 2016-11-09 Blood pressure systolic 128 mmHg 2016-11-09 Blood pressure diastolic 70 mmHg 2016-11-09 MEDICATIONS Medication Instructions Dosage Frequency Start Date End Date Duration Status Premarin 0.625 MG/GM Vaginal Daily for Three Weeks, 1 Week off then every other day for 3 weeks, then twice weekly 1 gram Active ProAir HFA 108 (90 Base) MCG/ACT Inhalation every 4 hrs 2 puffs as needed 4h Jun, 12 months Active Trazodone HCl 100 mg Orally Once a day 1/2 tablet at bedtime 24h 30 days Active Ibuprofen 800 MG Orally Three times a day 1 tablet 8h May, Active Pristiq 100 mg Orally Once a day 1 tablet 24h 30 days Active Rexulti 2 MG Orally Once a day 1 tablet 24h 30 days Active Ambien 5 mg [...]
--- OUTSIDE RECORDS SUMMARY | 2018-01-18 14:10 | XMS REPORT ---
Author Author CHRISTIAN RAYMOND [facility] Address [address] [place] [address] Care Team Providers Care Etcher Aircraft Name Role Phone FLOR RAYMONDJONO Unavailable PROBLEMS Type Condition ICD9-CM Code FEY70-RT Code Onset Dates Condition Status SNOMED Code Problem Bilateral low back pain without sciatica, unspecified chronicity M54.5 Active 787948847 Problem Severe episode of recurrent major depressive disorder, without psychotic features F33.2 Active 99406050 Problem Forgetfulness R68.89 Active 37014157 Problem Effusion of ankle and foot joint 719.07 Active 3500908 Problem Asthma, unspecified, unspecified status 493.90 Active 68608291 Problem Chronic rhinitis 472.0 Active 89034794 Problem Essential hypertension, benign 401.1 Active 5869185 Problem Vaginal dryness, menopausal N95.1 Active 36484104 Problem Mild intermittent asthma with acute exacerbation J45.21 Active 412508721 Problem Post traumatic stress disorder (PTSD) F43.10 Active 79624909 Problem Anxiety, generalized F41.1 Active 07845333 Problem Psychophysiological insomnia F51.04 Active 802359951 Problem Essential (primary) hypertension I10 Active 49273924 ALLERGIES Unknown Allergies SOCIAL HISTORY No smoking Hx information available PLAN OF CARE Activity Details Follow Up 4 Weeks Reason: VITAL SIGNS Height 64.75 in 2016-04-15 Weight 232.1 lbs 2016-04-15 Heart Rate 76 bpm 2016-04-15 Respiratory Rate 20 2016-04-15 BMI 38.92 kg/m2 2016-04-15 Blood pressure systolic 128 mmHg 2016-04-15 Blood pressure diastolic 84 mmHg 2016-04-15 MEDICATIONS Medication Instructions Dosage Frequency Start Date End Date Duration Status Trazodone HCl 100 mg Orally Once a day 1/2 tablet at bedtime 24h 30 days Active Ibuprofen 800 MG Orally Three times a day 1 tablet 8h May, Active Pristiq 50 mg Orally Once a day 1 tablet 24h 30 days Active Rexulti 1 MG Orally Once a day 1 tablet 24h 30 days Active Ambien 5 mg Orally Once a day 1 tablet at bedtime 24h 30 days Active RESULTS No Results PROCEDURES Procedure Date Ordered Related Diagnosis Body Site Office Visit, Est Pt., Level 2 Apr 15, 2016 IMMUNIZATIONS No Known Immunizations
--- OUTSIDE RECORDS SUMMARY | 2018-01-18 14:10 | XMS REPORT ---
Author Author [facility]D [facility] Address [address] [place] [address] Care Team Providers Care Block Press Operator Name Role Phone FLOR RAYMONDJONO Unavailable PROBLEMS Type Condition ICD9-CM Code SKB61-KA Code Onset Dates Condition Status SNOMED Code Problem Bilateral low back pain without sciatica, unspecified chronicity M54.5 Active 002551653 Problem Severe episode of recurrent major depressive disorder, without psychotic features F33.2 Active 25290388 Problem Forgetfulness R68.89 Active 73953367 Problem Effusion of ankle and foot joint 719.07 Active 7133214 Problem Asthma, unspecified, unspecified status 493.90 Active 19936112 Problem Chronic rhinitis 472.0 Active 43944090 Problem Essential hypertension, benign 401.1 Active 3541283 Problem Vaginal dryness, menopausal N95.1 Active 01404244 Problem Mild intermittent asthma with acute exacerbation J45.21 Active 120455479 Problem Post traumatic stress disorder (PTSD) F43.10 Active 39827520 Problem Anxiety, generalized F41.1 Active 09736078 Problem Psychophysiological insomnia F51.04 Active 602235785 Problem Essential (primary) hypertension I10 Active 25630678 ALLERGIES Substance Reaction Event Type Date Status Penicillin V Potassium anaphylaxis Drug Allergy July, Active SOCIAL HISTORY Never Assessed PLAN OF CARE Activity Details Follow Up 6 Weeks Reason: VITAL SIGNS Height 64.75 in 2016-08-07 Weight 236.6 lbs 2016-08-07 Heart Rate 76 bpm 2016-08-07 Respiratory Rate 18 2016-08-07 BMI 39.67 kg/m2 2016-08-07 Blood pressure systolic 140 mmHg 2016-08-07 Blood pressure diastolic 80 mmHg 2016-08-07 MEDICATIONS Medication Instructions Dosage Frequency Start Date End Date Duration Status ProAir HFA 108 (90 Base) MCG/ACT Inhalation every 4 hrs 2 puffs as needed 4h Jun, 12 months Active Ambien 5 mg Orally Once a day 1 tablet at bedtime 24h 30 days Active Clonidine HCl 0.1 MG Orally Once a day PRN 1 tablet July, 30 day(s) Active Pristiq 100 mg Orally Once a day 1 tablet 24h 30 days Active Trazodone HCl 100 mg Orally Once a day 1/2 tablet at bedtime 24h 30 days Active Rexulti 1 MG Orally Once a day 1 tablet 24h 30 days Active Ibuprofen 800 MG [...]
--- OUTSIDE RECORDS SUMMARY | 2018-01-18 14:10 | XMS REPORT ---
Author Author CHRISTIAN RAYMOND [facility] Address [address] [place] [address] Care Team Providers Care Barrel Inspector Name Role Phone MANDI, CHRISTIAN Unavailable PROBLEMS Type Condition ICD9-CM Code TFS94-ZO Code Onset Dates Condition Status SNOMED Code Problem Post traumatic stress disorder (PTSD) F43.10 Active 68452126 Problem Psychophysiological insomnia F51.04 Active 582078597 Problem Essential (primary) hypertension I10 Active 43060846 Problem Bilateral low back pain without sciatica, unspecified chronicity M54.5 Active 152792011 Problem Forgetfulness R68.89 Active 65435931 Problem Severe episode of recurrent major depressive disorder, without psychotic features F33.2 Active 88783248 Problem Anxiety, generalized F41.1 Active 30984785 Problem Pinched nerve in neck G58.8 Active 76757584 Problem Type 2 diabetes mellitus without complication, without long-term current use of insulin E11.9 Active 676217119 Problem Vaginal dryness, menopausal N95.1 Active 59123468 Problem Mild intermittent asthma with acute exacerbation J45.21 Active 776477118 Problem Chronic nonintractable headache, unspecified headache type R51 Active 37111493 Problem Vitreous floaters of right eye H43.391 Active 77991185 ALLERGIES No Information ENCOUNTERS Encounter Location Date Diagnosis [facility] [address] [facility] [id number] [address] Sep, [facility] [address] [id number], [place] [address] Jun, Post traumatic stress disorder (PTSD) F43.10 ; Severe episode of recurrent major depressive disorder, without psychotic features F33.2 and Psychophysiological insomnia F51.04 [facility] [address] [facility] [id number] [id number] May, Cervicalgia M54.2 [facility] [id number] [place] [address] May, Pinched nerve in neck G58.8 [facility] [address] [address] Apr, Post traumatic stress disorder (PTSD) F43.10 ; Severe episode of recurrent major depressive disorder, without psychotic features F33.2 and Psychophysiological insomnia F51.04 [place] [address] [address] Apr, [facility] [id number] [place] [address] [id number] Apr, Mild intermittent asthma with acute exacerbation J45.[address] [id number] Apr, Chronic nonintractable headache, unspecified headache type R51 [place] [address] [address] Mar, Post traumatic stress disorder (PTSD) F43.10 ; Severe episode of recurrent major depressive disorder, without psychotic features F33.2 and Psychophysiological insomnia F51.04 [place] [id number] [place] [address] Mar, Post traumatic stress disorder (PTSD) F43.10 [place] [id number] [place] [phone] Mar, Type 2 diabetes mellitus without complication, without long-term current use of insulin E11.9 ; Bilateral low back pain without sciatica, unspecified chronicity M54.5 and Chronic nonintractable headache, unspecified headache type R51 [place] [id number] [place] [address] Feb, [facility] [address] [id number] Jan, Vitreous floaters of right eye H43.391 [facility] [id number] [place] [id number] Jan, [place] [address], [place] [address] Nov, Post traumatic stress disorder (PTSD) F43.10 ; Severe episode of recurrent major depressive disorder, without psychotic features F33.2 ; Psychophysiological insomnia F51.04 and Homeless Z59.0 [facility] [id number] [place] [address] Oct, Post traumatic stress disorder (PTSD) F43.10 ; Severe episode of recurrent major depressive disorder, without psychotic features F33.2 and Psychophysiological insomnia F51.04 [facility] [id number] [place] [id number] Oct, Vaginal dryness, menopausal N95.1 and Dyspareunia in female N94.10 [facility] [id number] [place] [phone] Oct, [facility] [id number] [place] [address] Aug, Post traumatic stress disorder (PTSD) F43.10 ; Severe episode of recurrent major depressive disorder, without psychotic features F33.2 and Psychophysiological insomnia F51.04 [facility] [id number] [place] [address] [id number] Aug, [facility] [id number] [place] [address] [phone] Aug, Well woman exam Z01.419 and Vaginal dryness, menopausal N95.1 [facility] [id number] [place] [address] July, [facility] [id number] [place] [address] July, [facility] [id number] [place] [address] July, Post traumatic stress disorder (PTSD) F43.10 ; Severe episode of recurrent major depressive disorder, without psychotic features F33.2 and Psychophysiological insomnia F51.04 [facility] [id number] [place] [address] [id number] July, Mass of left lung R91.8 [facility] [id number] [place] [address] Jun, Shortness of breath R06.02 ; Wheezing R06.2 and Mild intermittent asthma with acute exacerbation J45.21 [facility] [id number] [place] [address] May, Post traumatic stress disorder (PTSD) F43.10 ; Severe episode of recurrent major depressive disorder, without psychotic features F33.2 ; Essential (primary) hypertension I10 and Psychophysiological insomnia F51.04 [facility] [id number] [place] [address] [phone] May, 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 and Headache, unspecified headache type R51 [facility] [id number] [place] [address] Apr, [facility] [address] [address] Apr, Post traumatic stress disorder (PTSD) F43.10 ; Severe episode of recurrent major depressive disorder, without psychotic features F33.2 ; Essential (primary) hypertension I10 and Psychophysiological insomnia F51.04 [facility] [id number] [place] [address] Mar, Post traumatic stress disorder (PTSD) F43.10 and Severe episode of recurrent major depressive disorder, without psychotic features F33.2 [facility] [id number] [place] [address] Feb, Post traumatic stress disorder (PTSD) F43.10 [place] [id number] [place] [address] Feb, Post traumatic stress disorder (PTSD) F43.10 and Severe episode of recurrent major depressive disorder, without psychotic features F33.2 [facility] [address] [place] [address] [id number] Feb, Anxiety, generalized F41.1 and Severe episode of recurrent major depressive disorder, without psychotic features F33.2 [facility] [address], [place] [address] Feb, Severe episode of recurrent major depressive disorder, without psychotic features F33.2 and Anxiety, generalized F41.1 [facility] [id number] [place] [address] [id number] Aug, [facility] [id number] [place] [phone] May, Forgetfulness R68.89 and Bilateral low back pain without sciatica, unspecified chronicity M54.5 [facility] [id number] [place] [address] [phone] Apr, Forgetfulness R68.89 [facility] [id number] [place] [address] [id number] Jan, Irritant contact dermatitis due to other chemical products L24.5 [facility] [id number] [place] [address] [phone] Sep, Nausea vomiting and diarrhea 787.91 [facility] [id number] [place] [address] Jun, [facility] [id number] [place] [address] Jun, [facility] [id number] [place] [address] July, [facility] [id number] [phone] July, [facility] [id number] [place] [address] [phone] Jun, [facility] [id number] [place] [address] Jun, [facility] [id number] [place] [address] [phone] May, [facility] [id number] [place] [id number] May, [facility] [address] [id number] [id number] May, [facility] [address] [facility] [id number], [place] [address] May, [facility] [address], [place] [address] May, [facility] [address] [id number], [place] [address] May, [facility] [address] [facility] [id number][place] [id number] Apr, [facility] [address], [place] [address] Apr, [facility] [id number] [id number] Apr, [facility] [address], [place] [address] Apr, [facility] [id number][place] [id number] Apr, [facility] [address], [place] [address] Apr, [facility] [id number][place] [id number] Apr, [facility] [id number], [place] [address] Apr, [facility] [address] [id number] [id number] Apr, [facility] [id number], [place] [address] Apr, [facility] [address], [place] [address] Jan, [facility] [id number], [place] [address] Jan, [facility] [address] [id number] [id number] Dec, [facility] [address] [facility] [id number] [place] [phone] Oct, [facility] [address] [facility] [id number][place] [phone] Sep, [facility] [address] [id number] [id number] Aug, [facility] [address] [facility] [id number][place] [id number] Aug, [facility] [address] [id number][place] [id number] Jun, [facility] [address] [id number] [phone] May, [facility] [address] [id number][place] [phone] May, [facility] [address] [facility] [id number], [place] [address] Apr, IMMUNIZATIONS No Known Immunizations SOCIAL HISTORY Never Assessed REASON FOR VISIT f/u PLAN OF CARE Activity Details Follow Up 2 Months Reason: VITAL SIGNS Height 64.75 in 2016-11-13 Weight 237.5 lbs 2016-11-13 Heart Rate 76 bpm 2016-11-13 Respiratory Rate 18 2016-11-13 BMI 39.82 kg/m2 2016-11-13 Blood pressure systolic 142 mmHg 2016-11-13 Blood pressure diastolic 80 mmHg 2016-11-13 MEDICATIONS Medication Instructions Dosage Frequency Start Date End Date Duration Status Ibuprofen 800 MG Orally Three times a [...] as needed 4h Jun, 12 months Active RESULTS No Results PROCEDURES No Known [...]
--- OUTSIDE RECORDS SUMMARY | 2018-01-18 14:11 | XMS REPORT ---
Author Author [facility]STIAN RAYMOND [facility] Address [address] [place] [address] Care Team Providers Care Yarn Spinner Name Role Phone FLOR RAYMONDJONO Unavailable PROBLEMS Type Condition ICD9-CM Code XOF85-IJ Code Onset Dates Condition Status SNOMED Code Problem Bilateral low back pain without sciatica, unspecified chronicity M54.5 Active 302772442 Problem Severe episode of recurrent major depressive disorder, without psychotic features F33.2 Active 74548422 Problem Forgetfulness R68.89 Active 01974556 Problem Effusion of ankle and foot joint 719.07 Active 6745571 Problem Asthma, unspecified, unspecified status 493.90 Active 75640635 Problem Chronic rhinitis 472.0 Active 73437994 Problem Essential hypertension, benign 401.1 Active 7145432 Problem Vaginal dryness, menopausal N95.1 Active 48663736 Problem Mild intermittent asthma with acute exacerbation J45.21 Active 454579052 Problem Post traumatic stress disorder (PTSD) F43.10 Active 72703211 Problem Anxiety, generalized F41.1 Active 08175957 Problem Psychophysiological insomnia F51.04 Active 383271940 Problem Essential (primary) hypertension I10 Active 37729056 ALLERGIES Substance Reaction Event Type Date Status Penicillin V Potassium anaphylaxis Drug Allergy Apr, Active SOCIAL HISTORY Never Assessed PLAN OF CARE Activity Details Follow Up 4 Weeks Reason: VITAL SIGNS Height 64.75 in 2016-05-15 Weight 236.0 lbs 2016-05-15 Heart Rate 68 bpm 2016-05-15 Respiratory Rate 20 2016-05-15 BMI 39.57 kg/m2 2016-05-15 Blood pressure systolic 141 mmHg 2016-05-15 Blood pressure diastolic 86 mmHg 2016-05-15 MEDICATIONS Medication Instructions Dosage Frequency Start Date End Date Duration Status Belsomra 10 mg Orally Once a day 1 tablet at bedtime as needed 24h Apr, 30 days Active Ambien 5 mg Orally Once a day 1 tablet at bedtime 24h 30 days Active Trazodone HCl 100 mg Orally Once a day 1/2 tablet at bedtime 24h 30 days Active Pristiq 100 MG Orally Once a day 1 tablet [...]
--- OUTSIDE RECORDS SUMMARY | 2018-01-18 14:11 | XMS REPORT ---
Author Author CHRISTIAN RAYMOND [facility] Address [address] [place] [address] Care Team Providers Care Specialized Developer Name Role Phone MANDI, DAWJONO Unavailable PROBLEMS Type Condition ICD9-CM Code XXJ03-MX Code Onset Dates Condition Status SNOMED Code Problem Post traumatic stress disorder (PTSD) F43.10 Active 89642962 Problem Psychophysiological insomnia F51.04 Active 578194617 Problem Essential (primary) hypertension I10 Active 34225065 Problem Bilateral low back pain without sciatica, unspecified chronicity M54.5 Active 763465124 Problem Forgetfulness R68.89 Active 19799695 Problem Severe episode of recurrent major depressive disorder, without psychotic features F33.2 Active 08098117 Problem Anxiety, generalized F41.1 Active 56287892 Problem Pinched nerve in neck G58.8 Active 90604256 Problem Type 2 diabetes mellitus without complication, without long-term current use of insulin E11.9 Active 955464851 Problem Vaginal dryness, menopausal N95.1 Active 80255834 Problem Mild intermittent asthma with acute exacerbation J45.21 Active 797202422 Problem Chronic nonintractable headache, unspecified headache type R51 Active 19877534 Problem Vitreous floaters of right eye H43.391 Active 09372787 ALLERGIES No Information ENCOUNTERS Encounter Location Date Diagnosis [facility] [address] [facility] [id number] [address] 11 Sep, 2017 [facility] [address] [id number], [place] [address] Aug, Dental caries on smooth surface penetrating into pulp K02.63 and Encounter for dental examination Z01.20 [facility] [address] [id number] [place] [address] 04 Aug, 2017 Dental examination Z01.20 [facility] [address] [id number], [place] [address] Aug, [facility] [id number] [id number] July, Other infective chronic otitis externa of right ear H60.391 [facility] [address] [id number], [place] [address] July, [facility] [id number][place] [id number] July, Other infective acute otitis externa of right ear H60.391 and Vaginal dryness, menopausal N95.1 [facility] [address] [id number][place] [id number] July, [facility] [id number][place] [id number] July, Dental examination Z01.20 [facility] [address] [facility] [address] [id number][place] [id number] July, [facility] [address] [place] [address] Jun, Post traumatic stress disorder (PTSD) F43.10 ; Severe episode of recurrent major depressive disorder, without psychotic features F33.2 and Psychophysiological insomnia F51.04 [facility] [id number][place] [id number] May, Cervicalgia M54.2 [facility] [id number] [place] [address] May, Pinched nerve in neck G58.8 [facility] [address] [place] [address] Apr, Post traumatic stress disorder (PTSD) F43.10 ; Severe episode of recurrent major depressive disorder, without psychotic features F33.2 and Psychophysiological insomnia F51.04 [facility] [address] [place] [address] Apr, [facility] [id number] [place] [id number] Apr, Mild intermittent asthma with acute exacerbation J45.21 [facility] [id number] [place] [id number] Apr, Chronic nonintractable headache, unspecified headache type R51 [place] [id number] [place] [address] Mar, Post traumatic stress disorder (PTSD) F43.10 ; Severe episode of recurrent major depressive disorder, without psychotic features F33.2 and Psychophysiological insomnia F51.04 [place] [address] [place] [address]682[address] 0252 Mar, Post traumatic stress disorder (PTSD) F43.10 [address] [place] [id number] Mar, Type 2 diabetes mellitus without complication, without long-term current use of insulin E11.9 ; Bilateral low back pain without sciatica, unspecified chronicity M54.5 and Chronic nonintractable headache, unspecified headache type R51 [place] [address] [place] [address] 84807[address]40 Feb, [place] [id number] [place] [id number] Jan, Vitreous floaters of right eye H43.[address] [place] [address] [phone] Jan, [place] [id number] [place] [address] Nov, Post traumatic stress disorder (PTSD) F43.10 ; Severe episode of recurrent major depressive disorder, without psychotic features F33.2 ; Psychophysiological insomnia F51.04 and Homeless Z59.0 [place] [id number] [place] [address]8943[address] 2987 Oct, Post traumatic stress disorder (PTSD) F43.10 ; Severe episode of recurrent major depressive disorder, without psychotic features F33.2 and Psychophysiological insomnia F51.04 [facility] [id number] [place] [id number] Oct, Vaginal dryness, menopausal N95.1 and Dyspareunia in female N94.10 [facility] [id number] [place] [address] [id number] Oct, [facility] [id number] [place] [address] [id number] 2126 Aug, Post traumatic stress disorder (PTSD) F43.10 ; Severe episode of recurrent major depressive disorder, without psychotic features F33.2 and Psychophysiological insomnia F51.04 [facility] [id number] [place] [id number] Aug, [facility] [id number] [place] [id number] Aug, Well woman exam Z01.419 and Vaginal dryness, menopausal N95.1 [facility] [address] [address] July, [place] [address] [address] July, [facility] [id number] [place] [address] 18878[address] 2482 July, Post traumatic stress disorder (PTSD) F43.10 ; Severe episode of recurrent major depressive disorder, without psychotic features F33.2 and Psychophysiological insomnia F51.04 [facility] [address] [place] [id number] July, Mass of left lung R91.8 [facility] [id number] [place] [address] Jun, Shortness of breath R06.02 ; Wheezing R06.2 and Mild intermittent asthma with acute exacerbation J45.21 [facility] [id number] [place] [address]56[address] May, Post traumatic stress disorder (PTSD) F43.10 ; Severe episode of recurrent major depressive disorder, without psychotic features F33.2 ; Essential (primary) hypertension I10 and Psychophysiological insomnia F51.04 [facility] [address] [id number] [id number] May, 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 and Headache, unspecified headache type R51 [facility] [id number] [place] [address] 42095[address] 77[address] Apr, [facility] [id number] [place] [address] 86821- 3444 Apr, Post traumatic stress disorder (PTSD) F43.10 ; Severe episode of recurrent major depressive disorder, without psychotic features F33.2 ; Essential (primary) hypertension I10 and Psychophysiological insomnia F51.04 [place] [id number] [place] [address] 93717- 2213 Mar, Post traumatic stress disorder (PTSD) F43.10 and Severe episode of recurrent major depressive disorder, without psychotic features F33.2 [place] [id number] [place] [address] 10165- 0595 Feb, Post traumatic stress disorder (PTSD) F43.10 [place] [id number] [place] [address] 82308[address] 3318 Feb, Post traumatic stress disorder (PTSD) F43.10 and Severe episode of recurrent major depressive disorder, without psychotic features F33.2 [facility] [address] [place] [address] [id number] Feb, Anxiety, generalized F41.1 and Severe episode of recurrent major depressive disorder, without psychotic features F33.2 [place] [address] [address] Feb, Severe episode of recurrent major depressive disorder, without psychotic features F33.2 and Anxiety, generalized F41.1 [facility] [id number], [place] [id number] Aug, [facility] [id number] [place] [address] [id number] May, Forgetfulness R68.89 and Bilateral low back pain without sciatica, unspecified chronicity M54.5 [facility] [address] [id number] [id number] Apr, Forgetfulness R68.89 [facility] [id number][place] [id number] Jan, Irritant contact dermatitis due to other chemical products L24.5 [facility] [id number], [place] [id number] Sep, Nausea vomiting and diarrhea 787.91 [facility] [id number] [place] [address] 97801- 2776 Jun, [facility] [address] [place] [address] 86115- 6166 Jun, [facility] [id number] [place] [address] 63020- 4896 July, [facility] [id number][place] [id number] July, [facility] [id number] [place] [address] [id number] Jun, [facility] [address]00565100[place] [address] Jun, [facility] [id number], [place] [id number] May, [facility] [address]00565100[place] [address] May, [facility] [id number], [place] [id number] May, [facility] [address]00565100[place] [address] May, [facility] [address]00565100[place] [address] May, [facility] [address]65100[place] [address] 2546 May, [facility] [id number], [place] [id number] Apr, [facility] [address]00565100[place] [address] Apr, [facility] [address] [id number][place] [id number] Apr, [facility] [address] [address]294 Apr, [facility] [address] [id number][place] [id number] Apr, [facility] [address]65[address] [address] Apr, [facility] [address] [id number][place] [id number] Apr, [facility] [address]65100[place] [address] Apr, [facility] [id number][place] [id number] Apr, [facility] [address]00565100[place] [address] 9391 Apr, [facility] [address]65100[place] [address]- 7435 Jan, [facility] [address]00565100[place] [address]- [address]26 Jan, [facility] [address] [id number], [place] [id number] Dec, [facility] [address] [id number], [place] [id number] Oct, [facility] [address] [id number], [place] [id number] Sep, [facility] [address] [id number] [place] [id number] Aug, [facility] [address] [id number][place] [id number] Aug, [facility] [address] [id number], [place] [id number] Jun, [facility] [address] [id number] [place] [id number] May, [facility] [address] [facility] [id number] [place] [id number] May, [facility] [address] [facility] [id number] [place] [address] Apr, IMMUNIZATIONS No Known Immunizations SOCIAL HISTORY Never Assessed REASON FOR VISIT ambien 04/13/2017 PLAN OF CARE VITAL SIGNS MEDICATIONS Medication [...]
--- OUTSIDE RECORDS SUMMARY | 2018-01-18 14:11 | XMS REPORT ---
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 Name Role Phone RC FLORES Unavailable PROBLEMS Type Condition ICD9-CM Code BYB32-GN Code Onset Dates Condition Status SNOMED Code Problem Post traumatic stress disorder (PTSD) F43.10 Active 30892659 Problem Psychophysiological insomnia F51.04 Active 057712096 Problem Essential (primary) hypertension I10 Active 34163862 Problem Bilateral low back pain without sciatica, unspecified chronicity M54.5 Active 397692214 Problem Forgetfulness R68.89 Active 51431646 Problem Severe episode of recurrent major depressive disorder, without psychotic features F33.2 Active 51493755 Problem Anxiety, generalized F41.1 Active 84652529 Problem Pinched nerve in neck G58.8 Active 15411838 Problem Type 2 diabetes mellitus without complication, without long-term current use of insulin E11.9 Active 505456732 Problem Vaginal dryness, menopausal N95.1 Active 01499912 Problem Mild intermittent asthma with acute exacerbation J45.21 Active 997780892 Problem Chronic nonintractable headache, unspecified headache type R51 Active 56698761 Problem Vitreous floaters of right eye H43.391 Active 14521060 ALLERGIES Substance Reaction Event Type Date Status Penicillin V Potassium anaphylaxis Drug Allergy Mar, Active ENCOUNTERS Encounter Location Date Diagnosis [facility] [address] [facility] [id number] [address] Sep, [facility] [address] [id number], [place] [address] Aug, Dental caries on smooth surface penetrating into pulp K02.63 and Encounter for dental examination Z01.20 [facility] [address] [id number], [place] [address] 04 Aug, 2017 Dental examination Z01.20 [facility] [address] [id number], [place] [address] Aug, [facility] [id number] [phone] July, Other infective chronic otitis externa of right ear H60.391 [facility] [address] [id number], [place] [address] July, [facility] [id number] [place] [phone] July, Other infective acute otitis externa of right ear H60.391 and Vaginal dryness, menopausal N95.[address] [facility] [id number] [place] [address] [phone] July, [facility] [id number] [place] [phone] July, Dental examination Z01.20 [facility] [address] [facility] [id number] [place] [address] [phone] July, [facility] [id number] [place] [address] Jun, Post traumatic stress disorder (PTSD) F43.10 ; Severe episode of recurrent major depressive disorder, without psychotic features F33.2 and Psychophysiological insomnia F51.04 [facility] [id number] [place] [address] [phone] May, Cervicalgia M54.2 [facility] [id number] [place] [address] May, Pinched nerve in neck G58.8 [facility] [id number] [place] [address] Apr, Post traumatic stress disorder (PTSD) F43.10 ; Severe episode of recurrent major depressive disorder, without psychotic features F33.2 and Psychophysiological insomnia F51.04 [facility] [id number] [place] [address] Apr, [facility] [id number] [id number] Apr, Mild intermittent asthma with acute exacerbation J45.21 [facility] [id number] [place] [address] [phone] Apr, Chronic nonintractable headache, unspecified headache type R51 [place] [id number] [place] [address]11[address] 67[address] Mar, Post traumatic stress disorder (PTSD) F43.10 ; Severe episode of recurrent major depressive disorder, without psychotic features F33.2 and Psychophysiological insomnia F51.04 [place] [id number] [place] [address] Mar, Post traumatic stress disorder (PTSD) F43.10 [place] [id number] [place] [address] [phone] Mar, Type 2 diabetes mellitus without complication, without long-term current use of insulin E11.9 ; Bilateral low back pain without sciatica, unspecified chronicity M54.5 and Chronic nonintractable headache, unspecified headache type R51 [place] [id number] [place] [address] Feb, [place] [id number] [place] [address] [phone] Jan, Vitreous floaters of right eye H43.391 [address] [id number] [place] [address] [phone] Jan, [place] [id number] [place] [address]99[address] Nov, Post traumatic stress disorder (PTSD) F43.10 ; Severe episode of recurrent major depressive disorder, without psychotic features F33.2 ; Psychophysiological insomnia F51.04 and Homeless Z59.0 [place] [id number] [place] [address]37[address] 36[address] Oct, Post traumatic stress disorder (PTSD) F43.10 ; Severe episode of recurrent major depressive disorder, without psychotic features F33.2 and Psychophysiological insomnia F51.[id number] [place] [address] [id number] Oct, Vaginal dryness, menopausal N95.1 and Dyspareunia in female N94.10 [facility] [id number] [place] [address] [phone] Oct, [facility] [address] [id number] Aug, Post traumatic stress disorder (PTSD) F43.10 ; Severe episode of recurrent major depressive disorder, without psychotic features F33.2 and Psychophysiological insomnia F51.04 [facility] [id number] [place] [address] [phone] Aug, [facility] [id number] [place] [address] [phone] Aug, Well woman exam Z01.419 and Vaginal dryness, menopausal N95.1 [place] [address] [address] July, [facility] [id number] [place] [address]13[address] July, [place] [address] [address] July, Post traumatic stress disorder (PTSD) F43.10 ; Severe episode of recurrent major depressive disorder, without psychotic features F33.2 and Psychophysiological insomnia F51.04 [facility] [id number] [place] [address] [phone] July, Mass of left lung R91.8 [facility] [address] [place] [address] Jun, Shortness of breath R06.02 ; Wheezing R06.2 and Mild intermittent asthma with acute exacerbation J45.21 [facility] [id number] [place] [address] 8[address]37- 4[address] May, Post traumatic stress disorder (PTSD) F43.10 ; Severe episode of recurrent major depressive disorder, without psychotic features F33.2 ; Essential (primary) hypertension I10 and Psychophysiological insomnia F51.04 [facility] [id number][place] [id number] May, 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 and Headache, unspecified headache type R51 [place] [id number] [place] [address] 6[address] Apr, [place] [id number] [place] [address] 99[address] Apr, Post traumatic stress disorder (PTSD) F43.10 ; Severe episode of recurrent major depressive disorder, without psychotic features F33.2 ; Essential (primary) hypertension I10 and Psychophysiological insomnia F51.04 [place] [id number] [place] [address] 68655[address] 1845 Mar, Post traumatic stress disorder (PTSD) F43.10 and Severe episode of recurrent major depressive disorder, without psychotic features F33.2 [place] [id number] [place] [address] 33034- 5709 Feb, Post traumatic stress disorder (PTSD) F43.10 [place] [id number] [place] [address] 30387- 6754 Feb, Post traumatic stress disorder (PTSD) F43.10 and Severe episode of recurrent major depressive disorder, without psychotic features F33.2 [facility] [id number][place] [id number] Feb, Anxiety, generalized F41.1 and Severe episode of recurrent major depressive disorder, without psychotic features F33.2 [place] [address] [place] [address] 09238- 2146 Feb, Severe episode of recurrent major depressive disorder, without psychotic features F33.2 and Anxiety, generalized F41.1 [facility] [id number] [place] [address] [phone] Aug, [facility] [id number][place] [phone] May, Forgetfulness R68.89 and Bilateral low back pain without sciatica, unspecified chronicity M54.5 [facility] [id number], [place] [id number] Apr, Forgetfulness R68.89 [facility] [id number] [place] [address] [phone] Jan, Irritant contact dermatitis due to other chemical products L24.5 [facility] [id number] [place] [address] [phone] Sep, Nausea vomiting and diarrhea 787.91 [facility] [id number] [place] [address] 95395- 5576 Jun, [facility] [id number] [place] [address] 26627- 0476 Jun, [facility] [id number] [place] [address] 04288- 5286 July, [facility] [id number] [place] [address] [id number] July, [facility] [id number] [place] [address] [phone] Jun, [facility] [id number] [place] [address] 60595- 9236 Jun, [facility] [id number] [place] [address] [phone] May, [facility] [address] [id number], [place] [address] May, [facility] [id number], [place] [phone] May, [facility] [id number] [place] [address] 29780- 1126 May, [facility] [id number] [place] [address] 36339- 2546 May, [facility] [address], [place] [address] May, [facility] [id number], [place] [phone] Apr, [facility] [address] [facility] [id number], [place] [address] Apr, [facility] [address] [id number] [place] [id number] Apr, [facility] [address]00565100[place], [place] [address] Apr, [facility] [address] [id number] [place] [id number] Apr, [facility] [address] [facility] [id number], [place] [address] Apr, [facility] [address] [id number] [place] [id number] Apr, [facility] [address]65100[place], [place] [address] Apr, [facility] [id number], [place] [phone] Apr, [facility] [address]00565100[place], [place] [address] Apr, [facility] [address]00565100[place], [place] [address] Jan, [facility] [address]00565100[place], [place] [address] Jan, [facility] [address] [id number][place] [id number] Dec, [facility] [address] [id number], [place] [address] Oct, [facility] [address] [id number] [place] [id number] Sep, [facility] [address] [id number] [place] [id number] Aug, [facility] [address] [id number] [place] [id number] Aug, [facility] [address] [id number] [place] [phone] Jun, [facility] [address] [facility] [id number] [place] [phone] May, [facility] [address] [facility] [id number] [place] [phone] May, [facility] [address] [facility] [id number] [place] [address] Apr, IMMUNIZATIONS No Known Immunizations SOCIAL HISTORY Never Assessed REASON FOR VISIT Medication Management Jose RN PLAN OF CARE Activity Details Follow Up 4 Weeks Reason:headaches VITAL SIGNS Height 64.75 in 2017-03-25 Weight 232 lbs 2017-03-25 Temperature 97.0 degrees Fahrenheit 2017-03-25 Heart Rate 64 bpm 2017-03-25 Respiratory Rate 18 2017-03-25 BMI 38.90 kg/m2 2017-03-25 Blood pressure systolic 138 mmHg 2017-03-25 Blood pressure diastolic 72 mmHg 2017-03-25 MEDICATIONS Medication Instructions Dosage Frequency Start Date [...] 4 hrs 2 puffs as needed 4h 17 Jun, 2016 12 months Not-Taking Ibuprofen 800 MG Orally Three times a day 1 tablet 8h 23 May, 2015 Active Trazodone HCl 100 mg Orally Once a day 1/2 tablet at bedtime 24h 30 days Active Pristiq 100 mg Orally Once a day 1 tablet 24h 30 days Active Rexulti 1 MG Orally Once a day 1 tablet 24h 30 days Not-Taking RESULTS Name Result Date Reference Range A1C (IN HOUSE) 2017-03-25 A1C IN HOUSE 6.2 4.3 - 5.6 % Previous A1c 6.1 Lot [id number] Exp date 01/07 PROCEDURES Procedure Date Ordered Result Body Site GLYCATED HEMOGLOBIN TEST Mar 25, 2017 INSTRUCTIONS MEDICATIONS ADMINISTERED No Known Medications [...]
--- OUTSIDE RECORDS SUMMARY | 2018-01-18 14:11 | XMS REPORT ---
Author Author RC FLORES [facility] Address [address] [place] [address] Care Team Providers Care Band Builder Name Role Phone RC FLORES Unavailable PROBLEMS Type Condition ICD9-CM Code VHV07-DG Code Onset Dates Condition Status SNOMED Code Problem Post traumatic stress disorder (PTSD) F43.10 Active 67196863 Problem Psychophysiological insomnia F51.04 Active 348959837 Problem Essential (primary) hypertension I10 Active 24887530 Problem Bilateral low back pain without sciatica, unspecified chronicity M54.5 Active 466601537 Problem Forgetfulness R68.89 Active 10812971 Problem Severe episode of recurrent major depressive disorder, without psychotic features F33.2 Active 94879313 Problem Anxiety, generalized F41.1 Active 42219468 Problem Pinched nerve in neck G58.8 Active 29533824 Problem Type 2 diabetes mellitus without complication, without long-term current use of insulin E11.9 Active 260836392 Problem Vaginal dryness, menopausal N95.1 Active 04160538 Problem Mild intermittent asthma with acute exacerbation J45.21 Active 479320974 Problem Chronic nonintractable headache, unspecified headache type R51 Active 39900365 Problem Vitreous floaters of right eye H43.391 Active 96438302 ALLERGIES No Information ENCOUNTERS Encounter Location Date Diagnosis [facility] [address] [facility] [id number], [place] [address] Sep, [facility] [address] [id number], [place] [address] Aug, [facility] [address] [id number] [id number] Aug, 2017 [facility] [address] [id number], [place] [address] Aug, Dental examination Z01.20 [facility] [id number], [place] [address] Aug, [facility] [id number] [id number] July, Other infective chronic otitis externa of right ear H60.391 [facility] [address] [id number], [place] [address] July, [facility] [id number][place] [id number] July, Other infective acute otitis externa of right ear H60.391 and Vaginal dryness, menopausal N95.1 [facility] [address] [id number] [id number] July, [facility] [address] [id number][place] [phone] July, Dental examination Z01.20 [facility] [address] [facility] [address] [id number][place] [id number] July, [facility] [id number] [place] [address] Jun, Post traumatic stress disorder (PTSD) F43.10 ; Severe episode of recurrent major depressive disorder, without psychotic features F33.2 and Psychophysiological insomnia F51.04 [facility] [id number], [place] [id number] May, Cervicalgia M54.2 [facility] [id number] [place] [address] May, Pinched nerve in neck G58.8 [facility] [address] [place] [address] Apr, Post traumatic stress disorder (PTSD) F43.10 ; Severe episode of recurrent major depressive disorder, without psychotic features F33.2 and Psychophysiological insomnia F51.04 [facility] [address] [place] [address] Apr, [facility] [id number] [place] [id number] Apr, Mild intermittent asthma with acute exacerbation J45.21 [facility] [id number] [place] [id number] Apr, Chronic nonintractable headache, unspecified headache type R51 [place] [id number] [place] [address] Mar, Post traumatic stress disorder (PTSD) F43.10 ; Severe episode of recurrent major depressive disorder, without psychotic features F33.2 and Psychophysiological insomnia F51.04 [place] [id number] [place] [address] Mar, Post traumatic stress disorder (PTSD) F43.10 [facility] [id number] [place] [id number] Mar, Type 2 diabetes mellitus without complication, without long-term current use of insulin E11.9 ; Bilateral low back pain without sciatica, unspecified chronicity M54.5 and Chronic nonintractable headache, unspecified headache type R51 [place] [id number] [place] [address] Feb, [facility] [id number] [place] [id number] Jan, Vitreous floaters of right eye H43.391 [facility] [id number] [place] [phone] Jan, [place] [id number] [place] [address] Nov, Post traumatic stress disorder (PTSD) F43.10 ; Severe episode of recurrent major depressive disorder, without psychotic features F33.2 ; Psychophysiological insomnia F51.04 and Homeless Z59.0 [place] [address] [address] Oct, Post traumatic stress disorder (PTSD) F43.10 ; Severe episode of recurrent major depressive disorder, without psychotic features F33.2 and Psychophysiological insomnia F51.04 [facility] [address] [id number] Oct, Vaginal dryness, menopausal N95.1 and Dyspareunia in female N94.10 [facility] [id number] [place] [id number] Oct, [facility] [address] [id number] Aug, Post traumatic stress disorder (PTSD) F43.10 ; Severe episode of recurrent major depressive disorder, without psychotic features F33.2 and Psychophysiological insomnia F51.04 [facility] [id number] [place] [id number] Aug, [facility] [id number] [place] [id number] Aug, Well woman exam Z01.419 and Vaginal dryness, menopausal N95.1 [facility] [address] [address] July, [place] [address] [address] July, [facility] [address] [address] July, Post traumatic stress disorder (PTSD) F43.10 ; Severe episode of recurrent major depressive disorder, without psychotic features F33.2 and Psychophysiological insomnia F51.04 [facility] [id number] [place] [phone] July, Mass of left lung R91.8 [facility] [id number] [place] [address] Jun, Shortness of breath R06.02 ; Wheezing R06.2 and Mild intermittent asthma with acute exacerbation J45.21 [facility] [address] [address] May, Post traumatic stress disorder (PTSD) F43.10 ; Severe episode of recurrent major depressive disorder, without psychotic features F33.2 ; Essential (primary) hypertension I10 and Psychophysiological insomnia F51.04 [facility] [id number], [place] [id number] May, 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 and Headache, unspecified headache type R51 [place] [id number] [place] [address] Apr, [facility] [id number] [place] [address] Apr, Post traumatic stress disorder (PTSD) F43.10 ; Severe episode of recurrent major depressive disorder, without psychotic features F33.2 ; Essential (primary) hypertension I10 and Psychophysiological insomnia F51.04 [place] [address] [address] Mar, Post traumatic stress disorder (PTSD) F43.10 and Severe episode of recurrent major depressive disorder, without psychotic features F33.2 [place] [id number] [place] [address] Feb, Post traumatic stress disorder (PTSD) F43.10 [place] [id number] [place] [address] Feb, Post traumatic stress disorder (PTSD) F43.10 and Severe episode of recurrent major depressive disorder, without psychotic features F33.2 [address] [id number] Feb, Anxiety, generalized F41.1 and Severe episode of recurrent major depressive disorder, without psychotic features F33.2 [place] [address] [address]39[address] Feb, Severe episode of recurrent major depressive disorder, without psychotic features F33.2 and Anxiety, generalized F41.1 [facility] [id number] [place] [address] [phone] Aug, [facility] [id number] [place] [address] [phone] May, Forgetfulness R68.89 and Bilateral low back pain without sciatica, unspecified chronicity M54.5 [facility] [address] [id number] [phone] Apr, Forgetfulness R68.89 [facility] [id number], [place] [id number] Jan, Irritant contact dermatitis due to other chemical products L24.5 [facility] [id number], [place] [phone] Sep, Nausea vomiting and diarrhea 787.91 [facility] [id number] [place] [address] 2546 Jun, [facility] [id number] [place] [address] 14823- 5042 Jun, [facility] [id number] [place] [address]55[address] July, [facility] [id number], [place] [phone] July, [facility] [id number] [place] [address] [id number] Jun, [facility] [address] [place] [address] 37289- 6918 Jun, [facility] [id number] [place] [address] [id number] May, [facility] [address] [id number], [place] [address] May, [facility] [id number], [place] [id number] May, [facility] [address]00565100[place], [place] [address] May, [facility] [id number] [address] 2546 May, [facility] [address] [id number], [place] [address] May, [facility] [id number], [place] [phone] Apr, [facility] [address] [facility] [id number], [place] [address] Apr, [facility] [address] [id number][place] [phone] Apr, [facility] [address] [facility] [id number], [place] [address] Apr, [facility] [address] [id number], [place] [id number] Apr, [facility] [address] [facility] [id number], [place] [address] Apr, [facility] [address] [id number], [place] [id number] Apr, [facility] [address]65100[place], [place] [address] Apr, [facility] [id number], [place] [id number] Apr, [facility] [address]00565100[place], [place] [address] Apr, [facility] [address]00565100[place], [place] [address] Jan, [facility] [address]00565100[place], [place] [address] Jan, [facility] [address] [id number], [place] [id number] Dec, [facility] [address] [id number], [place] [id number] Oct, [facility] [address] [id number], [place] [phone] Sep, [facility] [address] [id number], [place] [id number] Aug, [facility] [address] [id number], [place] [id number] Aug, [facility] [address] [id number], [place] [phone] Jun, [facility] [address] [id number] [place] [phone] May, [facility] [address] [facility] [id number] [place] [phone] May, [facility] [address] [facility] [id number] [place] [address] Apr, IMMUNIZATIONS No Known Immunizations SOCIAL HISTORY Never Assessed REASON FOR VISIT eye exam PLAN OF CARE VITAL SIGNS MEDICATIONS Unknown [...]
--- OUTSIDE RECORDS SUMMARY | 2018-01-18 14:11 | XMS REPORT ---
Author Author EVELIN LOVELL [facility] e[employer] Address Unknown Phone Unavailable Care Team Providers Care Loom Changer Name Role Phone EVELIN LOVELL CP Unavailable Allergies, Adverse Reactions, Alerts Substance Reaction Event Type Penicillin V Potassium anaphylaxis Drug Allergy Problems Problem Type Condition Code Onset Dates Condition Status Problem Encounter for change or removal of nonsurgical wound dressing V58.30 Active Problem Chronic rhinitis 472.0 Active Problem Cellulitis and abscess of trunk 682.2 Active Assessment Irritant contact dermatitis due to other chemical products L24.5 Active Problem Asthma, unspecified, unspecified status 493.90 Active Problem Effusion of ankle and foot joint 719.07 Active Problem Nausea vomiting and diarrhea 787.91 Active Problem Essential hypertension, benign 401.1 Active Problem Acute bronchitis 466.0 Active Problem Influenza with other respiratory manifestations 487.1 Active Problem Asthma, unspecified, with (acute) exacerbation 493.92 Active Medications Medication Code System Code Instructions Start Date End Date Status Dosage Triamcinolone Acetonide [facility] [address]-44 0.1 % Externally Twice a day Feb 06, 2015 1 application to affected area Albuterol Sulfate [facility] [address]-18 90 mcg/actuation May 20, 2012 2 puffs by Inhalation route every 4-6 hours as needed PRN cough or wheezing Promethazine HCl [facility] [address]-50 25 MG Orally 3 times a day October 17, 2014 1 tablet as needed for n/v Procedures Procedure Coding System Code Date Office Visit, Est Pt., Level 3 CPT-4 15984 Feb 06, 2015 Vital Signs Date/Time: Feb 06, 2015 Temperature 97.8 F Weight 223.8 lbs Height 64.75 in BMI 37.53 Index Blood Pressure Diastolic 70 mmHg Blood Pressure Systolic 120 mmHg Cardiac Monitoring Heart Rate 76 bpm Results No Known Results Summary Purpose eClinicalWorks Submission
--- OUTSIDE RECORDS SUMMARY | 2018-01-18 14:12 | XMS REPORT ---
Author Author RC FLORES [facility] Address [address] [place] [address] Care Team Providers Care Rip Machine Operator Name Role Phone RC FLORES Unavailable PROBLEMS Type Condition ICD9-CM Code UAD85-UN Code Onset Dates Condition Status SNOMED Code Problem Bilateral low back pain without sciatica, unspecified chronicity M54.5 Active 835596848 Problem Severe episode of recurrent major depressive disorder, without psychotic features F33.2 Active 61062020 Problem Forgetfulness R68.89 Active 35461725 Problem Effusion of ankle and foot joint 719.07 Active 6159220 Problem Asthma, unspecified, unspecified status 493.90 Active 44775547 Problem Chronic rhinitis 472.0 Active 49622541 Problem Essential hypertension, benign 401.1 Active 1580927 Problem Vaginal dryness, menopausal N95.1 Active 51070245 Problem Mild intermittent asthma with acute exacerbation J45.21 Active 067007868 Problem Post traumatic stress disorder (PTSD) F43.10 Active 42265921 Problem Anxiety, generalized F41.1 Active 41176805 Problem Psychophysiological insomnia F51.04 Active 397541388 Problem Essential (primary) hypertension I10 Active 87004079 ALLERGIES Substance Reaction Event Type Date Status Penicillin V Potassium anaphylaxis Drug Allergy May, Active SOCIAL HISTORY Never Assessed PLAN OF CARE Activity Details Follow Up prn Reason: VITAL SIGNS Height 64.75 in 2016-05-28 Weight 237.2 lbs 2016-05-28 Temperature 98.4 degrees Fahrenheit 2016-05-28 Heart Rate 58 bpm 2016-05-28 Respiratory Rate 16 2016-05-28 BMI 39.77 kg/m2 2016-05-28 Blood pressure systolic 136 mmHg 2016-05-28 Blood pressure diastolic 78 mmHg 2016-05-28 MEDICATIONS Medication Instructions Dosage Frequency Start Date [...]
--- OUTSIDE RECORDS SUMMARY | 2018-01-18 14:12 | XMS REPORT | Continuity of Care Document ---
Author Author [facility] Address Unknown Phone Unavailable Allergies Active Description Code Type Severity Reaction Onset Reported/Identified Relationship to Patient Clinical Status Yes Penicillins Drug Allergy 05/04/2008 Yes Penicillins Drug Allergy N/A N/A 05/04/2008 Yes No Allergy Information Available [id number] Drug Allergy Unknown N/A 2016 Medications There is no data. Problems Date Dx Coded Attending Type Code Diagnosis Diagnosed By 05/04/2008 RC FLORES APRN 250.00 DIABETES II CONTROLLED 05/04/2008 RC FLORES APRN 296.90 MO MOOD DIS NOS 05/04/2008 RC FLORES APRN 300.00 ANXIETY UNSPEC 05/04/2008 RC FLORES APRN 250.00 DIABETES II CONTROLLED 05/04/2008 RC FLORES APRN 296.90 MO MOOD DIS NOS 05/04/2008 RC FLORES APRN 300.00 ANXIETY UNSPEC 05/04/2008 250.00 DIABETES II CONTROLLED 05/04/2008 296.90 MO MOOD DIS NOS 05/04/2008 300.00 ANXIETY UNSPEC 05/04/2008 RC FLORES APRN 250.00 DIABETES II CONTROLLED 05/04/2008 RC FLORES APRN 296.90 MO MOOD DIS NOS 05/04/2008 RC FLORES APRN 300.00 ANXIETY UNSPEC 05/04/2008 GABBY GOMEZ DOA K 250.00 DIABETES II CONTROLLED 05/04/2008 GABBY GOMEZ DOA K 296.90 MO MOOD DIS NOS 05/04/2008 GABBY GOMEZ DOA K 300.00 ANXIETY UNSPEC 05/04/2008 GABBY GOMEZ DOA K 250.00 DIABETES II CONTROLLED 05/04/2008 GABBY GOMEZ DOA K 296.90 MO MOOD DIS NOS 05/04/2008 PATRICIA CROW LEANDRO K 300.00 ANXIETY UNSPEC 05/04/2008 PATRICIA CROW LEANDRO K 250.00 DIABETES II CONTROLLED 05/04/2008 GOMEZ DO, LEANDRO K 296.90 MO MOOD DIS NOS 05/04/2008 GOMEZ DO, LEANDRO K 300.00 ANXIETY UNSPEC 05/04/2008 GOMEZ DO, LEANDRO K 250.00 DIABETES II CONTROLLED 05/04/2008 GOMEZ DO, LEANDRO K 296.90 MO MOOD DIS NOS 05/04/2008 GOMEZ DO, LEANDRO K 300.00 ANXIETY UNSPEC 05/04/2008 GOMEZ DO, LEANDRO K 250.00 DIABETES II CONTROLLED 05/04/2008 GOMEZ DO, LEANDRO K 296.90 MO MOOD DIS NOS 05/04/2008 GOMEZ DO, LEANDRO K 300.00 ANXIETY UNSPEC 05/04/2008 GOMEZ DO, LEANDRO K 250.00 DIABETES II CONTROLLED 05/04/2008 GOMEZ DO, LEANDRO K 296.90 MO MOOD DIS NOS 05/04/2008 GOMEZ DO, LEANDRO K 300.00 ANXIETY UNSPEC 05/04/2008 EVELIN LOVELL APRN 250.00 DIABETES II CONTROLLED 05/04/2008 EVELIN LOVELL APRN 296.90 MO MOOD DIS NOS 05/04/2008 EVELIN LOVELL APRN 300.00 ANXIETY UNSPEC 05/20/2012 RC FLORES APRN 487.1 INFLUENZA 05/20/2012 RC FLORES APRN 493.92 ASTHMA (ACUTE) EXACERBATION 05/20/2012 RC FLORES APRN 487.1 INFLUENZA 05/20/2012 RC FLORES APRN 493.92 ASTHMA (ACUTE) EXACERBATION 05/20/2012 487.1 INFLUENZA 05/20/2012 493.92 ASTHMA (ACUTE ) EXACERBATION 05/20/2012 RC FLORES APRN 487.1 INFLUENZA 05/20/2012 RC FLORES APRN 493.92 ASTHMA (ACUTE) EXACERBATION 05/20/2012 LEANDRO GOMEZ DO 487.1 INFLUENZA 05/20/2012 LEANDRO GOMEZ DO K 493.92 ASTHMA (ACUTE) EXACERBATION 05/20/2012 GABBY GOMEZ DOA K 487.1 INFLUENZA 05/20/2012 LEANDRO GOMEZ DO K 493.92 ASTHMA (ACUTE) EXACERBATION 05/20/2012 GABBY GOMEZ DOA K 487.1 INFLUENZA 05/20/2012 GABBY GOMEZ DOA K 493.92 ASTHMA (ACUTE) EXACERBATION 05/20/2012 GABBY GOMEZ DOA K 487.1 INFLUENZA 05/20/2012 GOMEZ DO, LEANDRO K 493.92 ASTHMA (ACUTE) EXACERBATION 05/20/2012 GOMEZ DO, LEANDRO K 487.1 INFLUENZA 05/20/2012 GOMEZ DO, LEANDRO K 493.92 ASTHMA (ACUTE) EXACERBATION 05/20/2012 GOMEZ DO, LEANDRO K 487.1 INFLUENZA 05/20/2012 GOMEZ DO, LEANDRO K 493.92 ASTHMA (ACUTE) EXACERBATION 05/20/2012 HELLEVELIN GOEL APRN 487.1 INFLUENZA 05/20/2012 EVELIN LOVELL APRN 493.92 ASTHMA (ACUTE) EXACERBATION 06/20/2012 RC FLORES APRN 493.90 ASTHMA UNSPECIFIED 06/20/2012 RC FLORES APRN 719.07 EDEMA FOOT 06/20/2012 493.90 ASTHMA UNSPECIFIED 06/20/2012 719.07 EDEMA FOOT 06/20/2012 RC FLORES APRN 493.90 ASTHMA UNSPECIFIED 06/20/2012 RC FLORES APRN 719.07 EDEMA FOOT 06/20/2012 GOMEZ DO, LEANDRO K 493.90 ASTHMA UNSPECIFIED 06/20/2012 GOMEZ DO, LEANDRO K 719.07 EDEMA FOOT 06/20/2012 GOMEZ DO, LEANDRO K 493.90 ASTHMA UNSPECIFIED 06/20/2012 GOMEZ DO, LEANDRO K 719.07 EDEMA FOOT 06/20/2012 GOMEZ DO, LEANDRO K 493.90 ASTHMA UNSPECIFIED 06/20/2012 GOMEZ DO, LEANDRO K 719.07 EDEMA FOOT 06/20/2012 GOMEZ DO, LEANDRO K 493.90 ASTHMA UNSPECIFIED 06/20/2012 GOMEZ DO, LEANDRO K 719.07 EDEMA FOOT 06/20/2012 GOMEZ DO, LEANDRO K 493.90 ASTHMA UNSPECIFIED 06/20/2012 GOMEZ DO, LEANDRO K 719.07 EDEMA FOOT 06/20/2012 GOMEZ DO, LEANDRO K 493.90 ASTHMA UNSPECIFIED 06/20/2012 GOMEZ DO, LEANDRO K 719.07 EDEMA FOOT 06/20/2012 EVELIN LOVELL APRN 493.90 ASTHMA UNSPECIFIED 06/20/2012 EVELIN LOVELL APRN 719.07 EDEMA FOOT 09/02/2012 401.1 HYPERTENSION, BENIGN ESSENTIAL 09/02/2012 RC FLORES APRN 401.1 HYPERTENSION, BENIGN ESSENTIAL 09/02/2012 GOMEZ DO, LEANDRO K 401.1 HYPERTENSION, BENIGN ESSENTIAL 09/02/2012 GOMEZ DO, LEANDRO K 401.1 HYPERTENSION, BENIGN ESSENTIAL 09/02/2012 GOMEZ DO, LEANDRO K 401.1 HYPERTENSION, BENIGN ESSENTIAL 09/02/2012 GOMEZ DO, LEANDRO K 401.1 HYPERTENSION, BENIGN ESSENTIAL 09/02/2012 GOMEZ DO, LEANDRO K 401.1 HYPERTENSION, BENIGN ESSENTIAL 09/02/2012 GOMEZ DO, LEANDRO K 401.1 HYPERTENSION, BENIGN ESSENTIAL 09/02/2012 EVELIN LOVELL APRN 401.1 HYPERTENSION, BENIGN ESSENTIAL 12/23/2012 RC FLORES APRN NODX NO DIAGNOSIS 12/23/2012 GOMEZ DO, LEANDRO K NODX NO DIAGNOSIS 12/23/2012 GOMEZ DO, LEANDRO K NODX NO DIAGNOSIS 12/23/2012 GOMEZ DO, LEANDRO K NODX NO DIAGNOSIS 12/23/2012 GOMEZ DO, LEANDRO K NODX NO DIAGNOSIS 12/23/2012 GOMEZ DO, LEANDRO K NODX NO DIAGNOSIS 12/23/2012 GOMEZ DO, LEANDRO K NODX NO DIAGNOSIS 12/23/2012 EVELIN LOVELL APRN E NODX NO DIAGNOSIS 05/15/2013 GOMEZ DO, LEANDRO K 682.2 CELLULITIS AND ABSCESS OF TRUNK 05/15/2013 GOMEZ DO, LEANDRO K 682.2 CELLULITIS AND ABSCESS OF TRUNK 05/15/2013 GOMEZ DO, LEANDRO K 682.2 CELLULITIS AND ABSCESS OF TRUNK 05/15/2013 GOMEZ DO, LEANDRO K 682.2 CELLULITIS AND ABSCESS OF TRUNK 05/15/2013 GOMEZ DO, LEANDRO K 682.2 CELLULITIS AND ABSCESS OF TRUNK 05/15/2013 GOMEZ DO, LEANDRO K 682.2 CELLULITIS AND ABSCESS OF TRUNK 05/15/2013 EVELIN LOVELL APRN 682.2 CELLULITIS AND ABSCESS OF TRUNK 05/17/2013 GOMEZ DO, LEANDRO K V58.30 ENCOUNTER FOR CHANGE OR REMOVAL OF NONSURGICAL WOUND DRESSING 05/17/2013 GOMEZ DO LEANDRO K V58.30 ENCOUNTER FOR CHANGE OR REMOVAL OF NONSURGICAL WOUND DRESSING 05/17/2013 GOMEZ DO LEANDRO K V58.30 ENCOUNTER FOR CHANGE OR REMOVAL OF NONSURGICAL WOUND DRESSING 05/17/2013 GOMEZ DO, LEANDRO K V58.30 ENCOUNTER FOR CHANGE OR REMOVAL OF NONSURGICAL WOUND DRESSING 05/17/2013 GOMEZ LEANDRO V58.30 ENCOUNTER FOR CHANGE OR REMOVAL OF NONSURGICAL WOUND DRESSING 05/17/2013 SHARONJerricaAMANDO CUMMINSCrista EVELIN E V58.30 ENCOUNTER FOR CHANGE OR REMOVAL OF NONSURGICAL WOUND DRESSING 08/02/2013 EVELIN LOVELL APRN E 466.0 ACUTE BRONCHITIS 08/02/2013 SHARONEVELIN GOEL APRN E 472.0 CHRONIC RHINITIS 08/27/2015 VITT, VERA M GAUGE MAKER Ot D64.9 ANEMIA, UNSPECIFIED 08/27/2015 VITT, VERA M GAUGE MAKER Ot F32.9 MAJOR DEPRESSIVE DISORDER, SINGLE EPISOD 08/27/2015 VITT, VERA M GAUGE MAKER Ot Z51.81 ENCOUNTER FOR THERAPEUTIC DRUG LEVEL MON 08/29/2015 TONIA SALGUERO MD (DDU) Ot Z02.71 ENCOUNTER FOR DISABILITY DETERMINATION 08/10/2016 VITT, VERA M GAUGE MAKER Ot D64.9 ANEMIA, UNSPECIFIED 08/10/2016 VITT, VERA M GAUGE MAKER Ot F32.9 MAJOR DEPRESSIVE DISORDER, SINGLE EPISOD 08/10/2016 VITT, VERA M GAUGE MAKER Ot Z51.81 ENCOUNTER FOR THERAPEUTIC DRUG LEVEL MON 08/10/2016 TONIA SALGUERO MD (DDU) Ot Z02.71 ENCOUNTER FOR DISABILITY DETERMINATION 08/12/2016 VITT, VERA M GAUGE MAKER Ot D64.9 ANEMIA, UNSPECIFIED 08/12/2016 VITT, VERA M GAUGE MAKER Ot F32.9 MAJOR DEPRESSIVE DISORDER, SINGLE EPISOD 08/12/2016 VITT, VERA M GAUGE MAKER Ot Z51.81 ENCOUNTER FOR THERAPEUTIC DRUG LEVEL MON 08/12/2016 TONIA SALGUERO MD (DDU) Ot Z02.71 ENCOUNTER FOR DISABILITY DETERMINATION 08/19/2016 RC FLORES CFNP Ot J98.11 ATELECTASIS 08/19/2016 RC FLORES CFNP Ot R91.8 OTHER NONSPECIFIC ABNORMAL FINDING OF JORDON 09/02/2016 RC FLORES CFNP Ot J98.11 ATELECTASIS 09/02/2016 RC FLORES CFNP Ot R91.8 OTHER NONSPECIFIC ABNORMAL FINDING OF JORDON 09/23/2016 RC FLORES CFNP Ot J98.11 ATELECTASIS 09/23/2016 FLORES RC Romano CFNP Ot R91.8 OTHER NONSPECIFIC ABNORMAL FINDING OF JORDON 10/07/2016 TODDDANIEL Crista TIAN Ot Z12.31 ENCNTR SCREEN MAMMOGRAM FOR MALIGNANT NE Procedures Code [place] [address] OXIMETRY 05/20/2012 77921 A1C (IN-HOUSE) 05/20/2012 25442 NO CHARGE 12/23/2012 72780 CULTURE WOUND (AEROBIC) 05/18/2013 69568 I/D SIMPLE ABSCESS 05/18/2013 D9999 UNSPECIFIED PROCEDURE 05/20/2013 96402 MICRO ALBUMIN-IN HOUSE 07/12/2013 01881 A1C (IN-HOUSE) 07/12/2013 78473 OXIMETRY 08/02/2013 71836 STREP A (IN-HOUSE) 08/02/2013 J7613 ALBUTEROL UNIT DOSE FORM INHALED 08/02/2013 Results Test Result Range CBC With Differential/Platelet - 03/19/16 09:29 WBC 8.5 x10E3/uL 3.4-10.8 RBC 4.86 x10E6/uL 3.77-5.28 Hemoglobin 15.2 g/dL 11.1-15.9 Hematocrit 45.6 % 34.0-46.6 MCV 94 fL 79-97 MCH 31.3 pg 26.6-33.0 MCHC 33.3 g/dL 31.5-35.7 RDW 13.8 % 12.3-15.4 Platelets 327 x10E3/uL 150-379 Neutrophils 61 % Lymphs 27 % Monocytes 7 % Eos 4 % Basos 1 % Neutrophils (Absolute) 5.2 x10E3/uL 1.4-7.0 Lymphs (Absolute) 2.3 x10E3/uL 0.7-3.1 Monocytes(Absolute) 0.6 x10E3/uL 0.1-0.9 Eos (Absolute) 0.3 x10E3/uL 0.0-0.4 Baso (Absolute) 0.1 x10E3/uL 0.0-0.2 Immature Granulocytes 0 % Immature Grans (Abs) 0.0 x10E3/uL 0.0-0.1 Comp. Metabolic Panel (14) - 03/19/16 09:29 Glucose, Serum 118 mg/dL 65-99 BUN 7 mg/dL 8-27 Creatinine, Serum 0.92 mg/dL 0.57-1.00 eGFR If NonAfricn Am 67 mL/min/1.73 >59 eGFR If Africn Am 77 mL/min/1.73 >59 BUN/Creatinine Ratio 8 11-26 Sodium, Serum 141 mmol/L 134-144 Potassium, Serum 4.5 mmol/L 3.5-5.2 Chloride, Serum 102 mmol/L 96-106 Carbon Dioxide, Total 24 mmol/L 18-29 Calcium, Serum 9.9 mg/dL 8.7-10.3 Protein, Total, Serum 7.3 g/dL 6.0-8.5 Albumin, Serum 4.4 g/dL 3.6-4.8 Globulin, Total 2.9 g/dL 1.5-4.5 A/G Ratio 1.5 1.1-2.5 Bilirubin, Total 0.3 mg/dL 0.0-1.2 Alkaline Phosphatase, S 68 IU/L 39-117 AST (SGOT) 18 IU/L 0-40 ALT (SGPT) 14 IU/L 0-32 Lipid Panel - 03/19/16 09:29 Cholesterol, Total 195 mg/dL 100-199 Triglycerides 157 mg/dL 0-149 HDL Cholesterol 58 mg/dL >39 VLDL Cholesterol Gera 31 mg/dL 5-40 LDL Cholesterol Calc 106 mg/dL 0-99 TSH - 03/19/16 09:29 TSH 0.554 uIU/mL 0.450-4.500 [id number] - 08/13/16 12:43 Serum or plasma urea nitrogen measurement (mass/volume) 11 mg/dL 7-18 Serum or plasma creatinine measurement (mass/volume) 0.82 mg/dL 0.60-1.30 Serum or plasma urea nitrogen/creatinine mass ratio 13 NRG Serum or plasma creatinine measurement with calculation of estimated glomerular filtration rate > NRG Encounters ACCT No. Visit Date/Time Discharge Status Pt. Type Provider Facility Loc./Unit Complaint [id number] 08/02/2013 08:54:00 08/02/2013 23:59:59 CLS Outpatient EVELIN LOVELL APRN [id number] 07/12/2013 09:02:00 07/12/2013 23:59:59 CLS Outpatient LEANDRO GOMEZ DO [id number] 05/29/2013 11:31:00 05/29/2013 23:59:59 CLS Outpatient LEANDRO GOMEZ DO [id number] 05/22/2013 10:28:00 05/22/2013 23:59:59 CLS Outpatient LEANDRO GOMEZ DO [id number] 05/20/2013 13:52:00 05/20/2013 23:59:59 CLS Outpatient LEANDRO GOMEZ DO [id number] 05/18/2013 11:22:00 05/18/2013 23:59:59 CLS Outpatient LEANDRO GOMEZ DO [id number] 05/16/2013 13:28:00 05/16/2013 23:59:59 CLS Outpatient LEANDRO GOMEZ DO [id number] 12/23/2012 11:47:00 12/23/2012 23:59:59 CLS Outpatient RC FLORES APRN [id number] 06/20/2012 14:46:00 06/20/2012 23:59:59 CLS Outpatient RC FLORES APRN [id number] 05/27/2012 10:57:00 05/27/2012 23:59:59 CLS Outpatient RC FLORES APRN [id number] 09/02/2012 11:19:00 Document Registration [id number] 09/29/2017 14:00:00 09/29/2017 23:59:59 CLS Outpatient RC FLORES APRN [facility] [place] [id number] 09/23/2016 14:58:00 09/23/2016 23:59:59 CLS Outpatient DANIEL BROOKS GAUGE MAKER [facility] RAD Z01.419 WELL WOMAN EXAM [id number] 08/13/2016 12:29:00 08/13/2016 23:59:59 CLS Outpatient RC FLORES CFNP [facility] RAD R91.8 MASS OF LEFT LUNG [id number] 08/27/2015 10:19:00 08/27/2015 23:59:59 CLS Outpatient TONIA SALGUERO MD (DDU) [facility] RAD DDU [id number] 04/30/2015 09:13:00 04/30/2015 23:59:59 CLS Outpatient JAELYN PHILLIPS GAUGE MAKER [facility] LAB DEPRESSION [id number] 03/20/2016 10:05:00 Document Registration
--- OUTSIDE RECORDS SUMMARY | 2018-01-18 14:12 | XMS REPORT ---
Author Author CHRISTIAN RAYMOND [facility] Address [address] [place] [address] Care Team Providers Care Powder Coater Name Role Phone FLOR RAYMONDJONO Unavailable PROBLEMS Type Condition ICD9-CM Code NZR28-ED Code Onset Dates Condition Status SNOMED Code Problem Bilateral low back pain without sciatica, unspecified chronicity M54.5 Active 628189228 Problem Anxiety, generalized F41.1 Active 22448780 Problem Forgetfulness R68.89 Active 85494705 Problem Chronic rhinitis 472.0 Active 99054844 Problem Essential hypertension, benign 401.1 Active 4018468 Problem Effusion of ankle and foot joint 719.07 Active 0917738 Problem Asthma, unspecified, unspecified status 493.90 Active 30223718 Problem Vaginal dryness, menopausal N95.1 Active 45210452 Problem Mild intermittent asthma with acute exacerbation J45.21 Active 051608546 Problem Post traumatic stress disorder (PTSD) F43.10 Active 57411928 Problem Severe episode of recurrent major depressive disorder, without psychotic features F33.2 Active 40841425 Problem Essential (primary) hypertension I10 Active 94808158 Problem Psychophysiological insomnia F51.04 Active 077518411 ALLERGIES Unknown Allergies SOCIAL HISTORY No smoking Hx information available PLAN OF CARE VITAL SIGNS MEDICATIONS Unknown Medications RESULTS Name Result Date Reference Range TSH 2016-03-19 TSH 0.554 0.450-4.500 CBC 2016-03-19 WBC 8.5 3.4-10.8 RBC 4.86 3.77-5.28 Hemoglobin 15.2 11.1-15.9 Hematocrit 45.6 34.0-46.6 MCV 94 79-97 MCH 31.3 26.6-33.0 MCHC 33.3 31.5-35.7 RDW 13.8 12.3-15.4 Platelets 327 150-379 Neutrophils 61 Lymphs 27 Monocytes 7 Eos 4 Basos 1 Immature Cells Neutrophils (Absolute) 5.2 1.4-7.0 Lymphs (Absolute) 2.3 0.7-3.1 Monocytes(Absolute) 0.6 0.1-0.9 Eos (Absolute) 0.3 0.0-0.4 Baso (Absolute) 0.1 0.0-0.2 Immature Granulocytes 0 Immature Grans (Abs) 0.0 0.0-0.1 NRBC Hematology Comments: LIPID PANEL 2016-03-19 Cholesterol, Total 195 100-199 Triglycerides 157 0-149 HDL Cholesterol 58 >39 VLDL Cholesterol Gera 31 5-40 LDL Cholesterol Calc 106 0-99 CMP 2016-03-19 Glucose, Serum 118 65-99 BUN 7 8-27 Creatinine, Serum 0.92 0.57-1.00 eGFR If NonAfricn Am 67 >59 eGFR If Africn Am 77 >59 BUN/Creatinine Ratio 8 11-26 Sodium, Serum 141 134-144 Potassium, Serum 4.5 3.5-5.2 Chloride, Serum 102 96-106 Carbon Dioxide, Total 24 18-29 Calcium, Serum 9.9 8.7-10.3 Protein, Total, Serum 7.3 6.0-8.5 Albumin, Serum 4.4 3.6-4.8 Globulin, Total 2.9 1.5-4.5 A/G Ratio 1.5 1.1-2.5 Bilirubin, Total 0.3 0.0-1.2 Alkaline Phosphatase, S 68 39-117 AST (SGOT) 18 0-40 ALT (SGPT) 14 0-32 A1C (IN HOUSE) 2016-03-19 A1C IN HOUSE 6.1 4.3 - 5.6 % Previous A1c 6.0 Lot [id number] Exp date URINE DRUG SCREEN (IN HOUSE) 2016-03-19 Lot # [id number] Exp date Control + COCAINE Negative AMPH Negative MTD Negative THC Negative OPIATE Negative BENZO Positive PCP Negative BAR Negative OXY Negative MAMP Negative TCA Negative BUP Negative MDMA Negative PROCEDURES Procedure Date Ordered Related Diagnosis Body Site ASSAY THYROID STIM HORMONE Mar 19, 2016 COMPLETE CBC W/AUTO DIFF WBC Mar 19, 2016 GLYCATED HEMOGLOBIN TEST Mar 19, 2016 COMPREHEN METABOLIC PANEL Mar 19, 2016 LIPID PANEL Mar 19, 2016 DRUG SCREEN NON TLC DEVICES Mar 19, 2016 VENIPUNCT, ROUTINE* Mar 19, 2016 IMMUNIZATIONS No Known Immunizations
--- OUTSIDE RECORDS SUMMARY | 2018-01-18 14:12 | XMS REPORT ---
Author Author DANIEL ABARCA [facility] Address [address] [place] [address] Care Team Providers Care Therapy Coordinator Name Role Phone JAY HOFFMANNDANIEL NOVA Unavailable PROBLEMS Type Condition ICD9-CM Code LGZ87-LQ Code Onset Dates Condition Status SNOMED Code Problem Post traumatic stress disorder (PTSD) F43.10 Active 89995431 Problem Psychophysiological insomnia F51.04 Active 423073918 Problem Essential (primary) hypertension I10 Active 33614519 Problem Bilateral low back pain without sciatica, unspecified chronicity M54.5 Active 728565799 Problem Forgetfulness R68.89 Active 57233615 Problem Severe episode of recurrent major depressive disorder, without psychotic features F33.2 Active 33246691 Problem Anxiety, generalized F41.1 Active 39528972 Problem Pinched nerve in neck G58.8 Active 13683356 Problem Type 2 diabetes mellitus without complication, without long-term current use of insulin E11.9 Active 330690225 Problem Vaginal dryness, menopausal N95.1 Active 96640718 Problem Mild intermittent asthma with acute exacerbation J45.21 Active 163067817 Problem Chronic nonintractable headache, unspecified headache type R51 Active 99430387 Problem Vitreous floaters of right eye H43.391 Active 12215608 ALLERGIES Substance Reaction Event Type Date Status Penicillin V Potassium anaphylaxis Drug Allergy Aug, Active ENCOUNTERS Encounter Location Date Diagnosis [facility] [address] [facility] [id number] [address] Jun, [facility] [id number] [id number] May, Cervicalgia M54.2 [facility] [address] [id number] [address] May, Pinched nerve in neck G58.8 [facility] [id number] [place] [address] Apr, Post traumatic stress disorder (PTSD) F43.10 ; Severe episode of recurrent major depressive disorder, without psychotic features F33.2 and Psychophysiological insomnia F51.04 [facility] [id number] [place] [address] Apr, [facility] [id number] [place] [phone] Apr, Mild intermittent asthma with acute exacerbation J45.21 [facility] [id number] [place] [phone] Apr, Chronic nonintractable headache, unspecified headache type R51 [place] [address] [address] Mar, Post traumatic stress disorder (PTSD) F43.10 ; Severe episode of recurrent major depressive disorder, without psychotic features F33.2 and Psychophysiological insomnia F51.04 [place] [id number] [place] [address] Mar, Post traumatic stress disorder (PTSD) F43.10 [place] [id number] [place] [id number] Mar, Type 2 diabetes mellitus without complication, without long-term current use of insulin E11.9 ; Bilateral low back pain without sciatica, unspecified chronicity M54.5 and Chronic nonintractable headache, unspecified headache type R51 [place] [id number] [place] [address] Feb, [facility] [id number] [place] [address] [id number] Jan, Vitreous floaters of right eye H43.[address] [id number] [place] [phone] Jan, [place] [id number] [place] [address] 22 Nov, 2016 Post traumatic stress disorder (PTSD) F43.10 ; Severe episode of recurrent major depressive disorder, without psychotic features F33.2 ; Psychophysiological insomnia F51.04 and Homeless Z59.0 [facility] [id number] [place] [address] Oct, Post traumatic stress disorder (PTSD) F43.10 ; Severe episode of recurrent major depressive disorder, without psychotic features F33.2 and Psychophysiological insomnia F51.04 [facility] [id number] [place] [phone] Oct, Vaginal dryness, menopausal N95.1 and Dyspareunia in female N94.10 [facility] [id number] [place] [phone] Oct, [facility] [address] [address] Aug, Post traumatic stress disorder (PTSD) F43.10 ; Severe episode of recurrent major depressive disorder, without psychotic features F33.2 and Psychophysiological insomnia F51.04 [facility] [id number] [place] [phone] Aug, [facility] [id number] [place] [address] [phone] Aug, Well woman exam Z01.419 and Vaginal dryness, menopausal N95.1 [facility] [id number] [place] [address] July, [facility] [id number] [place] [address] July, [facility] [address] [address] July, Post traumatic stress disorder (PTSD) F43.10 ; Severe episode of recurrent major depressive disorder, without psychotic features F33.2 and Psychophysiological insomnia F51.04 [facility] [id number] [place] [phone] July, Mass of left lung R91.8 [facility] [address] [place] [address] 17 Apr, 2017 Shortness of breath R06.02 ; Wheezing R06.2 and Mild intermittent asthma with acute exacerbation J45.21 [facility] [address] [address] May, Post traumatic stress disorder (PTSD) F43.10 ; Severe episode of recurrent major depressive disorder, without psychotic features F33.2 ; Essential (primary) hypertension I10 and Psychophysiological insomnia F51.04 [facility] [id number] [phone] May, 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 and Headache, unspecified headache type R51 [facility] [address] [address] Apr, [facility] [address] [place] [address] Apr, Post traumatic stress disorder (PTSD) F43.10 ; Severe episode of recurrent major depressive disorder, without psychotic features F33.2 ; Essential (primary) hypertension I10 and Psychophysiological insomnia F51.04 [facility] [address]65[address] [address] Mar, Post traumatic stress disorder (PTSD) F43.10 and Severe episode of recurrent major depressive disorder, without psychotic features F33.2 [facility] [address]65[address] [address] Feb, Post traumatic stress disorder (PTSD) F43.10 [facility] [address]65[address] [address] Feb, Post traumatic stress disorder (PTSD) F43.10 and Severe episode of recurrent major depressive disorder, without psychotic features F33.2 [facility] [id number], [place] [id number] Feb, Anxiety, generalized F41.1 and Severe episode of recurrent major depressive disorder, without psychotic features F33.2 [facility] [address] [address] Feb, Severe episode of recurrent major depressive disorder, without psychotic features F33.2 and Anxiety, generalized F41.1 [facility] [id number], [place] [phone] Aug, [facility] [id number] [place] [phone] May, Forgetfulness R68.89 and Bilateral low back pain without sciatica, unspecified chronicity M54.5 [facility] [id number] [place] [address] [phone] Apr, Forgetfulness R68.89 [facility] [id number] [place] [address] [phone] Jan, Irritant contact dermatitis due to other chemical products L24.5 [facility] [id number] [place] [address] [phone] Sep, Nausea vomiting and diarrhea 787.91 [facility] [id number] [place] [address] Jun, [facility] [id number] [place] [address]- [address] Jun, [facility] [id number] [place] [address]- [address] July, [facility] [id number] [place] [address] [id number] July, [facility] [id number] [place] [address] [phone] Jun, [facility] [id number] [place] [address] Jun, [facility] [id number], [place] [phone] May, [facility] [id number] [place] [address]- [address] May, [facility] [id number] [place] [phone] May, [facility] [id number] [place] [address] May, [facility] [address] [facility] [id number] [address] May, [facility] [address] [facility] [id number] [place] [address] May, [facility] [address] [id number][place] [phone] Apr, [facility] [address] [facility] [id number] [place] [address] Apr, [facility] [address] [id number] [place] [phone] Apr, [facility] [address] [facility] [id number] [place] [address] Apr, [facility] [address] [id number][place] [phone] Apr, [facility] [address] [address] Apr, [facility] [address] [id number], [place] [phone] Apr, [facility] [address] [facility] [id number] [place] [address] Apr, [facility] [address] [id number], [place] [phone] Apr, [facility] [address] [id number] [address] Apr, [facility] [address] [facility] [id number] [place] [address] Jan, [facility] [address] [facility] [id number] [address] Jan, [facility] [address] [id number], [place] [phone] Dec, [facility] [address] [id number][place] [phone] Oct, [facility] [address] [id number], [place] [phone] Sep, [facility] [address] [facility] [id number][place] [phone] Aug, [facility] [address] [facility] [id number][place] [phone] Aug, [facility] [address] [facility] [id number][place] [phone] Jun, [facility] [address] [facility] [id number][place] [phone] May, [facility] [address] [facility] [id number], [place] [phone] May, [facility] [address] [facility] [id number] [place] [address] Apr, IMMUNIZATIONS No Known Immunizations SOCIAL HISTORY Never Assessed REASON FOR VISIT Well Woman Exam , vaginal tenderness and drying Jose RN PLAN OF CARE Activity Details Follow Up prn Reason: VITAL SIGNS Height 64.75 in 2016-09-11 Weight 237.8 lbs 2016-09-11 Temperature 97.5 degrees Fahrenheit 2016-09-11 Heart Rate 63 bpm 2016-09-11 Respiratory Rate 18 2016-09-11 BMI 39.87 kg/m2 2016-09-11 Blood pressure systolic 128 mmHg 2016-09-11 Blood pressure diastolic 62 mmHg 2016-09-11 MEDICATIONS Medication Instructions Dosage Frequency Start Date [...] day 1 tablet 24h 30 days Active Premarin 0.625 MG/GM Vaginal Daily for Three Weeks, 1 Week off then every other day for 3 weeks, then twice weekly 1 gram Aug, Active Ibuprofen 800 MG Orally Three times a day 1 tablet 8h May, Active ProAir HFA 108 (90 Base) MCG/ACT Inhalation every 4 hrs 2 puffs as needed 4h Jun, 12 months Active RESULTS Name Result Date Reference Range BACTERIAL VAGINOSIS (IN HOUSE) 2016-09-11 RESULTS negative Control positive Lot # [id number] Exp date 05/11 CULTURE, GENITAL 2016-09-11 Genital Culture, Routine Final report Result 1 PAP TEST W/ HPV REGARDLESS 2016-09-11 DIAGNOSIS: Specimen adequacy: Clinician provided ICD10: Performed by: . . Note: HPV, high-risk Negative Negative HEMOCCULT (IN HOUSE) RESULTS negative Control positive Lot # [id number] Exp date 01/06 PDF Report 2016-09-11 PDF Report1 LCLS Mammogram, Bilateral Screening 2016-09-23 PROCEDURES Procedure Date Ordered Result Body Site PHILLIPS VAG, DNA, DIR PROBE September 11, 2016 CULTURE, BACTERIA, OTHER September 11, 2016 TEST FOR BLOOD, FECES September 11, 2016 SPECIMEN HANDLING September 11, 2016 INSTRUCTIONS MEDICATIONS ADMINISTERED No Known Medications MEDICAL [...]
[2018-01-18] MEDS: NITROGLYCERIN 0.4 MG SL TABS BTL 25'S SL PRN ×3 (14:14→14:25)
[2018-01-18 14:15] LABS: BASOPHILS % (AUTO) 0 % (0-10); EOSINOPHILS # (AUTO) 0.3 10^3/uL (0.0-0.3); EOSINOPHILS % (AUTO) 3 % (0-10); HEMATOCRIT 42 % (35-52); HEMOGLOBIN 14.2 G/DL (11.5-16.0); LYMPHOCYTES # (AUTO) 3.7 X 10^3 (1.0-4.0); LYMPHOCYTES % (AUTO) 35 % (12-44); MEAN CORPUSCULAR HEMOGLOBIN 32 PG (25-34); MEAN CORPUSCULAR HGB CONC 34 G/DL (32-36); MEAN CORPUSCULAR VOLUME 95 FL (80-99); MONOCYTES # (AUTO) 0.9 X 10^3 (0.0-1.0); MONOCYTES % (AUTO) 8 % (0-12); NEUTROPHILS # (AUTO) 5.7 X 10^3 (1.8-7.8); NEUTROPHILS % (AUTO) 54 % (42-75); PLATELET COUNT 322 10^3/uL (130-400); RED BLOOD COUNT 4.43 10^6/uL (4.35-5.85); RED CELL DISTRIBUTION WIDTH 13.3 % (10.0-14.5); WHITE BLOOD COUNT 10.5 10^3/uL (4.3-11.0)
[2018-01-18] MEDS ORDERED: ASPIRIN 81 MG CHEW (CHILDREN'S ASA) PO ONE (14:15)
[2018-01-18 14:27] LABS: INR 0.9 (0.8-1.4); PROTHROMBIN TIME PATIENT 12.4 SEC (12.2-14.7)
--- NOTE | 2018-01-18 14:30 | Diagnostic Imaging Report ---
Indication: Chest pain. Time of exam: 2:22 PM No prior studies are available for comparison. There is some minimal linear scarring in the left base. Otherwise lungs are clear. No infiltrate or failure is seen. No effusion or pneumothorax is identified. Impression: No acute cardiopulmonary process is detected. Dictated by: Dictated on workstation # [id number]
[2018-01-18 14:35] LABS: ALANINE AMINOTRANSFERASE 20 U/L (0-55); ALBUMIN 4.1 GM/DL (3.2-4.5); ALKALINE PHOSPHATASE 63 U/L (40-136); BILIRUBIN,TOTAL 0.2 MG/DL (0.1-1.0); BUN/CREATININE RATIO 13; CALCIUM 9.8 MG/DL (8.5-10.1); CARBON DIOXIDE 18 MMOL/L (21-32); CHLORIDE 107 MMOL/L (98-107); CREATININE SERUM 0.72 MG/DL (0.60-1.30); GFR ESTIMATED > 60; GLUCOSE 158 MG/DL (70-105); MAGNESIUM 2.6 MG/DL (1.8-2.4); POTASSIUM 4.9 MMOL/L (3.6-5.0); SODIUM 134 MMOL/L (135-145); TOTAL PROTEIN 7.5 GM/DL (6.4-8.2)
[2018-01-18 14:41] LABS: MYOGLOBIN SERUM 45.1 NG/ML (10.0-92.0)
--- NOTE | 2018-01-18 14:45 | ED Chest Pain ---
General Chief Complaint: Chest Pain Stated Complaint: CHEST PAIN Source: patient Exam Limitations: no limitations History of Present Illness Date Seen by Provider: Jan 18, 2018 Time Seen by Provider: 14:00 Initial Comments Here with report of left-sided chest pain that started at 930 this morning. Pain is nonradiating. It was associated with some nausea and shortness of breath and has persisted since. She has tried tbfz-zxo-qggzcgh antacids and that did not help. Reports pain worse when lying on the floor. Timing/Duration: 4-6 hours Severity/Quality: moderate, aching, pressure Location: central Radiation: no radiation Activities at Onset: none Prior CP/Workup: no prior cardiac workup Modifying Factors: improves with rest ASA po UNIVERSITY REGISTRAR: No NTG SL UNIVERSITY REGISTRAR: No Associated Symptoms: No abdominal pain; diaphoresis; No fever/chills; nausea/ vomiting, shortness of breath Allergies and Home Medications Allergies Coded Allergies: Penicillins (Verified Allergy, Unknown, 01/18/18) Patient Home Medication List Home Medication List Reviewed: Yes Review of Systems Review of Systems Constitutional: see HPI; No chills, No fever EENTM: No Symptoms Reported Respiratory: See HPI Cardiovascular: See HPI Gastrointestinal: No Symptoms Reported Genitourinary: No Symptoms Reported Musculoskeletal: no symptoms reported Skin: no symptoms reported Psychiatric/Neurological: No Symptoms Reported All Other Systems Reviewed Negative Unless Noted: Yes Past Uuqkzyf-Uwnuau-Ujzxzj Hx Past Med/Social Hx: Reviewed Nursing Past Med/Soc Hx Patient Social History Alcohol Use: Denies Use Recreational Drug Use: No Smoking Status: Never a Smoker Past Medical History Surgeries: No Respiratory: Yes Asthma Cardiac: No Neurological: No : No Genitourinary: No Gastrointestinal: No Endocrine: Yes Diabetes, Non-Insulin dep (diet controlled) Psychosocial: Yes Anxiety, Depression Family Medical History Reviewed Nursing Family Hx Heart Disease, CAD Under 55 Years Old Physical Exam Vital Signs Vital Signs - First Documented Capillary Refill : Height, Weight, BMI Height: '" Weight: lbs. oz. kg; BMI Method: General Appearance: No Apparent Distress, WD/WN HEENT: PERRL/EOMI, Pharynx Normal Neck: Non Tender, Supple Respiratory: Lungs Clear, Normal Breath Sounds Cardiovascular: Regular Rate, Rhythm, No Murmur Gastrointestinal: Non Tender, Soft Extremity: Normal Range of Motion, Non Tender Neurologic/Psychiatric: Alert, Oriented x3 Skin: Normal Color, Warm/Dry Progress/Results/Core Measures Results/Orders Lab Results Laboratory Tests Test 01/18/18 14:09 Range/Units White Blood Count 10.5 4.3-11.0 10^3/uL Red Blood Count 4.43 4.35-5.85 10^6/uL Hemoglobin 14.2 11.5-16.0 G/DL Hematocrit 42 35-52 % Mean Corpuscular Volume 95 80-99 FL Mean Corpuscular Hemoglobin 32 25-34 PG Mean Corpuscular Hemoglobin Concent 34 32-36 G/DL Red Cell Distribution Width 13.3 10.0-14.5 % Platelet Count 322 130-400 10^3/uL Mean Platelet Volume 10.0 7.4-10.4 FL Neutrophils (%) (Auto) 54 42-75 % Lymphocytes (%) (Auto) 35 12-44 % Monocytes (%) (Auto) 8 0-12 % Eosinophils (%) (Auto) 3 0-10 % Basophils (%) (Auto) 0 0-10 % Neutrophils # (Auto) 5.7 1.8-7.8 X 10^3 Lymphocytes # (Auto) 3.7 1.0-4.0 X 10^3 Monocytes # (Auto) 0.9 0.0-1.0 X 10^3 Eosinophils # (Auto) 0.3 0.0-0.3 10^3/uL Basophils # (Auto) 0.0 0.0-0.1 10^3/uL Prothrombin Time 12.4 12.2-14.7 SEC INR Comment 0.9 0.8-1.4 Activated Partial Thromboplast Time 27 24-35 SEC D-Dimer 0.45 0.00-0.49 UG/ML Sodium Level 134 L 135-145 MMOL/L Potassium Level 4.9 3.6-5.0 MMOL/L Chloride Level 107 98-107 MMOL/L Carbon Dioxide Level 18 L 21-32 MMOL/L Anion Gap 9 5-14 MMOL/L Blood Urea Nitrogen 9 7-18 MG/DL Creatinine 0.72 0.60-1.30 MG/DL Estimat Glomerular Filtration Rate > 60 BUN/Creatinine Ratio 13 Glucose Level 158 H 70-105 MG/DL Calcium Level 9.8 8.5-10.1 MG/DL Corrected Calcium 9.7 8.5-10.1 MG/DL Magnesium Level 2.6 H 1.8-2.4 MG/DL Total Bilirubin 0.2 0.1-1.0 MG/DL Aspartate Amino Transf (AST/SGOT) 28 5-34 U/L Alanine Aminotransferase (ALT/SGPT) 20 0-55 U/L Alkaline Phosphatase 63 40-136 U/L Myoglobin 45.1 10.0-92.0 NG/ML Troponin I < 0.30 <0.30 NG/ML Total Protein 7.5 6.4-8.2 GM/DL Albumin 4.1 3.2-4.5 GM/DL My Orders Orders - NICOLE HUMPHRIES MD Cbc With Automated Diff (01/18/18 14:08) Magnesium (01/18/18 14:08) Chest 1 View, Ap/Pa Only (01/18/18 14:08) Ekg Tracing (01/18/18 14:08) Cardiac Profile 1 (01/18/18 14:08) Comprehensive Metabolic Panel (01/18/18 14:08) Myoglobin Serum (01/18/18 14:08) Protime With Inr (01/18/18 14:08) Partial Thromboplastin Time (01/18/18 14:08) O2 (01/18/18 14:08) Monitor-Rhythm Ecg Trace Only (01/18/18 14:08) Lipid Panel (01/19/18 06:00) Aspirin Chewable Tablet (Baby Aspirin Ch (01/18/18 14:15) Nitroglycerin 0.4 Mg Btl 25's (Nitrostat (01/18/18 14:15) Saline Lock/Iv-Start (01/18/18 14:08) Fibrin Degradation Products (01/18/18 15:03) Nitroglycerin Ointment (Nitrobid Ointme (01/18/18 15:30) Nitroglycerin Ointment (Nitrobid Ointme (01/18/18 15:23) Medications Given in ED Current Medications Medications Dose Ordered Sig/Nicole Route Start Time Stop Time Status Last Admin Dose Admin Aspirin 324 mg ONCE ONCE PO 01/18/18 14:15 01/18/18 14:16 DC 01/18/18 14:12 324 MG Nitroglycerin 0.4 mg UD PRN SL 01/18/18 14:15 01/18/18 14:47 DC 01/18/18 14:25 0.4 MG Nitroglycerin 1 inch ONCE ONCE TOP 01/18/18 15:30 01/18/18 15:31 DC 01/18/18 15:25 1 INCH Vital Signs/I&O 01/18/18 01/18/18 01/18/18 14:01 14:01 14:01 Temp 97.5 Pulse 59 Resp 18 B/P (MAP) 180/99 (126) Pulse Ox 99 99 O2 Delivery Nasal Cannula Nasal Cannula O2 Flow Rate 2.00 2.00 2.00 Progress Progress Note : Progress Note Seen and evaluated. IV, labs, EKG, chest x-ray, ASA 324 mg by mouth and nitroglycerin sublingual ordered. Monitor patient. Patient received 3 nitroglycerin sublingual and this did resolve her pain. 1600: Patient had return of pain and 1 inch of Nitropaste was placed. This did help resolve her pain again. She is undifferentiated with respect to cardiac events and has no history of evaluation. She does have significant family history with early heart in her mother and father. Due to the persistence of pain and family history, patient would be best suited for inpatient evaluation. I did discuss the case with Dr. Novak at 1555 and he agrees to see patient in consult and recommends 2-D cardiac echo in the morning as well as Lexiscan stress test tomorrow in the morning. These were ordered. I did discuss the case with Dr. Suarez at 1558 she accepts patient for admission, observation status. Patient agrees with plan. Initial ECG Impression Date: Jan 18, 2018 Initial ECG Impression Time: 14:02 Initial ECG Rate: 62 Initial ECG Rhythm: Normal Sinus Comment [facility] [place] [place] NAME: MARSHALL WATSON Sinus rhythm with normal axis. No evidence of ST elevation [place]. No previous available for comparison. Interpreted by me. Diagnostic Imaging Diagonstic Imaging: Xray Plain Films/CT/US/NM/MRI: chest Comments [facility] [place] [place] NAME: MARSHALL WATSON MED REC#: [id number] PT STATUS: REG ER : 1955 PHYSICIAN: NICOLE HUMPHRIES MD ADMIT DATE: 01/18/18/ER Draft Date of Exam:01/18/18 CHEST 1 VIEW, AP/PA ONLY Indication: Chest pain. Time of exam: 2:22 PM No prior studies are available for comparison. There is some minimal linear scarring in the left base. Otherwise lungs are clear. No infiltrate or failure is seen. No effusion or pneumothorax is identified. Impression: No acute cardiopulmonary process is detected. Dictated on workstation # [id number] Dict: 01/18/18 1428 Trans: 01/18/18 1429 [facility] [id number] Interpreted by: CHANTELL GALICIA MD Electronically signed by: Departure Communication (Admissions) Time/Spoke to Admitting Phy: 15:58 Time/Spoke to Consulting Phy: 15:55 Impression Primary Impression: Chest pain Qualified Codes: R07.9 - Chest pain, unspecified Disposition: ADMITTED INPATIENT Condition: Stable Admissions Decision to Admit Reason: Admit from ER (General) Decision to Admit/Date: Jan 18, 2018 Time/Decision to Admit Time: 15:55 Departure-Patient Inst. Referrals: RC FLORES (PCP/Family) Primary Care Physician NICOLE HUMPHRIES MD Jan 18, 2018 14:45
[2018-01-18] MEDS ORDERED: ZOLP5TAB7 PO (14:56)
[2018-01-18] MEDS ORDERED: TRAZ-189 PO (14:56)
[2018-01-18] MEDS ORDERED: ARIP5TAB20 PO (14:56)
[2018-01-18] MEDS ORDERED: NITROGLYCERIN 2% OINT 1 GM UNIT DOSE PACKET ONE (15:23)
[2018-01-18] MEDS ORDERED: NITROGLYCERIN 2% OINT 1 GM UNIT DOSE PACKET TOP ONE (15:30)
--- OUTSIDE RECORDS SUMMARY | 2018-01-18 16:46 | XMS REPORT | Continuity of Care Document ---
Author Author [facility] Address Unknown Phone Unavailable Allergies Active Description Code Type Severity Reaction Onset Reported/Identified Relationship to Patient Clinical Status Yes Penicillins Drug Allergy 05/04/2008 Yes Penicillins Drug Allergy N/A N/A 05/04/2008 Yes No Allergy Information Available [id number] Drug Allergy Unknown N/A 2016 Medications There [...] DO, LEANDRO K NODX NO DIAGNOSIS 12/23/2012 GOMZE DO, LEANDRO K NODX NO DIAGNOSIS 12/23/2012 [...] 472.0 CHRONIC RHINITIS 08/27/2015 VITT, VERA M LAYOUT OPERATOR Ot D64.9 ANEMIA, UNSPECIFIED 08/27/2015 VITT, VERA M LAYOUT OPERATOR Ot F32.9 MAJOR DEPRESSIVE DISORDER, SINGLE EPISOD 08/27/2015 VITT, VERA M LAYOUT OPERATOR Ot Z51.81 ENCOUNTER FOR THERAPEUTIC DRUG LEVEL MON 08/29/2015 TONIA SALGUERO MD (DDU) Ot Z02.71 ENCOUNTER FOR DISABILITY DETERMINATION 08/10/2016 VITT, VERA M LAYOUT OPERATOR Ot D64.9 ANEMIA, UNSPECIFIED 08/10/2016 VITT, VERA M LAYOUT OPERATOR Ot F32.9 MAJOR DEPRESSIVE DISORDER, SINGLE EPISOD 08/10/2016 VITT, VERA M LAYOUT OPERATOR Ot Z51.81 ENCOUNTER FOR THERAPEUTIC DRUG LEVEL MON 08/10/2016 TONIA SALGUERO MD (DDU) Ot Z02.71 ENCOUNTER FOR DISABILITY DETERMINATION 08/12/2016 VITT, VERA M LAYOUT OPERATOR Ot D64.9 ANEMIA, UNSPECIFIED 08/12/2016 VITT, VERA M LAYOUT OPERATOR Ot F32.9 MAJOR DEPRESSIVE DISORDER, SINGLE EPISOD 08/12/2016 VITT, VERA M LAYOUT OPERATOR Ot Z51.81 ENCOUNTER FOR THERAPEUTIC DRUG LEVEL [...] Procedures Code Description [place] [address] OXIMETRY 05/20/2012 93306 A1C (IN-HOUSE) 05/20/2012 99673 NO CHARGE 12/23/2012 13610 CULTURE WOUND (AEROBIC) 05/18/2013 32396 I/D SIMPLE ABSCESS 05/18/2013 D9999 UNSPECIFIED PROCEDURE 05/20/2013 43926 MICRO ALBUMIN-IN HOUSE 07/12/2013 30523 A1C (IN-HOUSE) 07/12/2013 25246 OXIMETRY 08/02/2013 01727 STREP A (IN-HOUSE) 08/02/2013 J7613 ALBUTEROL UNIT [...] - 03/19/16 09:29 TSH 0.554 uIU/mL 0.450-4.500 [id number] - 08/13/16 12:43 Serum or plasma urea nitrogen measurement (mass/volume) 11 mg/dL 7-18 Serum or plasma creatinine measurement (mass/volume) 0.82 mg/dL 0.60-1.30 Serum or plasma urea nitrogen/creatinine mass ratio 13 NRG Serum or plasma creatinine measurement with calculation of estimated glomerular filtration rate > NRG Complete blood count (CBC) with automated white blood cell (WBC) differential - 01/18/18 14:09 Blood leukocytes automated count (number/volume) 10.5 10*3/uL 4.3-11.0 Blood erythrocytes automated count (number/volume) 4.43 10*6/uL 4.35-5.85 Venous blood hemoglobin measurement (mass/volume) 14.2 g/dL 11.5-16.0 Blood hematocrit (volume fraction) 42 % 35-52 Automated erythrocyte mean corpuscular volume 95 [foz_us] 80-99 Automated erythrocyte mean corpuscular hemoglobin (mass per erythrocyte) 32 pg 25-34 Automated erythrocyte mean corpuscular hemoglobin concentration measurement ( mass/volume) 34 g/dL 32-36 Automated erythrocyte distribution width ratio 13.3 % 10.0-14.5 Automated blood platelet count (count/volume) 322 10*3/uL 130-400 Automated blood platelet mean volume measurement 10.0 [foz_us] 7.4-10.4 Automated blood neutrophils/100 leukocytes 54 % 42-75 Automated blood lymphocytes/100 leukocytes 35 % 12-44 Blood monocytes/100 leukocytes 8 % 0-12 Automated blood eosinophils/100 leukocytes 3 % 0-10 Automated blood basophils/100 leukocytes 0 % 0-10 Blood neutrophils automated count (number/volume) 5.7 10*3 1.8-7.8 Blood lymphocytes automated count (number/volume) 3.7 10*3 1.0-4.0 Blood monocytes automated count (number/volume) 0.9 10*3 0.0-1.0 Automated eosinophil count 0.3 10*3/uL 0.0-0.3 Automated blood basophil count (count/volume) 0.0 10*3/uL 0.0-0.1 Comprehensive metabolic panel - 01/18/18 14:09 Serum or plasma sodium measurement (moles/volume) 134 mmol/L 135-145 Serum or plasma potassium measurement (moles/volume) 4.9 mmol/L 3.6-5.0 Serum or plasma chloride measurement (moles/volume) 107 mmol/L 98-107 Carbon dioxide 18 mmol/L 21-32 Serum or plasma anion gap determination (moles/volume) 9 mmol/L 5-14 Serum or plasma urea nitrogen measurement (mass/volume) 9 mg/dL 7-18 Serum or plasma creatinine measurement (mass/volume) 0.72 mg/dL 0.60-1.30 Serum or plasma urea nitrogen/creatinine mass ratio 13 NRG Serum or plasma creatinine measurement with calculation of estimated glomerular filtration rate > NRG Serum or plasma glucose measurement (mass/volume) 158 mg/dL 70-105 Serum or plasma calcium measurement (mass/volume) 9.8 mg/dL 8.5-10.1 Serum or plasma total bilirubin measurement (mass/volume) 0.2 mg/dL 0.1-1.0 Serum or plasma alkaline phosphatase measurement (enzymatic activity/volume) 63 U/L 40-136 Serum or plasma aspartate aminotransferase measurement (enzymatic activity/ volume) 28 U/L 5-34 Serum or plasma alanine aminotransferase measurement (enzymatic activity/volume ) 20 U/L 0-55 Serum or plasma protein measurement (mass/volume) 7.5 g/dL 6.4-8.2 Serum or plasma albumin measurement (mass/volume) 4.1 g/dL 3.2-4.5 CALCIUM CORRECTED 9.7 mg/dL 8.5-10.1 Magnesium - 01/18/18 14:09 Magnesium 2.6 mg/dL 1.8-2.4 Serum or plasma troponin i.cardiac measurement (mass/volume) - 01/18/18 14:09 Serum or plasma troponin i.cardiac measurement (mass/volume) < ng/ mL <0.30 Myoglobin, serum - 01/18/18 14:09 Myoglobin, serum 45.1 ng/mL 10.0-92.0 Fibrin D-dimer FEU measurement in platelet poor plasma (mass/volume) - 14:09 Fibrin D-dimer FEU measurement in platelet poor plasma (mass/volume) 0.45 ug/mL 0.00-0.49 Encounters ACCT No. Visit Date/Time Discharge Status Pt. Type Provider Facility Loc./Unit Complaint [id number] 08/02/2013 08:54:00 08/02/2013 23:59:59 [facility] Outpatient EVELIN LOVELL APRN [id number] 07/12/2013 09:02:00 07/12/2013 23:59:59 [facility] Outpatient LEANDRO GOMEZ DO [id number] 05/29/2013 11:31:00 05/29/2013 23:59:59 [facility] Outpatient LEANDRO GOMEZ DO [id number] 05/22/2013 10:28:00 05/22/2013 23:59:59 [facility] Outpatient LEANDRO GOMEZ DO [id number] 05/20/2013 13:52:00 05/20/2013 23:59:59 [facility] Outpatient LEANDRO GOMEZ DO [id number] 05/18/2013 11:22:00 05/18/2013 23:59:59 [facility] Outpatient LEANDRO GOMEZ DO [id number] 05/16/2013 13:28:00 05/16/2013 23:59:59 [facility] Outpatient LEANDRO GOMEZ DO [id number] 12/23/2012 11:47:00 12/23/2012 23:59:59 [facility] Outpatient SANDRA CUMMINSRC Tobin [id number] 06/20/2012 14:46:00 06/20/2012 23:59:59 [facility] Outpatient SANDRA RC DAMON [id number] 05/27/2012 10:57:00 05/27/2012 23:59:59 [facility] Outpatient SANDRA CUMMINSRC Tobin [id number] 09/02/2012 11:19:00 Document Registration [id number] 09/29/2017 14:00:00 09/29/2017 23:59:59 [facility] Outpatient FLORESRC SEQUEIRA APRN [facility] [id number] 09/23/2016 14:58:00 09/23/2016 23:59:59 [facility] Outpatient DAINEL BROOKS LAYOUT OPERATOR [facility] RAD Z01.419 WELL WOMAN EXAM [id number] 08/13/2016 12:29:00 08/13/2016 23:59:59 [facility] Outpatient RC FLORES CFNP [facility] RAD R91.8 MASS OF LEFT LUNG [id number] 08/27/2015 10:19:00 08/27/2015 23:59:59 [facility] Outpatient TONIA SALGUERO MD (DDU) [facility] RAD DDU [id number] 04/30/2015 09:13:00 04/30/2015 23:59:59 [facility] Outpatient JAELYN PHILLIPS LAYOUT OPERATOR [facility] LAB DEPRESSION [id number] 01/18/2018 14:16:00 Document Registration [id number] 03/20/2016 10:05:00 Document Registration
[2018-01-18 17:20] VITALS: BP 191/80
[2018-01-18] MEDS ORDERED: NITROGLYCERIN 0.4 MG SL TABS BTL 25'S SL PRN (18:30)
[2018-01-18] MEDS ORDERED: NS IV 1000 ML 1,000 ML IV SCH (18:30)
[2018-01-18] MEDS ORDERED: morphine INJ 4 MG/ML 1 ML (VIAL/SYRINGE) IV PRN (18:30)
[2018-01-18] MEDS ORDERED: CATHETER FLUSH 10 ML SYR IV PRN (18:30)
[2018-01-18] MEDS ORDERED: FLU QUADRIvalent (5+ YOA) 2018-2019 (AFLURIA) 0.5 ML IM ONE (18:30)
[2018-01-18 18:38] LABS: BASOPHILS % (AUTO) 0 % (0-10); EOSINOPHILS # (AUTO) 0.3 10^3/uL (0.0-0.3); EOSINOPHILS % (AUTO) 3 % (0-10); HEMATOCRIT 42 % (35-52); HEMOGLOBIN 14.2 G/DL (11.5-16.0); LYMPHOCYTES # (AUTO) 4.1 X 10^3 (1.0-4.0); LYMPHOCYTES % (AUTO) 40 % (12-44); MEAN CORPUSCULAR HEMOGLOBIN 32 PG (25-34); MEAN CORPUSCULAR HGB CONC 34 G/DL (32-36); MEAN CORPUSCULAR VOLUME 95 FL (80-99); MEAN PLATELET VOLUME 9.6 FL (7.4-10.4); MONOCYTES # (AUTO) 0.8 X 10^3 (0.0-1.0); MONOCYTES % (AUTO) 7 % (0-12); NEUTROPHILS # (AUTO) 5.2 X 10^3 (1.8-7.8); NEUTROPHILS % (AUTO) 50 % (42-75); PLATELET COUNT 321 10^3/uL (130-400); RED BLOOD COUNT 4.43 10^6/uL (4.35-5.85); RED CELL DISTRIBUTION WIDTH 13.2 % (10.0-14.5); WHITE BLOOD COUNT 10.4 10^3/uL (4.3-11.0)
[2018-01-18 18:55] LABS: ALANINE AMINOTRANSFERASE 17 U/L (0-55); ALBUMIN 4.1 GM/DL (3.2-4.5); ALKALINE PHOSPHATASE 59 U/L (40-136); BILIRUBIN,TOTAL 0.3 MG/DL (0.1-1.0); BUN/CREATININE RATIO 12; CARBON DIOXIDE 25 MMOL/L (21-32); CHLORIDE 106 MMOL/L (98-107); CHOLESTEROL 173 MG/DL (< 200); CREATINE KINASE 88 U/L (29-168); CREATININE SERUM 0.77 MG/DL (0.60-1.30); GFR ESTIMATED > 60; GLUCOSE 101 MG/DL (70-105); HDL CHOLESTEROL 52 MG/DL (40-60); POTASSIUM 4.2 MMOL/L (3.6-5.0); SODIUM 137 MMOL/L (135-145); TOTAL PROTEIN 7.3 GM/DL (6.4-8.2); TRIGLYCERIDES 93 MG/DL (<150); VLDL CHOLESTEROL 19 MG/DL (5-40)
[2018-01-18 19:01] LABS: MYOGLOBIN SERUM 52.6 NG/ML (10.0-92.0)
[2018-01-18] MEDS ORDERED: HYDROcodone/APAP 5 MG/325 MG (LORTAB) TAB PO PRN (19:45)
[2018-01-18 20:45] VITALS: BP 158/65
[2018-01-18] MEDS: inSUlin ASPART (NovoLOG) 1 UNIT/0.01 ML (CHARGE PER UNIT) SC SCH (22:00)
[2018-01-18] MEDS ORDERED: ONDANSETRON 4 MG/2 ML (SDV) Z0FRAN IV PRN (22:30)
[2018-01-19] VITALS: BP 143/65
[2018-01-19 04:00] VITALS: BP 136/63
[2018-01-19] MEDS: inSUlin ASPART (NovoLOG) 1 UNIT/0.01 ML (CHARGE PER UNIT) SC SCH ×2 (05:57→11:18)
[2018-01-19 06:21] LABS: CHOLESTEROL 159 MG/DL (< 200); HDL CHOLESTEROL 49 MG/DL (40-60); TRIGLYCERIDES 109 MG/DL (<150); VLDL CHOLESTEROL 22 MG/DL (5-40)
[2018-01-19] MEDS ORDERED: REGADENOSON 0.4 MG/5 ML SYR (LEXISCAN) IV ONE ×2 (08:49→09:00)
[2018-01-19 08:52] VITALS: BP 151/64
[2018-01-19] MEDS ORDERED: ASPIRIN E.C. 81 MG (ECOTRIN) TAB PO SCH (09:00)
--- NOTE | 2018-01-19 09:08 | Consultation-Cardiology ---
HPI-Cardiology Cardiology Consultation: Date of Consultation 01/19/18 Date of Admission Attending Physician Yaritza Suarez DO Admitting Physician Donald Domingo Consulting Physician Bonnie NOVAK MD HPI: Time Seen by a Provider: 09:07 Chief Complaint: Chest pain This is a 62-year-old lady with history of premature CAD in the family who presents with 2-1/2 hour of substernal chest pain which is not radiating. Moderate intensity. No exacerbating or relieving factors. However rest improved a little bit. Associated with nausea and shortness of breath. She was given nitroglycerin in the ER which relieved the discomfort somewhat but then it came back again. Review of Systems-Cardiology Review of Systems Constitutional: As described under HPI; No As described under HPI, No no symptoms reported, No chills, No fever, No lightheadedness Eyes: No As described under HPI, No no symptoms reported, No blindness, No blurred vision, No contact lenses, No drainage, No decreased acuity, No foreign body sensation, No pain, No vision change Ears/Nose/Throat: No As described under HPI, No no symptoms reported, No chronic hearing loss, No ear discharge, No ear pain, No nasal drainage, No ulcerations Respiratory: No no symptoms reported; As described under HPI; No As described under HPI, No cough, No orthopnea, No shortness of breath, No SOB with excertion Cardiovascular: No no symptoms reported; As described under HPI; No As described under HPI; chest pain; No edema, No irregular heart rate, No lightheadedness, No palpitations Gastrointestinal: No no symptoms reported, No As described under HPI, No abdomen distended, No abdominal pain, No blood streaked bowels, No constipation , No diarrhea, No nausea, No vomiting, No stool coloration changes Genitourinary: No As described under HPI, No burning, No dysuria, No discharge , No frequency, No flank pain, No hematuria, No urgency : Yes : No Musculoskeletal: No no symptoms reported, No As describe under HPI, No back pain, No gout, No joint pain, No joint swelling, No muscle pain, No muscle stiffness, No neck pain, No other Skin: No no symptoms reported, No As described under HPI, No change in color, No change in hair/nails, No dryness, No lesions, No lumps, No rash, No other, No skin related problems, No ulcerations, No rash on exposed areas, No ulcerations on exposed areas Psychiatric/Neurological: No anxiety, No depression, No seizure, No focal weakness, No syncope Hematologic: No bleeding abnormalities All Other Systems Reviewed Negative Unless Noted: Yes [id number] Hx Patient Social History Alcohol Use: Denies Use Recreational Drug Use: No Smoking Status: Never a Smoker Recent Foreign Travel: No Recent Infectious Disease Expo: No Hospitalization with Isolation: Denies Physical Abuse Screen: No Sexual Abuse: No Past Medical History PMH As described under Assessment. Family Medical History Family History: Hypertension 19 FATHER 19 MOTHER Myocardial infarction 19 FATHER ( of heart attack of 57) 19 MOTHER ( of heart attack at age 61) Allergies and Home Medications Allergies Coded Allergies: Penicillins (Verified Allergy, Unknown, 01/18/18) Home Medications Aripiprazole 5 Mg Tablet, 5 MG PO HS, (Reported) Estrogens Conjugated 30 Gm Cr, VG TWICE WEEKLY, (Reported) Gluc 2Kcl/Chondr/Chris Hy/Hy AC 1 Each Capsule, 1 CAP PO BID, (Reported) Trazodone HCl 50 Mg Tablet, 50 MG PO HS, (Reported) Trazodone HCl 50 Mg Tablet, 25 MG PO 0800,1730, (Reported) TAKES 1/2 (50MG) TABLET Vitamin B Complex 1 Each Tablet, 1 TAB PO DAILY, (Reported) Zolpidem Tartrate 5 Mg Tablet, 5 MG PO HS, (Reported) [Vitamin C W/Zinc] , 1 TAB PO DAILY, (Reported) Patient Home Medication List Home Medication List Reviewed: Yes Physical Exam-Cardiology Physical Exam Vital Signs/I&O 01/19/18 01/19/18 01/19/18 01/19/18 00:00 01:00 04:00 07:00 Temp 97.6 98.4 Pulse 60 61 55 62 Resp 16 20 B/P (MAP) 143/65 (91) 136/63 (87) Pulse Ox 93 95 O2 Delivery Room Air Room Air 01/19/18 01/19/18 01/19/18 08:52 10:10 10:32 Pulse 60 59 Resp 16 18 B/P (MAP) 151/64 (93) 148/67 (94) Pulse Ox 98 99 O2 Delivery Room Air Room Air Room Air 01/19/18 00:00 Intake Total 450 ml Balance 450 ml Capillary Refill : Less Than 3 Seconds Constitutional: appears stated age, AAO x 3; No apparent distress; well- developed, well-nourished HEENT: PERRL; No normal ENT inspection, No TMs normal, No pharynx normal, No scleral icterus (R), No scleral icterus (L), No pale conjunctivae (R), No pale conjunctivae (L), No photophobia, No TM abnormal (R), No TM abnormal (L), No pharyngeal erythema, No tonsillar exudate, No other, No discharge, No EOMI; hearing is well preserved; No hard of hearing; oral hygience is good; No ulceration, No xanthelasmas are seen Neck: No non-tender, No full range of motion, No supple, No normal inspection, No carotid bruit, No limited range of motion, No lymphadenopathy (R), No lymphadenopathy (L), No tender lateral, No tender midline, No thyromegaly, No other; carotid pulses are 2 + bilaterally; No with good upstrokes Respiratory: No accessory muscle use, No respiratory distress, No chest tender , No chest expansion is symmetric; chest is bilaterally symmetric; No lungs clear to percussion; lungs clear to auscultation; No crackles, No rhonchi, No rales, No stridor, No wheezing, No pleural rub, No other Cardiovascular: regular rate-rhythm; No irregularly irregular, No extra beats, No parasternal heave is noted, No JVD, No edema, No bradycardia, No tachycardia , No point of maximal impulse, No cardiac thrills are palpable; S1 and S2; No gallop/S3, No gallop/S4, No diastolic murmur, No systolic murmur, No friction rub, No click, No other Gastrointestinal: No tender, No soft, No round, No distended, No pulsatile mass , No organomegaly, No guarding, No rebound, No tenderness, No hernia, No mass, No audible bowel sounds, No abnormal bowel sounds, No abdominal bruits, No spleenomegaly, No other Rectal: deferred Extremities: No normal range of motion, No non-tender, No normal inspection, No pedal edema, No calf tenderness, No normal capillary refill, No pelvis stable , No calf tenderness, No inflammation, No pedal edema, No slow capillary refill , No swelling, No other, No abrasion, No clubbing, No cyanosis, No ecchymosis, No laceration, No no lower extremity edema bilateral, No significant edema, No tenderness, No wound Neurologic/Psychiatric: no motor/sensory deficits, alert, normal mood/affect, oriented x 3, power is 5/5 both on sides Skin: No normal color, No warm/dry, No cyanosis, No cool, No diaphoresis, No damp, No ecchymosis, No jaundice, No mottled, No pallor, No rash, No tattoos/ piercings, No ulcerations, No rash on exposed areas, No ulcerations on exposed areas, No other Data Review Labs Laboratory Tests 01/18/18 14:09: White Blood Count 10.5, Red Blood Count 4.43, Hemoglobin 14.2, Hematocrit 42, Mean Corpuscular Volume 95, Mean Corpuscular Hemoglobin 32, Mean Corpuscular Hemoglobin Concent 34, Red Cell Distribution Width 13.3, Platelet Count 322, Mean Platelet Volume 10.0, Neutrophils (%) (Auto) 54, Lymphocytes (%) (Auto) 35 , Monocytes (%) (Auto) 8, Eosinophils (%) (Auto) 3, Basophils (%) (Auto) 0, Neutrophils # (Auto) 5.7, Lymphocytes # (Auto) 3.7, Monocytes # (Auto) 0.9, Eosinophils # (Auto) 0.3, Basophils # (Auto) 0.0, Prothrombin Time 12.4, INR Comment 0.9, Activated Partial Thromboplast Time 27, D-Dimer 0.45, Sodium Level 134L, Potassium Level 4.9, Chloride Level 107, Carbon Dioxide Level 18L, Anion Gap 9, Blood Urea Nitrogen 9, Creatinine 0.72, Estimat Glomerular Filtration Rate > 60, BUN/Creatinine Ratio 13, Glucose Level 158H, Calcium Level 9.8, Corrected Calcium 9.7, Magnesium Level 2.6H, Total Bilirubin 0.2, Aspartate Amino Transf (AST/SGOT) 28, Alanine Aminotransferase (ALT/SGPT) 20, Alkaline Phosphatase 63, Myoglobin 45.1, Troponin I < 0.30, Total Protein 7.5, Albumin 4.1 01/18/18 18:28: White Blood Count 10.4, Red Blood Count 4.43, Hemoglobin 14.2, Hematocrit 42, Mean Corpuscular Volume 95, Mean Corpuscular Hemoglobin 32, Mean Corpuscular Hemoglobin Concent 34, Red Cell Distribution Width 13.2, Platelet Count 321, Mean Platelet Volume 9.6, Neutrophils (%) (Auto) 50, Lymphocytes (%) (Auto) 40, Monocytes (%) (Auto) 7, Eosinophils (%) (Auto) 3, Basophils (%) (Auto) 0, Neutrophils # (Auto) 5.2, Lymphocytes # (Auto) 4.1H, Monocytes # (Auto) 0.8, Eosinophils # (Auto) 0.3, Basophils # (Auto) 0.0, Sodium Level 137, Potassium Level 4.2, Chloride Level 106, Carbon Dioxide Level 25, Anion Gap 6, Blood Urea Nitrogen 9, Creatinine 0.77, Estimat Glomerular Filtration Rate > 60, BUN/ Creatinine Ratio 12, Glucose Level 101, Calcium Level 10.0, Corrected Calcium 9.9, Total Bilirubin 0.3, Aspartate Amino Transf (AST/SGOT) 15, Alanine Aminotransferase (ALT/SGPT) 17, Alkaline Phosphatase 59, Myoglobin 52.6, Total Protein 7.3, Albumin 4.1, Total Creatine Kinase 88, Triglycerides Level 93, Cholesterol Level 173, LDL Cholesterol Direct 110, VLDL Cholesterol 19, HDL Cholesterol 52 01/18/18 21:21: Glucometer 125H 01/19/18 05:30: Troponin I < 0.30, Triglycerides Level 109, Cholesterol Level 159, LDL Cholesterol Direct 101, VLDL Cholesterol 22, HDL Cholesterol 49 01/19/18 05:56: Glucometer 106 ECG Impression ECG Initial ECG Rhythm: Normal Sinus Initial ECG Impression: Normal A/P-Cardiology Assessment/Admission Diagnosis Prolonged episode of chest pain, recurrent chest pain. Premature family history of CAD. Plan Acute coronary syndrome ruled out with serial negative troponin. History of premature CAD and sudden in the family. I will recommend an echocardiogram and a nuclear stress test. If the nuclear stress test is abnormal, coronary angiography will be recommended. Echocardiogram to rule out structural heart disease., Preliminary echocardiogram demonstrates normal LV function with no significant valvular heart disease and no wall motion abnormalities. Thank you for your consultation. Please call me if you have any questions. James Novak MD, FACP, FACC, FSCAI, FHRS, CCDS Interventional Cardiology Cardiac Electrophysiology Vascular Medicine and Endovascular Interventions Clinical Quality Measures AMI/AHF: ASA po Prior to arrival: No DVT/VTE Risk/Contraindication: Risk Factor Score Per Nursin RFS Level Per Nursing on Admit: 3=High Bonnie NOVAK MD Jan 19, 2018 9:07 am
[2018-01-19] MEDS ORDERED: TRAZ-189 PO (10:22)
[2018-01-19] MEDS ORDERED: VITAMIN C PO (10:25)
[2018-01-19] MEDS ORDERED: GLUC-113 PO (10:25)
[2018-01-19] MEDS ORDERED: VITA1TAB17 PO (10:25)
[2018-01-19] MEDS ORDERED: EST30C VG (10:25)
[2018-01-19] MEDS ORDERED: ZINC PO (10:25)
[2018-01-19 10:32] VITALS: BP 148/67
[2018-01-19 12:00] VITALS: BP 148/68
[2018-01-19] MEDS ORDERED: LISI10TA2 PO (12:53)
[2018-01-19] MEDS ORDERED: ATOR40TA70 PO (12:53)
[2018-01-19] MEDS ORDERED: ASPI-983 PO (12:53)
--- NOTE | 2018-01-19 12:59 | Discharge Instructions ---
Discharge [facility] Discharge Medications New, Converted or Re-Newed RX: Transmitted to Pharmacy ([facility]) New Medications: Atorvastatin Calcium (Atorvastatin Calcium) 40 Mg Tablet 40 MG PO DAILY, #30 TAB 3 Refills Lisinopril (Lisinopril) 10 Mg Tablet 10 MG PO DAILY, #30 TAB 3 Refills Aspirin (Aspirin EC) 81 Mg Tablet.dr 81 MG PO DAILY, #100 TAB Continued Medications: Aripiprazole (Aripiprazole) 5 Mg Tablet 5 MG PO HS, TAB Estrogens Conjugated (Premarin) 30 Gm Cr VG TWICE WEEKLY, EA Gluc 2Kcl/Chondr/Chris Hy/Hy AC (Glucosamine & Chondroitin Cap) 1 Each Capsule 1 CAP PO BID, CAP Trazodone HCl (Trazodone HCl) 50 Mg Tablet 50 MG PO HS, TAB Trazodone HCl (Trazodone HCl) 50 Mg Tablet 25 MG PO 0800,1730, TAB TAKES 1/2 (50MG) TABLET Vitamin B Complex (Vitamin B Complex) 1 Each Tablet 1 TAB PO DAILY, TAB [Vitamin C W/Zinc] () 1 TAB PO DAILY Zolpidem Tartrate (Zolpidem Tartrate) 5 Mg Tablet 5 MG PO HS, TAB Patient Instructions Patient Instructions Start Aspirin 81mg daily - may get over the counter. Start atorvastatin (cholesterol medication) to decrease risk of heart disease and stroke (Cardiovascular 10 year risk is 11.5%). Start lisinopril for elevated blood pressure and to protect your kidneys from the effects of diabetes. Goal/Follow Up Appt: Follow up with Gerhard Domingo APRN 01/25/18 at 2:20pm Activity & Diet Discharge Diet: ADA Diet Orders-Post D/C & Referrals Pneu Vac Indicated: Yes LEANDRO GOMEZ DO Jan 19, 2018 12:59
--- NOTE | 2018-01-19 13:05 | Cardiology Stress Test Report ---
Stress Test Report Type of NM Stress Test: Test Type: LEXISCAN 0.4MG/5ML Date of Procedure/Referring: Date of Procedure: Jan 19, [address] Matta Admitting Physician Donald Domingo Indications: Chest pain Baseline Heart Rate: 60 Baseline Blood Pressure: Blood Pressure Systolic: 148 Blood Pressure Diastolic: 67 Baseline EKG: Baseline EKG: Sinus rhythm Summary & Conclusion: Summary: The patient was brought to the stress lab after informed consent was taken. Stress test was performed according to the Lexiscan protocol. 0.4 mg of IV Lexiscan was given. Low-grade exercise was performed. Baseline EKG showed sinus rhythm at 60 BPM. Initial blood pressure was 151/64 mmHg. Maximum heart rate was 96 bpm and blood pressure 174/82 mmHg. Patient did not have any chest pain, arrhythmias or ST segment changes during the stress test. 10.94 mCi of Myoview were given for rest imaging and 32.9 mCi of Myoview given for stress imaging. Transient ischemic dilatation score 1.02, EF 69 percent. Normal wall motion. Small fixed apical defect likely an artifact. Conclusion: Pharmacological stress test was negative for ischemia. Normal LV function with no wall motion abnormalities. Small fixed apical defect likely an artifact. Low risk study. Bonnie COLLADO MD Jan 19, 2018 13:05
--- NOTE | 2018-01-19 13:06 | Short Stay Summary ---
History of Present Illness History of Present Illness Reason for visit/HPI Chest pain: This is a 62 yo female who sees Gerhard Domingo APRN at [facility] in [place]. Pt reports onset of chest pain yesterday am with associated nausea and shortness of air. Pt reports she struggles with anxiety and depression and often has physical complaints when she "has a bad day". Her CP was relieved by ASA and nitro in the ER and has not reoccured since admission. Pt has family history of CA, father at 57yo and mother at 61 yo from CAD. Pt has not had a prior cardiac work up. She has diet-controlled DM Type 2 - last A1c was 6.2% in 03/2017. Date of Admission Jan 18, 2018 at 15:58 Date of Discharge Jan 19, 2018 Time Seen by Provider: 10:45 Attending Physician Yaritza Suarez DO Admitting Physician Donald Domingo Cfnp Consult Allergies and Home Medications Allergies Coded Allergies: Penicillins (Verified Allergy, Unknown, 01/18/18) Home Medications Aripiprazole 5 Mg Tablet, 5 MG PO HS, (Reported) Aspirin 81 Mg Tablet.dr, 81 MG PO DAILY Prescribed by: LEANDRO GOMEZ on 01/19/18 1253 Atorvastatin Calcium 40 Mg Tablet, 40 MG PO DAILY Prescribed by: LEANDRO GOMEZ on 01/19/18 1253 Estrogens Conjugated 30 Gm Cr, VG TWICE WEEKLY, (Reported) Gluc 2Kcl/Chondr/Chris Hy/Hy AC 1 Each Capsule, 1 CAP PO BID, (Reported) Lisinopril 10 Mg Tablet, 10 MG PO DAILY Prescribed by: LEANDRO GOMEZ on 01/19/18 1253 Trazodone HCl 50 Mg Tablet, 50 MG PO HS, (Reported) Trazodone HCl 50 Mg Tablet, 25 MG PO 0800,1730, (Reported) TAKES 1/2 (50MG) TABLET Vitamin B Complex 1 Each Tablet, 1 TAB PO DAILY, (Reported) Zolpidem Tartrate 5 Mg Tablet, 5 MG PO HS, (Reported) [Vitamin C W/Zinc] , 1 TAB PO DAILY, (Reported) Patient Home Medication List Home Medication List Reviewed: Yes Past Ssvyncn-Trhrah-Ujkcnz Hx Patient Social History Alcohol Use: Denies Use Recreational Drug Use: No Smoking Status: Never a Smoker Physical Abuse Screen: No Sexual Abuse: No Recent Foreign Travel: No Contact w/other who traveled: No Recent Hopitalizations: No Recent Infectious Disease Expo: No Seasonal Allergies Seasonal Allergies: No Surgeries Yes Respiratory Yes Cardiovascular Yes Neurological No Reproductive System : No 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 Genitourinary No Gastrointestinal No Musculoskeletal No Endocrine History of Endocrine Disorders: No Endocrine Disorders: Diabetes, Non-Insulin dep (diet controlled) HEENT History of HEENT Disorders: No Cancer No Psychosocial History of Psychiatric Problem: Yes Behavioral Health Disorders: Anxiety, Depression Integumentary History of Skin or Integumenta: No Blood Transfusions History of Blood Disorders: No Adverse Reaction to a Blood Tr: No Family Medical History Significant Family History: Heart Disease, CAD Under 55 Years Old Family Hx: Hypertension 19 FATHER 19 MOTHER Myocardial infarction 19 FATHER ( of heart attack of 57) 19 MOTHER ( of heart attack at age 61) Review of Systems Constitutional: no symptoms reported EENTM: no symptoms reported Respiratory: no symptoms reported Cardiovascular: chest pain Gastrointestinal: no symptoms reported Genitourinary: no symptoms reported Musculoskeletal: back pain, joint pain, muscle pain Psychiatric/Neurological: Anxiety, Depressed Physical Exam Vital Signs Vital Signs - First Documented Capillary Refill : Less Than 3 Seconds Height, Weight, BMI Height: 5'4.00" Weight: 217lbs. 0.0oz. [id number]; 37.3 BMI Method:Stated General Appearance: No Apparent Distress, WD/WN HEENT: PERRL/EOMI Respiratory: Lungs Clear, Normal Breath Sounds, No Accessory Muscle Use, No Respiratory Distress Cardiovascular: Regular Rate, Rhythm, No Edema Neurologic/Psychiatric: Alert, Oriented x3, No Motor/Sensory Deficits Skin: Normal Color, Warm/Dry Clinical Quality Measures AMI/AHF: ASA po Prior to arrival: No DVT/VTE Risk/Contraindication: Risk Factor Score Per Nursin RFS Level Per Nursing on Admit: 3=High Short Stay Diagnosis Discharge Diagnosis-Short Stay Admission Diagnosis: 1. Chest pain with risk factors for cardiovasular disease 2. DM type 2, diet controlled without complications 3. Family history of CAD 4. Hypertension, uncontrolled Final Discharge Diagnosis: 1. Chest pain with risk factors for cardiovasular disease 2. DM type 2, diet controlled without complications 3. Family history of CAD 4. Hypertension, uncontrolled 5. Increased 10-year cardiovascular risk 6. Depression and Anxiety Conclusion Labs Laboratory Tests 01/18/18 14:09: White Blood Count 10.5, Red Blood Count 4.43, Hemoglobin 14.2, Hematocrit 42, Mean Corpuscular Volume 95, Mean Corpuscular Hemoglobin 32, Mean Corpuscular Hemoglobin Concent 34, Red Cell Distribution Width 13.3, Platelet Count 322, Mean Platelet Volume 10.0, Neutrophils (%) (Auto) 54, Lymphocytes (%) (Auto) 35 , Monocytes (%) (Auto) 8, Eosinophils (%) (Auto) 3, Basophils (%) (Auto) 0, Neutrophils # (Auto) 5.7, Lymphocytes # (Auto) 3.7, Monocytes # (Auto) 0.9, Eosinophils # (Auto) 0.3, Basophils # (Auto) 0.0, Prothrombin Time 12.4, INR Comment 0.9, Activated Partial Thromboplast Time 27, D-Dimer 0.45, Sodium Level 134L, Potassium Level 4.9, Chloride Level 107, Carbon Dioxide Level 18L, Anion Gap 9, Blood Urea Nitrogen 9, Creatinine 0.72, Estimat Glomerular Filtration Rate > 60, BUN/Creatinine Ratio 13, Glucose Level 158H, Calcium Level 9.8, Corrected Calcium 9.7, Magnesium Level 2.6H, Total Bilirubin 0.2, Aspartate Amino Transf (AST/SGOT) 28, Alanine Aminotransferase (ALT/SGPT) 20, Alkaline Phosphatase 63, Myoglobin 45.1, Troponin I < 0.30, Total Protein 7.5, Albumin 4.1 01/18/18 18:28: White Blood Count 10.4, Red Blood Count 4.43, Hemoglobin 14.2, Hematocrit 42, Mean Corpuscular Volume 95, Mean Corpuscular Hemoglobin 32, Mean Corpuscular Hemoglobin Concent 34, Red Cell Distribution Width 13.2, Platelet Count 321, Mean Platelet Volume 9.6, Neutrophils (%) (Auto) 50, Lymphocytes (%) (Auto) 40, Monocytes (%) (Auto) 7, Eosinophils (%) (Auto) 3, Basophils (%) (Auto) 0, Neutrophils # (Auto) 5.2, Lymphocytes # (Auto) 4.1H, Monocytes # (Auto) 0.8, Eosinophils # (Auto) 0.3, Basophils # (Auto) 0.0, Sodium Level 137, Potassium Level 4.2, Chloride Level 106, Carbon Dioxide Level 25, Anion Gap 6, Blood Urea Nitrogen 9, Creatinine 0.77, Estimat Glomerular Filtration Rate > 60, BUN/ Creatinine Ratio 12, Glucose Level 101, Calcium Level 10.0, Corrected Calcium 9.9, Total Bilirubin 0.3, Aspartate Amino Transf (AST/SGOT) 15, Alanine Aminotransferase (ALT/SGPT) 17, Alkaline Phosphatase 59, Myoglobin 52.6, Total Protein 7.3, Albumin 4.1, Total Creatine Kinase 88, Triglycerides Level 93, Cholesterol Level 173, LDL Cholesterol Direct 110, VLDL Cholesterol 19, HDL Cholesterol 52 01/18/18 21:21: Glucometer 125H 01/19/18 05:30: Troponin I < 0.30, Triglycerides Level 109, Cholesterol Level 159, LDL Cholesterol Direct 101, VLDL Cholesterol 22, HDL Cholesterol 49 01/19/18 05:56: Glucometer 106 01/19/18 10:57: Glucometer 161H Conclusion/Plan 1. Chest pain with risk factors for cardiovascular disease -Admitted for observation and seen in consultation by Dr. Novak - 2D Echo and Lexiscan done today, awaiting results. 2. DM type 2, diet controlled without complications - BS have been well controlled during hospitalization - will need an A1c and urine microalbumin in the clinic at follow-up 3. Family history of CAD 4. Hypertension, uncontrolled - start Lisinopril 10mg - discussed with patient the benefit of MIGUEL-I at protecting kidneys from the effects of DM as well as lowering BP to normal - pt agreeable to start medication 5. Increased 10-year cardiovascular risk - 11.% - start ASA 81mg and high dose statin 6. Depression and Anxiety - continue current regimen Disp: DC to home if cardiac testing is normal. F/U with Gerhard Domingo 01/25/18 at 2:20pm LEANDRO GOMEZ DO Jan 19, 2018 13:06
[2018-01-19 14:10] VITALS: BP 148/68
== END 2018-01-19 12:53 | disposition home or self-care (01) ==
LOC: EDUNIT# 14:00 → ER 14:01 → 4TH 15:58 → UNDOADMOB 15:58 → 4TH 17:20 → UNDODISOB 01-19 14:10
PROVIDERS: ADMIT Internal Medicine; ATTEND Internal Medicine
DX: R07.9 Chest pain, unspecified (principal); E11.9 Type 2 diabetes mellitus without complications; Z82.49 Family history of ischemic heart disease and other diseases of the circulatory system; I10 Essential (primary) hypertension; F32.9 Major depressive disorder, single episode, unspecified; F41.9 Anxiety disorder, unspecified
CPT/HCPCS: 36415; 71045; 78452; 80053; 80061; 82550; 82962; 83735; 83874; 84484; 85025; 85379; 85610; 85730; 93005; 93017; 93041; 93306; G0378

== ENCOUNTER → 2020-01-17 | Outpatient (CLI) | payer MEDICARE, OTHER ==
[~2020-01-17] MED LIST changes: +ARIP5TAB57 PO; +ASPI-1238 PO; +ATOR40TA70 PO; +EST30C VG; +GLUC-113 PO; -IOHEXOL 350 MG/ML 100 ML (OMNIPAQUE 350) VIAL IV ONE; +LISI10TA2 PO; -NS 100 ML (IVPB) BAG IV ONE; +TRZ50T PO; +VITA1TAB17 PO; +VITAMIN C PO; +ZINC PO; +ZOLP5TAB7 PO
--- NOTE | 2020-01-17 10:40 | Diagnostic Imaging Report ---
PROCEDURE: MRI left upper extremity without contrast. TECHNIQUE: Multiplanar, multisequence non contrast-enhanced MRI of the left upper extremity was accomplished. INDICATION: Fall out of bed with injury to left shoulder, 6-8 weeks ago COMPARISON: None FINDINGS: No acute fracture is seen in the left shoulder. Alignment appears normal. There are moderate to severe degenerative changes in the glenohumeral joint and severe degenerative changes in the acromioclavicular joint. There is a minimal joint effusion. There is a small 5 mm joint body in the biceps tendon sheath. There is a tiny low-grade partial-thickness intrasubstance tear of the distal supraspinatus tendon. There is a 8 mm low-grade partial-thickness tear at the distal infraspinatus tendon. The subscapularis tendon is intact. The teres minor tendon is intact. There is no muscular atrophy. The long head of the biceps tendon is intact. The glenoid labrum is suboptimally evaluated without intra-articular contrast but there does appear to be degeneration of the labrum, particularly posteriorly. The acromion has a slightly curved undersurface without hooking. The coracoclavicular and coracoacromial ligaments are intact. Soft tissues about the left shoulder are otherwise unremarkable. IMPRESSION: 1. Advanced degenerative changes in the left shoulder with no acute osseous abnormality seen. 2. Low-grade partial-thickness tears in the left rotator cuff. No high-grade partial-thickness or full-thickness tear is seen. Dictated by: Dictated on workstation # [id number]
== END ==
LOC: RAD 08:51
PROVIDERS: ATTEND Orthopaedic Surgery
DX: S46.012A Strain of muscle(s) and tendon(s) of the rotator cuff of left shoulder, initial encounter (principal); W06.XXXA Fall from bed, initial encounter; M19.012 Primary osteoarthritis, left shoulder
CPT/HCPCS: 73221

== ENCOUNTER 2021-02-15 12:42 | Emergency (ER) | payer MEDICARE ==
[~2021-02-15] VITALS: Ht 162.6 cm; Wt 96.2 kg
[~2021-02-15 12:42] MED LIST changes: -LISI10TA2 PO; +LISI10TA25 PO
[2021-02-15 13:05] LABS: BASOPHILS # (AUTO) 0.1 10^3/uL (0.0-0.1); BASOPHILS % (AUTO) 1 % (0-10); EOSINOPHILS # (AUTO) 0.3 10^3/uL (0.0-0.3); EOSINOPHILS % (AUTO) 2 % (0-10); HEMATOCRIT 48 % (35-52); HEMOGLOBIN 15.9 g/dL (11.5-16.0); LYMPHOCYTES # (AUTO) 4.1 10^3/uL (1.0-4.0); LYMPHOCYTES % (AUTO) 32 % (12-44); MEAN CORPUSCULAR HEMOGLOBIN 33 pg (25-34); MEAN CORPUSCULAR HGB CONC 33 g/dL (32-36); MEAN CORPUSCULAR VOLUME 98 fL (80-99); MEAN PLATELET VOLUME 9.7 fL (9.0-12.2); MONOCYTES # (AUTO) 0.9 10^3/uL (0.0-1.0); MONOCYTES % (AUTO) 7 % (0-12); NEUTROPHILS # (AUTO) 7.2 10^3/uL (1.8-7.8); NEUTROPHILS % (AUTO) 58 % (42-75); PLATELET COUNT 368 10^3/uL (130-400); WHITE BLOOD COUNT 12.6 10^3/uL (4.3-11.0)
[2021-02-15 13:08] LABS: ALBUMIN 4.1 GM/DL (3.2-4.5); POTASSIUM 4.2 MMOL/L (3.6-5.0)
[2021-02-15 13:10] LABS: CALCIUM 10.3 MG/DL (8.5-10.1)
[2021-02-15 13:11] LABS: TOTAL PROTEIN 7.5 GM/DL (6.4-8.2)
[2021-02-15 13:12] LABS: PROTHROMBIN TIME PATIENT 13.2 SEC (12.2-14.7)
[2021-02-15 13:13] LABS: BILIRUBIN,TOTAL 0.4 MG/DL (0.1-1.0)
[2021-02-15 13:14] LABS: CREATININE SERUM 1.14 MG/DL (0.60-1.30)
[2021-02-15 13:17] LABS: MAGNESIUM 2.2 MG/DL (1.6-2.4)
[2021-02-15] MEDS ORDERED: NS IV 1000 ML 1,000 ML IV SCH (13:30)
--- NOTE | 2021-02-15 13:31 | Diagnostic Imaging Report ---
EXAMINATION: Chest 1 view HISTORY: Chest pain COMPARISON: 01/18/2018 FINDINGS: Heart size and pulmonary vasculature are normal. The lungs are clear without consolidation, pleural effusion, or pneumothorax. Degenerative changes of the thoracic spine. Osseous structures are otherwise intact. IMPRESSION: 1. No acute radiographic abnormality in the chest. Dictated by: Dictated on workstation # [id number]
[2021-02-15] MEDS ORDERED: HOLD METFORMIN - RECEIVED CONTRAST 20 ML VIAL IV SCH (14:00)
[2021-02-15] MEDS ORDERED: NS 100 ML (IVPB) BAG IV ONE (14:00)
[2021-02-15] MEDS ORDERED: IOHEXOL 350 MG/ML 100 ML (OMNIPAQUE 350) VIAL IV ONE (14:00)
--- NOTE | 2021-02-15 14:18 | Diagnostic Imaging Report ---
EXAMINATION: CT cervical spine without contrast. TECHNIQUE: Multiple contiguous axial images were obtained through the cervical spine without the use of intravenous contrast. Sagittal and coronal reformations through the cervical spine were then performed. All CT scans use one or more of the following dose optimizing techniques: automated exposure control, MA and/or KvP adjustment based on patient size and exam type or iterative reconstruction. HISTORY: Fall, Neck pain COMPARISON: None available. FINDINGS: Vertebral body height and alignment are preserved. No acute fracture, dislocation, or destructive osseous process. No significant facet hypertrophy. No significant central canal or neuroforaminal stenosis. The paraspinous soft tissues are normal. The visualized thyroid gland is normal. The visualized lung apices are normal. IMPRESSION: 1. No cervical spine fracture. Dictated by: Dictated on workstation # [id number]
--- NOTE | 2021-02-15 14:20 | Diagnostic Imaging Report ---
EXAMINATION: CT angiography head and neck with and without contrast. TECHNIQUE: After intravenous administration of contrast, thin section axial CT angiography of the head and neck was performed to screen for LVO, and multiple reformats including MIP reconstructions. Postcontrast CT of the head was also obtained. All CT scans use one or more of the following dose optimizing techniques: automated exposure control, MA and/or KvP adjustment based on a patient size and exam type, or iterative reconstruction. CT angiogram was post-processed using RAPID LVO detection to include quantitative measurements of cerebral blood flow and automated results notification to the stroke and/or neurointerventional team. HISTORY: Dizziness, Fall COMPARISON: None available. FINDINGS: HEAD: Anterior circulation: The visualized portions of the internal carotid arteries are unremarkable without significant plaque or stenosis. The anterior and middle cerebral arteries show no stenosis or intraluminal filling defects. No anterior circulation aneurysms are present. Posterior circulation: The visualized distal vertebral arteries are patent to the vertebrobasilar junction. The basilar artery and both posterior cerebral arteries are widely patent without stenosis. No posterior circulation aneurysms are present. The ventricles and sulci are normal. Mild hypodensities throughout the supratentorial white matter of both cerebral hemispheres. No acute intracranial hemorrhage or abnormal extra-axial fluid collections are present. No abnormal meningeal or parenchymal enhancement. The calvarium is intact. The mastoid air cells are clear. Mucosal thickening of the paranasal sinuses. The orbits are normal. NECK: Arch: Conventional branching of the aortic arch. The visualized subclavian arteries are patent without stenosis. Right: The right common carotid, internal carotid, and external carotid arteries are widely patent without stenosis or dissection. No significant calcified plaque. The estimated internal carotid stenosis by NASCET criteria is 0%. The right vertebral artery is patent to the level of the vertebrobasilar junction. Left: The left common carotid, internal carotid, and external carotid arteries are widely patent without stenosis or dissection. No significant calcified plaque. The estimated internal carotid stenosis by NASCET criteria is 0%. The left vertebral artery is patent to the level of the vertebrobasilar junction. Other: The visualized thyroid gland is unremarkable. The cervical soft tissues are unremarkable. The visualized upper lungs and mediastinum are normal. The cervical osseous structures are normal. IMPRESSION: 1. Normal vasculature in the head and neck without large vessel occlusion. Dictated by: Dictated on workstation # [id number]
[2021-02-15 16:28] VITALS: BP_SYST 123; BP_SYST 126; BP_SYST 140; BP_DIAS 70; BP_DIAS 71; BP_DIAS 83
[2021-02-15 16:45] LABS: BILIRUBIN,URINE NEGATIVE (NEGATIVE); CLARITY,URINE CLEAR; COLOR,URINE YELLOW; GLUCOSE, URINE (UA) NEGATIVE (NEGATIVE); KETONES,URINE NEGATIVE (NEGATIVE); LEUKOCYTE ESTERASE ,URINE TRACE (NEGATIVE); NITRITE,URINE NEGATIVE (NEGATIVE); PROTEIN,URINE NEGATIVE (NEGATIVE)
[2021-02-15 16:54] LABS: BACTERIA,URINE TRACE /HPF
--- NOTE | 2021-02-15 17:14 | ED Syncope ---
General Chief Complaint: Dizziness/Syncope Stated Complaint: SYNCOPE Nursing Triage Note: Pt arrives via EMS from home with c/o syncopal episodes x3; twice today et once one week ago. Per EMS pt was laying on the floor when they arrived, BP 76/51. Pt reports chest pain yesterday but states it felt muscular. Pt also reports increased stress at home. When moving from the EMS stretcher to the ED stretcher pt stating "the room is spinning." Source of Information: EMS Exam Limitations: No Limitations History of Present Illness Date Seen by Provider: Feb 15, 2021 Time Seen by Provider: 12:44 Initial Comments This 65-year-old woman presents to the emergency room via EMS after having a syncopal episode in her workplace. She recalls being emotionally upset about an issue. She became lightheaded and short of breath. She then proceeded to have a brief syncopal episode. She did fall to the ground. Although it was reported that there was no significant impact or injury, she does have a laceration to the mucosal surface of her lower lip from her teeth. She denies any pain or other injury. It was reported that coworkers tried to help her sit up and then she had another brief syncopal episode. EMS reported an initial blood pressure of 76/51. She had heart rates noted at 50 bpm and 60 bpm initially for EMS as well. Patient reports having another episode 1 to 2 weeks ago in which she had near syncope. She got up in the morning and went to the restroom. While walking to the restroom she got very lightheaded and nearly syncopal. She remembers being quite nauseated during this episode but she did not vomit. These symptoms resolved and she did not seek attention for it. Patient reports having some chest pain yesterday. She denies any chest pain or palpitations today. EMS noted she was a bit diaphoretic on their arrival. Patient felt a little dizzy and stated the room was spinning after she awoke from the syncopal episode. She is not dizzy or lightheaded now. She has no known cardiopulmonary problems except for hypertension and asthma. C-collar was applied due to some mild neck discomfort and tenderness on the right posterior lateral aspect. Allergies and Home Medications Allergies Coded Allergies: Penicillins (Verified Allergy, Unknown, 01/18/18) Patient Home Medication List Home Medication List Reviewed: Yes Aripiprazole (Aripiprazole) 5 Mg Tablet, 5 MG PO HS, (Reported) Entered as Reported by: RIDDHI LABOY on 01/18/18 1456 Aspirin (Aspirin EC) 81 Mg Tablet.dr, 81 MG PO DAILY Prescribed by: LEANDRO GOMEZ on 01/19/18 1253 Atorvastatin Calcium (Atorvastatin Calcium) 40 Mg Tablet, 40 MG PO DAILY Prescribed by: LEANDRO GOMEZ on 01/19/18 1253 Estrogens Conjugated (Premarin) 30 Gm Cr, VG TWICE WEEKLY, (Reported) Entered as Reported by: JOVANNA SILVA on 01/19/18 1025 Gluc 2Kcl/Chondr/Chris Hy/Hy AC (Glucosamine & Chondroitin Cap) 1 Each Capsule, 1 CAP PO BID, (Reported) Entered as Reported by: JOVANNA SILVA on 01/19/18 1025 Lisinopril (Lisinopril) 10 Mg Tablet, 10 MG PO DAILY Prescribed by: LEANDRO GOMEZ on 01/19/18 1253 Trazodone HCl (Trazodone HCl) 50 Mg Tablet, 50 MG PO HS, (Reported) Entered as Reported by: RIDDHI LABOY on 01/18/18 1456 Trazodone HCl (Trazodone HCl) 50 Mg Tablet, 25 MG PO 0800,1730, (Reported) Entered as Reported by: JOVANNA SILVA on 01/19/18 1022 Vitamin B Complex (Vitamin B Complex) 1 Each Tablet, 1 TAB PO DAILY, (Reported) Entered as Reported by: JOVANNA SILVA on 01/19/18 1025 Zolpidem Tartrate (Zolpidem Tartrate) 5 Mg Tablet, 5 MG PO HS, (Reported) Entered as Reported by: RIDDHI LABOY on 01/18/18 1456 [Vitamin C W/Zinc] , 1 TAB PO DAILY, (Reported) Entered as Reported by: JOVANNA SILVA on 01/19/18 1025 Review of Systems Constitutional: no symptoms reported EENTM: no symptoms reported Respiratory: see HPI Cardiovascular: see HPI Gastrointestinal: see HPI Genitourinary: no symptoms reported : No Musculoskeletal: no symptoms reported Skin: no symptoms reported Psychiatric/Neurological: See HPI Past Okktyos-Gmezvc-Axdnzx Hx Patient Social History Tobacco Use?: No Use of E-Cig and/or Vaping dev: No Substance use?: No Alcohol Use?: No Pt feels they are or have been: No Seasonal Allergies Seasonal Allergies: No Past Medical History Surgeries: Yes Hysterectomy, Orthopedic (Dominguez's neuroma removal) Respiratory: Yes Asthma Cardiac: Yes Hypertension Neurological: No : 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 Genitourinary: No Gastrointestinal: No Musculoskeletal: No Endocrine: No Diabetes, Non-Insulin dep HEENT: No Cancer: No Psychosocial: Yes Anxiety, PTSD, Depression Integumentary: No Blood Disorders: No Adverse Reaction/Blood Tranf: No Family Medical History Hypertension 19 FATHER 19 MOTHER Myocardial infarction 19 FATHER ( of heart attack of 57) 19 MOTHER ( of heart attack at age 61) Heart Disease, CAD Under 55 Years Old Physical Exam Vital Signs Vital Signs - First Documented 02/15/21 12:45 Temp 36.7 Pulse 62 Resp 16 B/P (MAP) 117/56 (76) Pulse Ox 100 O2 Delivery Room Air Capillary Refill : Less Than 3 Seconds Height, Weight, BMI Height: 5'4.00" Weight: 217lbs. 0.0oz. [id number]; 36.00 BMI Method:Stated General Appearance: No Apparent Distress, WD/WN HEENT: PERRL/EOMI, Other (1 cm laceration on the mucosal surface of her lower lip. 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 Cranial Nerves: Normal Hearing, Normal Speech, PERRL Motor/Sensory: No Motor Deficit, No Sensory Deficit Skin: Normal Color, Warm/Dry Progress/Results/Core Measures Results/Orders Lab Results Laboratory Tests Test 02/15/21 12:45 02/15/21 16:15 02/15/21 16:30 Range/Units White Blood Count 12.6 H 4.3-11.0 10^3/uL Red Blood Count 4.85 3.80-5.11 10^6/uL Hemoglobin 15.9 11.5-16.0 g/dL Hematocrit 48 35-52 % Mean Corpuscular Volume 98 80-99 fL Mean Corpuscular Hemoglobin 33 25-34 pg Mean Corpuscular Hemoglobin Concent 33 32-36 g/dL Red Cell Distribution Width 12.5 10.0-14.5 % Platelet Count 368 130-400 10^3/uL Mean Platelet Volume 9.7 9.0-12.2 fL Immature Granulocyte % (Auto) 0 % Neutrophils (%) (Auto) 58 42-75 % Lymphocytes (%) (Auto) 32 12-44 % Monocytes (%) (Auto) 7 0-12 % Eosinophils (%) (Auto) 2 0-10 % Basophils (%) (Auto) 1 0-10 % Neutrophils # (Auto) 7.2 1.8-7.8 10^3/uL Lymphocytes # (Auto) 4.1 H 1.0-4.0 10^3/uL Monocytes # (Auto) 0.9 0.0-1.0 10^3/uL Eosinophils # (Auto) 0.3 0.0-0.3 10^3/uL Basophils # (Auto) 0.1 0.0-0.1 10^3/uL Immature Granulocyte # (Auto) 0.1 0.0-0.1 10^3/uL Prothrombin Time 13.2 12.2-14.7 SEC INR Comment 1.0 0.8-1.4 Activated Partial Thromboplast Time 26 24-35 SEC Sodium Level 136 135-145 MMOL/L Potassium Level 4.2 3.6-5.0 MMOL/L Chloride Level 102 98-107 MMOL/L Carbon Dioxide Level 22 21-32 MMOL/L Anion Gap 12 5-14 MMOL/L Blood Urea Nitrogen 12 7-18 MG/DL Creatinine 1.14 0.60-1.30 MG/DL Estimat Glomerular Filtration Rate 48 BUN/Creatinine Ratio 11 Glucose Level 140 H 70-105 MG/DL Calcium Level 10.3 H 8.5-10.1 MG/DL Corrected Calcium 10.2 H 8.5-10.1 MG/DL Magnesium Level 2.2 1.6-2.4 MG/DL Total Bilirubin 0.4 0.1-1.0 MG/DL Aspartate Amino Transf (AST/SGOT) 22 5-34 U/L Alanine Aminotransferase (ALT/SGPT) 21 0-55 U/L Alkaline Phosphatase 68 40-136 U/L Myoglobin 95.3 H 10.0-92.0 NG/ML Troponin I < 0.028 < 0.028 <0.028 NG/ML C-Reactive Protein High Sensitivity 0.09 0.00-0.50 MG/DL Total Protein 7.5 6.4-8.2 GM/DL Albumin 4.1 3.2-4.5 GM/DL Urine Color YELLOW Urine Clarity CLEAR Urine pH 6.0 5-9 Urine Specific Hooper 1.010 L 1.016-1.022 Urine Protein NEGATIVE NEGATIVE Urine Glucose (UA) NEGATIVE NEGATIVE Urine Ketones NEGATIVE NEGATIVE Urine Nitrite NEGATIVE NEGATIVE Urine Bilirubin NEGATIVE NEGATIVE Urine Urobilinogen 0.2 < = 1.0 MG/DL Urine Leukocyte Esterase TRACE H NEGATIVE Urine RBC (Auto) NEGATIVE NEGATIVE Urine RBC NONE /HPF Urine WBC 5-10 H /HPF Urine Squamous Epithelial Cells 2-5 /HPF Urine Crystals NONE /LPF Urine Bacteria TRACE /HPF Urine Casts PRESENT /LPF Urine Hyaline Casts 10-25 H /LPF Urine Mucus NEGATIVE /LPF Urine Culture Indicated YES My Orders Orders - DENIS CHANEL MD Cbc With Automated Diff (02/15/21 12:59) Magnesium (02/15/21 12:59) Chest 1 View, Ap/Pa Only (02/15/21 12:59) Ekg Tracing (02/15/21 12:59) Comprehensive Metabolic Panel (02/15/21 12:59) Myoglobin Serum (02/15/21 12:59) Protime With Inr (02/15/21 12:59) Partial Thromboplastin Time (02/15/21 12:59) O2 (02/15/21 12:59) Monitor-Rhythm Ecg Trace Only (02/15/21 12:59) Lipid Panel (02/16/21 06:00) Ed Iv/Invasive Line Start (02/15/21 12:59) Troponin I (02/15/21 12:59) Ua Culture If Indicated (02/15/21 12:59) Ns Iv 1000 Ml (Sodium Chloride 0.9%) (02/15/21 13:30) Iohexol Injection (Omnipaque 350 Mg/Ml 1 (02/15/21 14:00) Received Contrast (Hold Metformin- Contr (02/15/21 14:00) Ns (Ivpb) (Sodium Chloride 0.9% Ivpb Bag (02/15/21 14:00) Ct Cervical Spine Wo (02/15/21 13:55) Ct Angio Head/Neck (02/15/21 13:58) Hs C Reactive Protein (02/15/21 14:29) Troponin I (02/15/21 16:15) Orthostatic Vital Signs (Adult (02/15/21 15:41) Urine Culture (02/15/21 16:30) Medications Given in ED Current Medications Medications Dose Ordered Sig/Nicole Route Start Time Stop Time Status Last Admin Dose Admin Iohexol 100 ml ONCE ONCE IV 02/15/21 14:00 02/15/21 14:01 DC 02/15/21 14:05 75 ML Sodium Chloride 100 ml ONCE ONCE IV 02/15/21 14:00 02/15/21 14:01 DC 02/15/21 14:05 80 ML Vital Signs/I&O 02/15/21 02/15/21 02/15/21 12:45 12:45 16:28 Temp 36.7 Pulse 62 64 66 64 Resp 16 B/P (MAP) 117/56 (76) 123/71 (88) 140/70 (93) 126/83 (97) Pulse Ox 100 100 O2 Delivery Room Air Room Air Blood Pressure Mean: 97 Initial ECG Impression Date: Feb 15, 2021 Initial ECG Impression Time: 12:55 Initial ECG Rate: 63 Initial ECG Rhythm: Normal Sinus Comment Sinus rhythm with no ST elevation or depression. PAC noted. No abnormal intervals or axis deviation. Departure Impression Primary Impression: Syncope Qualified Codes: R55 - Syncope and collapse Additional Impressions: Laceration of lip Qualified Codes: S01.511A - Laceration without foreign body of lip, initial encounter Urinary tract infection Qualified Codes: N39.0 - Urinary tract infection, site not specified Disposition: HOME, SELF-CARE Condition: Improved Departure-Patient Inst. Decision time for Depature: 17:50 Referrals: [facility] (PCP/Family) Primary Care Physician ERICKA PARSONS MD Patient Instructions: Urinary Tract Infections in Adults Add. Discharge Instructions: Drink plenty of clear liquids to stay well-hydrated. Complete your antibiotic as prescribed for urinary tract infection. Follow-up with your primary care provider soon as possible. Please call on Wednesday morning to try to bump up your appointment time. At that appointment discuss further work-up which might include a cardiac tech. I recommend that you also seek referral to a rental salesperson. You may call Dr. Parsons's office at the number provided below on Wednesday as well. Do not drive, operate machinery, swim, use heights such as a ladder, or do other activities that could be dangerous if you should have another episode of passing out. Observe these precautions until you are cleared by your doctor or a rental salesperson. Call with questions or concerns. Return to the ER if you have returning symptoms or have other worsening symptoms. All discharge instructions reviewed with patient and/or family. Voiced understanding. Scripts Cephalexin (Cephalexin) 500 Mg Tablet 500 MG PO TID, #20 TAB Prov: DENIS CHANEL MD 02/15/21 DENIS CHANEL MD Feb 15, 2021 17:13
[2021-02-15] MEDS ORDERED: CEPHALEXIN 250 MG (KEFLEX) CAP PO STA (17:49)
[2021-02-15] MEDS ORDERED: CEPH500T PO (17:55)
== END 2021-02-15 18:15 | disposition home or self-care (01) ==
LOC: EDUNIT# 12:42 → ER 12:44
DX: S01.511A Laceration without foreign body of lip, initial encounter (principal); R55 Syncope and collapse; N39.0 Urinary tract infection, site not specified; J45.909 Unspecified asthma, uncomplicated; I10 Essential (primary) hypertension; E11.9 Type 2 diabetes mellitus without complications; F41.9 Anxiety disorder, unspecified; F32.9 Major depressive disorder, single episode, unspecified; Z79.82 Long term (current) use of aspirin; Z79.899 Other long term (current) drug therapy; X58.XXXA Exposure to other specified factors, initial encounter
CPT/HCPCS: 36415; 70496; 70498; 71045; 72125; 80053; 81000; 83735; 83874; 84484; 85025; 85610; 85730; 86141; 87088; 93005; 93041

== ENCOUNTER → 2021-03-24 | Outpatient (CLI) | payer MEDICARE ==
[~2021-03-24] MED LIST changes: +CEPH500T PO
== END ==
LOC: CARD 12:00
PROVIDERS: ATTEND Internal Medicine Cardiovascular Disease
DX: R55 Syncope and collapse (principal)
CPT/HCPCS: 93225; 93226; 93306

== ENCOUNTER → 2021-04-01 | Outpatient (CLI) | payer MEDICARE ==
[~2021-04-01] VITALS: Ht 162 cm; Wt 100.0 kg
[~2021-04-01] MED LIST changes: +CATHETER FLUSH 10 ML SYR IV PRN; +REGADENOSON 0.4 MG/5 ML SYR (LEXISCAN) IV ONE
--- NOTE | 2021-04-02 09:59 | STRESS TEST ---
DATE OF SERVICE: RESTING AND POST REGADENOSON TECHNETIUM-99M TETROFOSMIN SPECT CT IMAGING ORDERING PHYSICIAN: Dr. Yap. PRIMARY PHYSICIAN: [facility]. CLINICAL DIAGNOSIS: Syncope. Baseline images were carried out after injection of 10.2 mCi of technetium-99m Tetrofosmin. This was followed by 0.4 mg regadenoson and 29.2 mCi of technetium-99m Tetrofosmin for stress imaging. The electrocardiogram showed sinus rhythm at baseline. It did not change significantly with the regadenoson infusion. She had some nausea and mild shortness of breath following regadenoson infusion, which resolved in a few minutes. Review of images at rest and following stress does not indicate any significant perfusion defects consistent with myocardial ischemia or infarction. Gated images show normal global left ventricular systolic function with normal regional wall motion. Left ventricular ejection fraction is calculated to be 61%. Left ventricular end-diastolic volume is 72 mL. TID is absent (0.96). CONCLUSIONS: 1. No evidence of any significant myocardial ischemia or infarction on this study. 2. Normal regional wall motion. 3. Normal global left ventricular systolic function with a calculated ejection fraction of 61%. Job ID: [id number] DocumentID: [id number] Dictated Date: 04/02/2021 09:28:04 Associate Professor Of Musicology Date: 04/02/2021 09:57:34 Dictated By: MEGHA YAP MD, MA, FACP, FACC,
== END ==
LOC: CARD 07:32
PROVIDERS: ATTEND Internal Medicine Cardiovascular Disease
DX: R55 Syncope and collapse (principal)
CPT/HCPCS: 78452; 93017; A9502